=== PATIENT | female | born 1945 | race Caucasian/White ===

== ENCOUNTER 2016-12-04 07:26 | Day surgery (SDC) | payer MEDICARE, OTHER ==
[2016-11-29 10:54] VITALS: BMI 23.1
[~2016-12-04 07:26] MED LIST: LACTATED RINGERS 1,000 ML IV SCH; LIDOCAINE 1% 20 ML VIAL (10MG/ML) FOR IV START INTRADERMA PRN
[2016-12-04 07:41] VITALS: RESP 16; TEMP 97.4
[2016-12-04] MEDS ORDERED: PROPOFOL 10 MG/ML 20 ML VIAL IV ONE (07:50)
--- NOTE | 2016-12-04 07:54 | P.GSHP ---
History of Present Illness H&P Date: 12/04/16 Chief Complaint: Screening colonoscopy This a 71-year-old female who presents today for screening colonoscopy. Patient states her last colonoscopy approximately 6 years ago. She denies a significant GI complaints. - Constitutional Constitutional: Reports as per HPI Past Medical History Past Medical History: Atrial Fibrillation, COPD, CVA/TIA, Fibromyalgia, Hyperlipidemia, Hypertension, Seizure Disorder, Thyroid Disorder Additional Past Medical History / Comment(s): SEIZURE- LAST ONE 2007 History of Any Multi-Drug Resistant Organisms: None Reported Past Surgical History: Heart Catheterization, Hysterectomy Additional Past Surgical History / Comment(s): HILDA CATARACT, cardioversion 2013 Past Anesthesia/Blood Transfusion Reactions: No Reported Reaction Past Psychological History: No Psychological Hx Reported Additional Psychological History / Comment(s): CYMBALTA Smoking Status: Current every day smoker Past Alcohol Use History: Occasional Additional Past Alcohol Use History / Comment(s): STARTED SMOKING AT AGE 18 SMOKES LESS THAN A 1/2PPD Past Drug Use History: None Reported - Past Family History Father Additional Family Medical History / Comment(s): AT AGE 96, MACULAR DEGENERATION, AFIB AT AGE 90 Mother Family Medical History: No Reported History Additional Family Medical History / Comment(s): MOM AT AGE 89-ALZHEIMERS Medications and Allergies Home Medications Medication Instructions Recorded Confirmed Type Baclofen [Lioresal] 10 mg PO QAM 07/27/14 12/04/16 History DULoxetine HCL [Cymbalta] 60 mg PO QAM 07/27/14 12/04/16 History Gabapentin [Neurontin] 600 mg PO TID 07/27/14 12/04/16 History Levothyroxine Sodium [Synthroid] 75 mcg PO QAM 07/27/14 12/04/16 History Cholecalciferol [Vitamin D3] 1,000 unit PO DAILY 09/01/14 12/04/16 History Digoxin [Digox] 125 mcg PO QAM 09/01/14 12/04/16 History Metoprolol Tartrate [Lopressor] 12.5 mg PO BID 09/01/14 12/04/16 History Niacin 250 mg PO DAILY 09/01/14 12/04/16 History Fluticasone/Salmeterol [Advair 1 puff INHALATION RT-BID PRN 10/25/16 12/04/16 History 250-50 Diskus] lamoTRIgine [LaMICtal] 25 mg PO BID 10/25/16 12/04/16 History Simvastatin [Zocor] 40 mg PO HS 10/26/16 12/04/16 History Aspirin 81 mg PO DAILY 11/29/16 12/04/16 History Allergies Allergy/AdvReac Type Severity Reaction Status Date / Time adhesive tape Allergy Rash/ITCHIN Verified 11/29/16 10:14 G latex Allergy Rash/Hives Verified 11/29/16 10:14 meperidine HCl [From Demerol] AdvReac Nausea & Verified 11/29/16 10:14 Vomiting,HEADACHE Surgical - Exam Vital Signs Temp Pulse Resp BP Pulse Ox 97.4 F L 74 16 133/80 99 12/04/16 07:39 12/04/16 07:39 12/04/16 07:39 12/04/16 07:39 12/04/16 07:39 - General well developed, no distress - Eyes PERRL - ENT normal pinna - Neck no masses - Respiratory normal expansion - Cardiovascular Rhythm: regular - Abdomen Abdomen: soft, non tender Assessment and Plan Plan: We'll perform screening colonoscopy.
--- NOTE | 2016-12-04 08:06 | P.OP ---
Date of Procedure: 12/04/16 Preoperative Diagnosis: Screening colonoscopy Postoperative Diagnosis: Diverticulosis External hemorrhoids Procedure(s) Performed: Colonoscopy Anesthesia: MAC Surgeon: Michael Mendoza Pathology: none sent Condition: stable Disposition: PACU Description of Procedure: The patient's placed on the endoscopy table in the lateral position. She received IV sedation. Digital rectal exam was performed which revealed external hemorrhoids. The flexible colonoscope was then placed patient anus passed throughout the entire colon. The ileocecal valve was visualized. The cecum, ascending and transverse colon appeared normal. In the descending and sigmoid: was mild diverticular changes. The scope was then brought back into the rectum. This appeared normal. Scope was withdrawn for patient.
[2016-12-04 08:34] VITALS: BP 157/98; PULSE 67
== END 2016-12-04 08:46 | disposition home or self-care (01) ==
LOC: ORWHC2ENDO 07:26
PROVIDERS: ATTEND Surgery
DX: Z12.11 Encounter for screening for malignant neoplasm of colon (principal); K57.30 Diverticulosis of large intestine without perforation or abscess without bleeding; K64.4 Residual hemorrhoidal skin tags; I10 Essential (primary) hypertension; F17.200 Nicotine dependence, unspecified, uncomplicated; I48.91 Unspecified atrial fibrillation; M79.7 Fibromyalgia; E07.9 Disorder of thyroid, unspecified; E78.5 Hyperlipidemia, unspecified; G40.909 Epilepsy, unspecified, not intractable, without status epilepticus; Z88.5 Allergy status to narcotic agent; Z91.040 Latex allergy status; Z79.899 Other long term (current) drug therapy; Z79.82 Long term (current) use of aspirin; Z79.51 Long term (current) use of inhaled steroids; Z86.73 Personal history of transient ischemic attack (TIA), and cerebral infarction without residual deficits
CPT/HCPCS: J2704; G0121

== ENCOUNTER → 2017-04-25 | Outpatient (CLI) | payer MEDICARE, OTHER ==
[2017-04-25 16:43] LABS: Anisocytosis Slight; Basophils # (A) 0.1 k/uL (0-0.2); Basophils % (A) 1 %; CH 22.3; Eosinophils # (A) 0.1 k/uL (0-0.7); Eosinophils % (A) 2 %; HCT 35.3 % (34.0-46.0); HDW 3.29; HGB 10.5 gm/dL (11.4-16.0); Hypochromasia Marked; Luc # (Auto) 0.11; Luc % (Auto) 2; Lymphocytes # (A) 1.1 k/uL (1.0-4.8); Lymphocytes % (A) 19 %; MCH 23.1 pg (25.0-35.0); MCHC 29.9 g/dL (31.0-37.0); MCV 77.3 fL (80.0-100.0); Mean Platelet Volume 6.4; Microcytosis Slight; Monocytes # (A) 0.4 k/uL (0-1.0); Monocytes % (A) 7 %; Neutrophils # (A) 3.9 k/uL (1.3-7.7); Neutrophils % (A) 69 %; RBC 4.57 m/uL (3.80-5.40); RDW 17.1 % (11.5-15.5); WBC 5.7 k/uL (3.8-10.6)
[2017-04-25 16:57] LABS: Calcium 9.4 mg/dL (8.4-10.2); Potassium 4.1 mmol/L (3.5-5.1); Total Bilirubin 0.8 mg/dL (0.2-1.3)
[2017-04-25 19:08] LABS: Hemoglobin A1C 5.3 % (4.2-6.1)
== END ==
LOC: LABWHC1 16:19
PROVIDERS: ATTEND Internal Medicine Geriatric Medicine
DX: E03.9 Hypothyroidism, unspecified (principal); F41.1 Generalized anxiety disorder; R79.89 Other specified abnormal findings of blood chemistry
CPT/HCPCS: 36415; 80053; 83036; 84439; 84443; 85025

== ENCOUNTER → 2018-01-23 | Outpatient (CLI) | payer MEDICARE, OTHER ==
[2018-01-23 07:53] LABS: Basophils # (A) 0.1 k/uL (0-0.2); Basophils % (A) 1 %; Eosinophils # (A) 0.2 k/uL (0-0.7); Eosinophils % (A) 4 %; HCT 43.6 % (34.0-46.0); HGB 14.6 gm/dL (11.4-16.0); Lymphocytes # (A) 0.8 k/uL (1.0-4.8); Lymphocytes % (A) 12 %; MCHC 33.4 g/dL (31.0-37.0); MCV 89.8 fL (80.0-100.0); Mean Platelet Volume 6.7; Monocytes # (A) 0.3 k/uL (0-1.0); Monocytes % (A) 5 %; Neutrophils # (A) 4.8 k/uL (1.3-7.7); Neutrophils % (A) 76 %; Platelet Count 228 k/uL (150-450); RBC 4.86 m/uL (3.80-5.40); RDW 13.3 % (11.5-15.5); WBC 6.3 k/uL (3.8-10.6)
[2018-01-23 08:20] LABS: ALT 12 U/L (9-52); AST 10 U/L (14-36); Albumin 3.8 g/dL (3.5-5.0); Alkaline Phosphatase 81 U/L (38-126); Anion Gap 10 mmol/L; Blood Urea Nitrogen 13 mg/dL (7-17); Calcium 9.4 mg/dL (8.4-10.2); Carbon Dioxide 27 mmol/L (22-30); Chloride 105 mmol/L (98-107); Cholesterol 167 mg/dL (<200); Glucose 85 mg/dL (74-99); HDL Cholesterol 58 mg/dL (40-60); LDL Cholesterol,Calculated 96 mg/dL (0-99); Potassium 4.2 mmol/L (3.5-5.1); Sodium 142 mmol/L (137-145); Total Bilirubin 0.6 mg/dL (0.2-1.3); Total Protein 6.5 g/dL (6.3-8.2); Triglycerides 63 mg/dL (<150)
[2018-01-23 08:24] LABS: T4, Free (Free Thyroxine) 1.28 ng/dL (0.78-2.19)
[2018-01-23 16:53] LABS: Hemoglobin A1C 4.2 % (4.0-6.0)
== END | disposition home or self-care (01) ==
LOC: LABWHC1 07:10
PROVIDERS: ATTEND Internal Medicine Geriatric Medicine
DX: Z00.00 Encounter for general adult medical examination without abnormal findings (principal); E03.9 Hypothyroidism, unspecified; E78.5 Hyperlipidemia, unspecified; R79.89 Other specified abnormal findings of blood chemistry
CPT/HCPCS: 36415; 80053; 80061; 83036; 84439; 84443; 85025

== ENCOUNTER → 2018-07-21 | Outpatient (CLI) | payer MEDICARE, OTHER ==
--- NOTE | 2018-07-22 08:46 | BD ---
EXAMINATION TYPE: Axial Bone Density DATE OF EXAM: 07/21/2018 COMPARISON: 07/08/2016 CLINICAL HISTORY: Osteoporosis Height: 63 IN Weight: 132 LBS FRAX RISK QUESTIONS: Family History (Parent hip fracture): YES MOTHER Secondary Osteoporosis: 3. Menopause before 45: YES AGE 35 : Current Tobacco Use: YES RISK FACTORS HISTORY OF: Active: YES Diet low in dairy products/other sources of calcium: YES Postmenopausal woman: AGE 35 MEDICATIONS: Thyroid Medications: YES Which medication: Synthroid How Lon + YEARS Additional Medications: VIT D, IRON, SYNTHROID, CHOLESTEROL, BLOOD PRESSURE MEDS, DEPRESSION MEDS, FI BROMYALGIA MEDS, HEART MEDS EXAM MEASUREMENTS: Bone mineral densitometry was performed using the [employer] System. Bone mineral density as measured about the Lumbar spine is: ----- L1-L4(G/cm2): 1.014 T Score Values are as follows: ----- L2: -1.4 ----- L3: -1.5 ----- L4: -1.7 ----- L1-L4: -1.4 Bone mineral density has: Increased 5.4% since study of: 07/08/2016 Bone mineral density about the R hip (g/cm2): 0.752 Bone mineral density about the L hip (g/cm2): 0.717 T Score values are as follows: -----R Neck: -2.1 -----L Neck: -2.3 -----R Total: -1.2 -----L Total: -1.3 Bone mineral density has: Decreased -2.6% SINCE study of: 07/08/2016 IMPRESSION: Osteopenia (T Score between -2.5 and -1). There is increased risk of fracture and the patient may be considered for treatment. Re-Screen 2-5 years. NOTE: T-SCORE=SD OF THE YOUNG ADULT MEAN.
--- NOTE | 2018-07-22 14:21 | MM ---
Reason for exam: screening (asymptomatic). Last mammogram was performed 2 years ago. History: Patient is postmenopausal. Took hormonal contraceptives for 5 years. Physical Findings: A clinical breast exam by your physician is recommended on an annual basis and results should be correlated with mammographic findings. MG 3D Screening Mammo W/Cad Bilateral CC and MLO view(s) were taken. Technologist: RT Tiffany (R)(M) Prior study comparison: July 18, 2016, bilateral MG 3d screening mammo w/cad. February 23, 2014, bilateral digital screening mammo w/CAD. The breast tissue is heterogeneously dense. This may lower the sensitivity of mammography. No significant changes when compared with prior studies. ASSESSMENT: Benign, BI-RAD 2 RECOMMENDATION: Routine screening mammogram of both breasts in 1 year.
== END | disposition home or self-care (01) ==
LOC: RADMAMWWP 15:29
PROVIDERS: ATTEND Internal Medicine Geriatric Medicine
DX: Z12.31 Encounter for screening mammogram for malignant neoplasm of breast (principal); M85.80 Other specified disorders of bone density and structure, unspecified site; M81.0 Age-related osteoporosis without current pathological fracture
CPT/HCPCS: 77063; 77067; 77080

== ENCOUNTER → 2018-11-18 | Outpatient (CLI) | payer MEDICARE ==
[2018-11-18 15:19] LABS: Basophils % (A) 1 %; Eosinophils # (A) 0.2 k/uL (0-0.7); Eosinophils % (A) 3 %; HCT 45.3 % (34.0-46.0); HGB 14.6 gm/dL (11.4-16.0); Lymphocytes # (A) 0.9 k/uL (1.0-4.8); Lymphocytes % (A) 14 %; MCH 29.1 pg (25.0-35.0); MCHC 32.3 g/dL (31.0-37.0); MCV 90.2 fL (80.0-100.0); Mean Platelet Volume 7.2; Monocytes # (A) 0.3 k/uL (0-1.0); Monocytes % (A) 6 %; Neutrophils # (A) 4.6 k/uL (1.3-7.7); Neutrophils % (A) 75 %; Platelet Count 234 k/uL (150-450); RBC 5.02 m/uL (3.80-5.40); RDW 13.2 % (11.5-15.5); WBC 6.1 k/uL (3.8-10.6)
[2018-11-18 15:39] LABS: Albumin 3.9 g/dL (3.5-5.0); Calcium 9.3 mg/dL (8.4-10.2); Potassium 4.7 mmol/L (3.5-5.1); Total Bilirubin 0.7 mg/dL (0.2-1.3); Total Protein 6.8 g/dL (6.3-8.2)
--- NOTE | 2018-11-18 16:11 | US ---
EXAMINATION TYPE: US carotid duplex BILAT DATE OF EXAM: 11/18/2018 COMPARISON: US 2013 CLINICAL HISTORY: altered mental status R41.82. Altered mental status EXAM MEASUREMENTS: RIGHT: Peak Systolic Velocity (PSV) cm/sec ----- Right CCA: 55.2 ----- Right ICA: 67.6 ----- Right ECA: 66.6 ICA/CCA ratio: 1.2 RIGHT: End Diastole cm/sec ----- Right CCA: 14.7 ----- Right ICA: 18.4 ----- Right ECA: 0.0 LEFT: Peak Systolic Velocity (PSV) cm/sec ----- Left CCA: 58.9 ----- Left ICA: 76.1 ----- Left ECA: 63.9 ICA/CCA ratio: 1.3 LEFT: End Diastole cm/sec ----- Left CCA: 14.9 ----- Left ICA: 24.8 ----- Left ECA: 0.0 VERTEBRALS (direction of flow): Right Vertebral: Antegrade Left Vertebral: Antegrade Rhythm: Arrhythmia No elevated velocities, no significant stenosis. Intimal thickening and areas of atherosclerotic plaq ue. IMPRESSION: 1. No significant hemodynamic stenosis as visualized. 2. Correlate for cardiac dysrhythmia. Criteria for Assigning % of Stenosis / Diameter reduction (Estimation based on the indirect measurements of the internal carotid artery velocities (ICA PSV). 1. Normal (no stenosis)=ICA PSV < 125 cm/s: ratio < 2.0: ICA EDV<40 cm/s. 2. Less than 50% stenosis=ICA PSV < 125 cm/s: ratio < 2.0: ICA EDV<40 cm/s. 3. 50 to 69% stenosis=ICA PSV of 125 to 230 cm/s: ration 2.0 ? 4.0: ICA EDV 40-100 cm/s. 4. Greater than 70% stenosis to near occlusion= ICA PSV > 230 cm/s: ratio > 4.0: ICA EDV > 100 cm/s. 5. Near occlusion= ICA PSV velocities may be low or undetectable: variable ratio and ICA EDV. 6. Total occlusion=unable to detect flow.
--- NOTE | 2018-11-18 17:01 | CT ---
EXAMINATION TYPE: CT brain wo/w con DATE OF EXAM: 11/18/2018 COMPARISON: 10/13/2014 HISTORY: Confusion CT DLP: 2253 mGycm Automated Exposure Control for Dose Reduction was Utilized. TECHNIQUE: CT scan of the head is performed with IV contrast.,CT scan of the head is performed withou t and with without and with IV Contrast, patient injected with 100 mL of Isovue 300. FINDINGS: There is a similar appearing soft tissue attenuated heterogenous 1.2 cm in thickness subc utaneous elongated lesion within the frontal scalp in comparison to exam of 2013. There is no new cor tical erosion seen. Additional scalp lesion within the left frontal vertex is also similar to the olivia or 2014 containing dystrophic calcifications. These both demonstrate heterogenous enhancement. Other smaller scalp lesions are again appreciated. Noncontrast images show no acute intracranial hemorrhage or midline shift. Few nonenhancing hypoatten uated foci are scattered throughout the subcortical and periventricular white matter. The ventricles and sulci are symmetrically prominent compatible with age-related volume loss. Additio sylvia there is ex vacuo dilatation of the anterior horn of the left lateral ventricle from the lacuna r injury. There is an old lacunar infarct of the left caudate nucleus involving the anterior limb of the left internal capsule. Postcontrast images show no suspicious enhancing intraparenchymal mass. The globes are intact and the visualized sinuses are clear. The left posterior communicating artery is either extremely diminutive or congenitally absent and therefore the [place] does not appear complete. Atherosclerosis is noted of the cavernous and supraclinoid portions of the internal carotid arteries. IMPRESSION: 1. Old lacunar infarct involving the left caudate nucleus and anterior limb of the left internal caps ule. 2. Similar appearing heterogenous enhancing scalp masses in comparison to the exam of 2013. There is no new cortical erosion. Dermatologic evaluation is recommended. 3. No abnormal intracranial enhancement, acute intracranial hemorrhage, or midline shift. 4. Age-related cerebral volume loss and mild burden nonspecific white matter change, most commonly on the basis of microangiopathy.
== END | disposition home or self-care (01) ==
LOC: RADUSMAIN 14:38
PROVIDERS: ATTEND Internal Medicine Geriatric Medicine
DX: G31.1 Senile degeneration of brain, not elsewhere classified (principal); R90.89 Other abnormal findings on diagnostic imaging of central nervous system; R41.82 Altered mental status, unspecified
CPT/HCPCS: 80053; 85025; 93880; 70470; Q9967

== ENCOUNTER → 2018-11-26 | Outpatient (CLI) | payer MEDICARE ==
--- NOTE | 2018-11-26 20:32 | EEG ---
ELECTROENCEPHALOGRAM REPORT DATE OF OUTPATIENT EE11/26/2018 ELECTROENCEPHALOGRAPHIC EXAMINATION REPORT: INDICATION FOR EXAMINATION: This patient is a 73-year-old female being evaluated for increasing symptoms of forgetfulness and memory loss. AGE: [age]. EEG FINDINGS: A routine 21-channel awake digital EEG recording was accomplished utilizing the 10-20 international system with bipolar and referential montages. The background activity in the most alert resting state consists of a low to medium amplitude, fairly well developed and well sustained 6-7 Hz activity over the posterior head regions. This posterior rhythm attenuates to eye opening. There is a small amount of low amplitude 18-20 Hz beta activity seen maximally over the anterior head regions. Muscle and movement artifact was observed on a few occasions during the tracing. Hyperventilation was not performed. Photic stimulation at flash frequencies of 2-30 Hz produced a minimal occipital driving response. No epileptiform discharges were seen. IMPRESSION: This EEG is mildly abnormal in a diffuse fashion due to slight slowing of the EEG background. The EEG failed to reveal any focal, lateralized, or epileptiform abnormalities. Clinical correlation is recommended. MMODL / IJN: [id number] /
== END ==
LOC: NEUROMAIN 13:23
PROVIDERS: ATTEND Internal Medicine Geriatric Medicine
DX: R41.82 Altered mental status, unspecified (principal)
CPT/HCPCS: 95816

== ENCOUNTER → 2018-11-27 | Outpatient (CLI) | payer MEDICARE ==
--- NOTE | 2018-11-27 14:38 | XR ---
EXAMINATION TYPE: XR chest 2V DATE OF EXAM: 11/27/2018 COMPARISON: Prior chest x-ray 07/18/2016 HISTORY: Pleurisy, chest pain TECHNIQUE: Frontal and lateral views of the chest are obtained. FINDINGS: Patient is again rotated. Heart size is stable and may be accentuated by rotation. Interst itium is increased. No evident pneumothorax or pleural effusion. Arthropathy noted in the shoulders. Airspace disease present in the left lower lobe. Prominent lung volumes suggest COPD. IMPRESSION: Correlate for left lower lobe pneumonia. Follow-up to resolution. A [place] level critical message alert has been initiated for Luanne Pan MD via the [employer] Critical Results System on 11/27/2018 2:35 PM. This message alert has been sent to Luanne Pan MD via the preferences provided by the clinician for the receipt of Radiology Critical Findings. Mess age ID [id number].
== END ==
LOC: RADXRMAIN 13:54
PROVIDERS: ATTEND Family Medicine
DX: R09.1 Pleurisy (principal)
CPT/HCPCS: 71046

== ENCOUNTER 2018-12-23 12:14 | Inpatient (IN) | payer MEDICARE ==
[2018-12-23] MEDS ORDERED: LORazepam 2 MG/ML INJ IV STA ×2 (13:06→15:21)
--- NOTE | 2018-12-23 13:06 | ED ---
General Adult HPI - General Chief complaint: Shortness of Breath Stated complaint: Diff Breathing Time Seen by Provider: 12/23/18 12:15 Source: patient, RN notes reviewed Mode of arrival: wheelchair Limitations: no limitations - History of Present Illness Initial comments: This is a 73-year-old female presents emergency Department with a past medical history significant for smoking and atrial fibrillation. Patient states she is on a blood thinner and it is called Pradaxa. Patient comes in today stating she 's had difficulty breathing since this morning. states his been longer than that. Patient also complains of generalized weakness which is been ongoing for at least a week. Patient went to see her primary medical care doctor in the medical doctor sent into the emergency department to be evaluated. Patient denies any cough. Patient denies any palpitations. Patient denies any chest pain. Patient denies lightheadedness dizziness or syncopal episode. Patient denies any abdominal pain patient denies nausea vomiting diarrhea. Patient denies any swelling to legs or calf tenderness - Related Data Home Medications Medication Instructions Recorded Confirmed DULoxetine HCL [Cymbalta] 60 mg PO QAM 07/27/14 12/23/18 Gabapentin [Neurontin] 600 mg PO TID 07/27/14 12/23/18 Digoxin [Digox] 125 mcg PO QAM 09/01/14 12/23/18 Aspirin 81 mg PO DAILY 11/29/16 12/23/18 Budesonide/Formoterol Fumarate 2 puff INHALATION RT-BID 12/23/18 12/23/18 [Symbicort 160-4.5 Mcg Inhaler] Dabigatran [Pradaxa] 150 mg PO BID 12/23/18 12/23/18 Ferrous Sulfate [Feosol] 325 mg PO DAILY 12/23/18 12/23/18 Levothyroxine Sodium [Synthroid] 50 mcg PO DAILY 12/23/18 12/23/18 Metoprolol Tartrate [Lopressor] 25 mg PO BID 12/23/18 12/23/18 Simvastatin [Zocor] 80 mg PO HS 12/23/18 12/23/18 clonazePAM [KlonoPIN] 0.5 mg PO BID PRN 12/23/18 12/23/18 Allergies Allergy/AdvReac Type Severity Reaction Status Date / Time adhesive tape Allergy Rash/ITCHIN Verified 12/23/18 12:16 G codeine Allergy Unknown Verified 12/23/18 12:16 latex Allergy Rash/Hives Verified 12/23/18 12:16 meperidine HCl [From Demerol] AdvReac Nausea & Verified 12/23/18 12:16 Vomiting,HEADACHE Review of Systems ROS Statement: Those systems with pertinent positive or pertinent negative responses have been documented in the HPI. ROS Other: All systems not noted in ROS Statement are negative. Past Medical History Past Medical History: Atrial Fibrillation, COPD, CVA/TIA, Fibromyalgia, Hyperlipidemia, Hypertension, Seizure Disorder, Thyroid Disorder Additional Past Medical History / Comment(s): SEIZURE- LAST ONE 2007 History of Any Multi-Drug Resistant Organisms: None Reported Past Surgical History: Heart Catheterization, Hysterectomy Additional Past Surgical History / Comment(s): HILDA CATARACT, cardioversion 2013 Past Anesthesia/Blood Transfusion Reactions: No Reported Reaction Past Psychological History: No Psychological Hx Reported Smoking Status: Current some day smoker Past Alcohol Use History: Occasional Past Drug Use History: None Reported - Past Family History Father Additional Family Medical History / Comment(s): AT AGE 96, MACULAR DEGENERATION, AFIB AT AGE 90 Mother Family Medical History: No Reported History Additional Family Medical History / Comment(s): MOM AT AGE 89-ALZHEIMERS General Exam - General Exam Comments Initial Comments: GENERAL: Patient is well-developed and well-nourished. Patient is nontoxic and well- hydrated and is in mild distress. ENT: Neck is soft and supple. No significant lymphadenopathy is noted. Oropharynx is clear. Moist mucous membranes. Neck has full range of motion without eliciting any pain. EYES: The sclera were anicteric and conjunctiva were pink and moist. Extraocular movements were intact and pupils were equal round and reactive to light. Eyelids were unremarkable. PULMONARY: Unlabored respirations. Good breath sounds bilaterally. No audible rales rhonchi or wheezing was noted. CARDIOVASCULAR: Patient is a regular rate and rhythm. At about 115 beats a minute ABDOMEN: Soft and nontender with normal bowel sounds. No palpable organomegaly was noted. There is no palpable pulsatile mass. SKIN: Skin is clear with no lesions or rashes and otherwise unremarkable. NEUROLOGIC: Patient is alert and oriented x3. Cranial nerves II through XII are grossly intact. Motor and sensory are also intact. Normal speech, volume and content. Symmetrical smile. MUSCULOSKELETAL: Normal extremities with adequate strength and full range of motion. No lower extremity swelling or edema. No calf tenderness. LYMPHATICS: No significant lymphadenopathy is noted PSYCHIATRIC: Normal psychiatric evaluation. 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 Patient's EKG shows no ST segment elevation there is some depression precordial leads V5 and V6 but that is seen on previous EKG as well. Cardiac enzymes will be obtained Chest x-ray showed mild venous congestion. I started the patient on Lasix. I spoke with Dr. Mendez she agreed to admit the patient admitted the patient I wrote admitting orders and consult cardiology I ordered an echo I continue the Lasix and Nitropaste on the floor. - Lab Data Result diagrams: 12/23/18 13:10 12/23/18 13:10 Lab Results 12/23/18 12/23/18 12/23/18 Range/Units 13:10 13:10 13:10 WBC 9.0 (3.8-10.6) k/uL RBC 5.63 H (3.80-5.40) m/uL Hgb 16.4 H (11.4-16.0) gm/dL Hct 48.4 H (34.0-46.0) % MCV 86.0 (80.0-100.0) fL MCH 29.1 (25.0-35.0) pg MCHC 33.8 (31.0-37.0) g/dL RDW 14.2 (11.5-15.5) % Plt Count 136 L (150-450) k/uL Neutrophils % 85 % Lymphocytes % 8 % Monocytes % 4 % Eosinophils % 2 % Basophils % 0 % Neutrophils # 7.7 (1.3-7.7) k/uL Lymphocytes # 0.7 L (1.0-4.8) k/uL Monocytes # 0.4 (0-1.0) k/uL Eosinophils # 0.1 (0-0.7) k/uL Basophils # 0.0 (0-0.2) k/uL PT (9.0-12.0) sec INR (<1.2) APTT (22.0-30.0) sec D-Dimer (<0.60) mg/L FEU Sodium 137 (137-145) mmol/L Potassium 4.4 (3.5-5.1) mmol/L Chloride 106 (98-107) mmol/L Carbon Dioxide 23 (22-30) mmol/L Anion Gap 8 mmol/L BUN 17 (7-17) mg/dL Creatinine 0.93 (0.52-1.04) mg/dL Est GFR (CKD-EPI)AfAm 71 (>60 ml/min/1.73 sqM) Est GFR (CKD-EPI)NonAf 62 (>60 ml/min/1.73 sqM) Glucose 82 (74-99) mg/dL Calcium 9.3 (8.4-10.2) mg/dL Magnesium 1.8 (1.6-2.3) mg/dL Total Bilirubin 1.6 H (0.2-1.3) mg/dL AST 15 (14-36) U/L ALT 19 (9-52) U/L Alkaline Phosphatase 60 (38-126) U/L Total Creatine Kinase 24 L (30-135) U/L CK-MB (CK-2) 3.2 H (0.0-2.4) ng/mL CK-MB (CK-2) Rel Index 13.3 Troponin I 0.044 H* (0.000-0.034) ng/mL NT-Pro-B Natriuret Pep pg/mL Total Protein 5.8 L (6.3-8.2) g/dL Albumin 3.3 L (3.5-5.0) g/dL 12/23/18 12/23/18 Range/Units 13:10 13:10 WBC (3.8-10.6) k/uL RBC (3.80-5.40) m/uL Hgb (11.4-16.0) gm/dL Hct (34.0-46.0) % MCV (80.0-100.0) fL MCH (25.0-35.0) pg MCHC (31.0-37.0) g/dL RDW (11.5-15.5) % Plt Count (150-450) k/uL Neutrophils % % Lymphocytes % % Monocytes % % Eosinophils % % Basophils % % Neutrophils # (1.3-7.7) k/uL Lymphocytes # (1.0-4.8) k/uL Monocytes # (0-1.0) k/uL Eosinophils # (0-0.7) k/uL Basophils # (0-0.2) k/uL PT 10.5 (9.0-12.0) sec INR 1.0 (<1.2) APTT 27.6 (22.0-30.0) sec D-Dimer <0.17 (<0.60) mg/L FEU Sodium (137-145) mmol/L Potassium (3.5-5.1) mmol/L Chloride (98-107) mmol/L Carbon Dioxide (22-30) mmol/L Anion Gap mmol/L BUN (7-17) mg/dL Creatinine (0.52-1.04) mg/dL Est GFR (CKD-EPI)AfAm (>60 ml/min/1.73 sqM) Est GFR (CKD-EPI)NonAf (>60 ml/min/1.73 sqM) Glucose (74-99) mg/dL Calcium (8.4-10.2) mg/dL Magnesium (1.6-2.3) mg/dL Total Bilirubin (0.2-1.3) mg/dL AST (14-36) U/L ALT (9-52) U/L Alkaline Phosphatase (38-126) U/L Total Creatine Kinase (30-135) U/L CK-MB (CK-2) (0.0-2.4) ng/mL CK-MB (CK-2) Rel Index Troponin I (0.000-0.034) ng/mL NT-Pro-B Natriuret Pep 5440 pg/mL Total Protein (6.3-8.2) g/dL Albumin (3.5-5.0) g/dL Critical Care Time Critical Care Time: Yes Total Critical Care Time: 35 Disposition Clinical Impression: Acute pulmonary edema Disposition: ADMITTED IP TO THIS HOSP Referrals: Rafy Jones MD [Primary Care Provider] - 1-2 days Time of Disposition: 15:05
[2018-12-23 13:37] LABS: Basophils % (A) 0 %; Eosinophils # (A) 0.1 k/uL (0-0.7); Eosinophils % (A) 2 %; HCT 48.4 % (34.0-46.0); HGB 16.4 gm/dL (11.4-16.0); Lymphocytes # (A) 0.7 k/uL (1.0-4.8); Lymphocytes % (A) 8 %; MCH 29.1 pg (25.0-35.0); MCHC 33.8 g/dL (31.0-37.0); Mean Platelet Volume 6.7; Monocytes # (A) 0.4 k/uL (0-1.0); Monocytes % (A) 4 %; Neutrophils # (A) 7.7 k/uL (1.3-7.7); Neutrophils % (A) 85 %; Platelet Count 136 k/uL (150-450); RBC 5.63 m/uL (3.80-5.40); RDW 14.2 % (11.5-15.5)
[2018-12-23 13:42] LABS: Albumin 3.3 g/dL (3.5-5.0); Calcium 9.3 mg/dL (8.4-10.2); Magnesium 1.8 mg/dL (1.6-2.3); Potassium 4.4 mmol/L (3.5-5.1); Total Bilirubin 1.6 mg/dL (0.2-1.3); Total Protein 5.8 g/dL (6.3-8.2)
[2018-12-23 13:52] LABS: Partial Thromboplastin Time 27.6 sec (22.0-30.0); Prothrombin Time 10.5 sec (9.0-12.0)
--- NOTE | 2018-12-23 13:56 | XR ---
EXAMINATION TYPE: XR chest 2V DATE OF EXAM: 12/23/2018 COMPARISON: 11/27/2018 HISTORY: 73-year-old female shortness of breath, difficulty breathing an chest pain TECHNIQUE: AP and lateral views FINDINGS: Heart mildly enlarged. Mild interstitial prominence. Hyperinflation with increased AP chest dimension . Large appearance to the main right pulmonary artery on the lateral view. No consolidation or pleura l effusion. Degenerative changes at the shoulders. IMPRESSION: Cardiomegaly, pulmonary arterial hypertension, and possible underlying COPD. Correlate for mild pulmo nary vascular congestion. No eugenio pulmonary edema.
[2018-12-23 14:12] LABS: Troponin I 0.044 ng/mL (0.000-0.034)
[2018-12-23 14:29] LABS: D-Dimer <0.17 mg/L FEU (<0.60)
[2018-12-23 14:33] LABS: Creatine Kinase MB 3.2 ng/mL (0.0-2.4)
[2018-12-23] MEDS ORDERED: FUROSEMIDE 10 MG/ML 4 ML VIAL IV STA (15:01)
[2018-12-23] MEDS ORDERED: NITROGLYCERIN OINT 1 INCH/GM PACKET TOPICAL STA (15:23)
[2018-12-23] MEDS ORDERED: LORazepam 0.5 MG TAB PO STA (17:33)
[2018-12-23] MEDS: SYMBICORT 160-4.5 MCG INHALER INHALATION SCH (19:34)
[2018-12-23] MEDS: METOPROLOL TARTRATE 25 MG TAB PO SCH (21:02)
[2018-12-23] MEDS: ATORVASTATIN 40 MG TAB PO SCH (21:02)
[2018-12-23] MEDS: GABAPENTIN 300 MG CAP PO SCH (21:02)
[2018-12-23] MEDS: NITROGLYCERIN OINT 1 INCH/GM PACKET TOPICAL SCH (21:03)
[2018-12-23] MEDS: DABIGATRAN 150 MG CAP PO SCH (21:03)
[2018-12-24] MEDS ORDERED: FUROSEMIDE 10 MG/ML 4 ML VIAL IV SCH (04:00)
[2018-12-24] MEDS: LEVOTHYROXINE 50 MCG TAB PO SCH (06:28)
[2018-12-24] MEDS: SYMBICORT 160-4.5 MCG INHALER INHALATION SCH ×2 (08:10→19:54)
[2018-12-24] MEDS ORDERED: RX INFO: IV CONTRAST WAS GIVEN 1 EACH MISC MISCELLANE PRN (09:12)
[2018-12-24] MEDS: METOPROLOL TARTRATE 25 MG TAB PO SCH (09:59)
[2018-12-24] MEDS: GABAPENTIN 300 MG CAP PO SCH ×3 (09:59→21:31)
[2018-12-24] MEDS: NITROGLYCERIN OINT 1 INCH/GM PACKET TOPICAL SCH (09:59)
[2018-12-24] MEDS: DABIGATRAN 150 MG CAP PO SCH ×2 (09:59→21:31)
[2018-12-24] MEDS: FERROUS SULFATE 325 MG TAB PO SCH (09:59)
[2018-12-24] MEDS: ASPIRIN 81 MG PO SCH (09:59)
[2018-12-24] MEDS: DULoxetine HCL 60 MG CAPSULE.DR PO SCH (09:59)
[2018-12-24] MEDS: DIGOXIN 125 MCG TAB PO SCH (09:59)
[2018-12-24 10:15] VITALS: BMI 20.2
--- NOTE | 2018-12-24 10:17 | P.CRDCN ---
History of Present Illness Consult date: 12/24/18 Requesting physician: Raghu Mcmullen Consult reason: sycope Chief complaint: Syncope History of present illness: This is a 73-year-old female who follows regularly with Dr. Moreno in the office. She has a known history of chronic persistent atrial fibrillation, hypertension, hyperlipidemia, history of seizures, nicotine dependence, neurofibromatosis, patient did have a cardiac catheterization performed in July 2014 which revealed mild nonobstructive coronary artery disease involving the proximal LAD. Medical therapy advised at that time. Patient also underwent a cardioversion back in 2013. EKG on this admission shows atrial fibrillation with a moderately rapid ventricular response. She presented to the hospital on this occasion with symptoms of difficulty in breathing, with extreme weakness. According to the patient, since she has generally not been feeling well. She also states that she's had a recent admission to [facility]. She's been extremely weak, achy all over, denies any chest discomfort, denies any lightheadedness or dizziness, no syncopal episodes. Chest x-ray shows cardiomegaly, pulmonary arterial hypertension, possible underlying COPD. Correlate for mild pulmonary vascular congestion. I pressure on admission here 120/70 with a heart rate in the 80s, 92% on room air. Blood pressure this morning 96/60 with a heart rate of 100, 96 % on room air. White blood cell count 9.0, hemoglobin 16.4, platelet count 136. D-dimer 0.17. Sodium 137, potassium 4.4, BUN 17 and creatinine 0.9. Mag level I.8. BNP 5440. The most recent echocardiogram with Doppler study available in our records here is back in 2013. Her ejection fraction at that time was 50-55%. At the time of my examination this morning, patient complains primarily of feeling weak, she is lying flat, and echo is being performed at the time of my examination, mildly short of breath. 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- pt stated rt side weaker than lt, neuropathy, neurofibromatosis, past uti-ecoloi 2015, stress test 2013 History of Any Multi-Drug Resistant Organisms: None Reported Past Surgical History: Cholecystectomy, Heart Catheterization, Hysterectomy Additional Past Surgical History / Comment(s): HILDA CATARACT, cardioversion 2013 , lap cholecystectomy 2015 Past Anesthesia/Blood Transfusion Reactions: No Reported Reaction Smoking Status: Former smoker - Past Family History Father Additional Family Medical History / Comment(s): AT AGE 96, MACULAR DEGENERATION, AFIB AT AGE 90 Mother Family Medical History: No Reported History Additional Family Medical History / Comment(s): MOM AT AGE 89-ALZHEIMERS Medications and Allergies Home Medications Medication Instructions Recorded Confirmed Type DULoxetine HCL [Cymbalta] 60 mg PO QAM 07/27/14 12/23/18 History Gabapentin [Neurontin] 600 mg PO TID 07/27/14 12/23/18 History Digoxin [Digox] 125 mcg PO QAM 09/01/14 12/23/18 History Aspirin 81 mg PO DAILY 11/29/16 12/23/18 History Budesonide/Formoterol Fumarate 2 puff INHALATION RT-BID 12/23/18 12/23/18 History [Symbicort 160-4.5 Mcg Inhaler] Dabigatran [Pradaxa] 150 mg PO BID 12/23/18 12/23/18 History Ferrous Sulfate [Feosol] 325 mg PO DAILY 12/23/18 12/23/18 History Levothyroxine Sodium [Synthroid] 50 mcg PO DAILY 12/23/18 12/23/18 History Metoprolol Tartrate [Lopressor] 25 mg PO BID 12/23/18 12/23/18 History Simvastatin [Zocor] 80 mg PO HS 12/23/18 12/23/18 History clonazePAM [KlonoPIN] 0.5 mg PO BID PRN 12/23/18 12/23/18 History Allergies Allergy/AdvReac Type Severity Reaction Status Date / Time adhesive tape Allergy Rash/ITCHIN Verified 12/23/18 12:16 G codeine Allergy Unknown Verified 12/23/18 12:16 latex Allergy Rash/Hives Verified 12/23/18 12:16 meperidine HCl [From Demerol] AdvReac Nausea & Verified 12/23/18 12:16 Vomiting,HEADACHE Physical Exam Vitals: Vital Signs Temp Pulse Pulse Resp BP BP Pulse Ox 12/24/18 08:30 97.9 F 108 H 16 96/60 96 12/24/18 04:00 97.2 F L 101 H 18 126/70 96 12/24/18 00:00 97.0 F L 76 18 89/58 96 12/23/18 20:00 97.5 F L 109 H 18 126/73 97 12/23/18 17:26 98.9 F 12/23/18 17:21 92 18 101/81 95 12/23/18 16:55 110 H 18 118/80 98 12/23/18 13:15 104 H 24 160/90 96 12/23/18 12:53 115 H 12/23/18 12:51 22 12/23/18 12:17 97 F L 81 24 120/78 92 L Intake and Output 12/23/18 12/24/18 12/24/18 22:59 06:59 14:59 Intake Total 10 Balance 10 Intake: IV 10 0.9 10 Other: Voiding Method Toilet Toilet # Voids 2 Weight 53.6 kg PHYSICAL EXAMINATION: GENERAL: 73-year-old female in no acute distress at the time of my examination HEENT: Head is atraumatic, tumor noted on the forehead from her neurofibromatosis,. Pupils equal, round. Sclera anicteric. Conjunctiva are clear. Mucous membranes of the mouth are moist. Neck is supple. There is no elevated jugular venous pressure.] bruit is heard. HEART EXAMINATION: Heart S1 and S2 irregularly irregular a systolic murmur is heard. CHEST EXAMINATION: Diminished air entry to bilateral bases ABDOMEN: Soft, nontender. Bowel sounds are heard. No organomegaly noted. EXTREMITIES: 2+ peripheral pulses with evidence of peripheral edema and no calf tenderness noted. NEUROLOGIC patient is awake, alert and oriented 3 . . Results 12/23/18 13:10 12/23/18 13:10 Cardiac Enzymes 12/23/18 12/23/18 Range/Units 13:10 13:10 AST 15 (14-36) U/L CK-MB (CK-2) 3.2 H (0.0-2.4) ng/mL Troponin I 0.044 H* (0.000-0.034) ng/mL Coagulation 12/23/18 Range/Units 13:10 PT 10.5 (9.0-12.0) sec APTT 27.6 (22.0-30.0) sec CBC 12/23/18 Range/Units 13:10 WBC 9.0 (3.8-10.6) k/uL RBC 5.63 H (3.80-5.40) m/uL Hgb 16.4 H (11.4-16.0) gm/dL Hct 48.4 H (34.0-46.0) % Plt Count 136 L (150-450) k/uL Comprehensive Metabolic Panel 12/23/18 Range/Units 13:10 Sodium 137 (137-145) mmol/L Potassium 4.4 (3.5-5.1) mmol/L Chloride 106 (98-107) mmol/L Carbon Dioxide 23 (22-30) mmol/L BUN 17 (7-17) mg/dL Creatinine 0.93 (0.52-1.04) mg/dL Glucose 82 (74-99) mg/dL Calcium 9.3 (8.4-10.2) mg/dL AST 15 (14-36) U/L ALT 19 (9-52) U/L Alkaline Phosphatase 60 (38-126) U/L Total Protein 5.8 L (6.3-8.2) g/dL Albumin 3.3 L (3.5-5.0) g/dL Current Medications Generic Name Dose Route Start Last Admin Trade Name Freq PRN Reason Stop Dose Admin Acetaminophen 650 mg 12/24/18 09:13 Tylenol Tab PO Q4HR PRN Fever and/ or Pain Aspirin 81 mg 12/24/18 09:00 Aspirin PO DAILY [facility] Atorvastatin Calcium 40 mg 12/23/18 21:00 12/23/18 21:02 Lipitor PO 40 mg HS TANA Administration Budesonide/Formoterol Fumarate 2 puff 12/23/18 20:00 12/24/18 08:10 Symbicort 160-4.5 Mcg Inhaler INHALATION 2 puff RT-BID TANA Administration Dabigatran 150 mg 12/23/18 21:00 12/23/18 21:03 Pradaxa PO 150 mg BID TANA Administration Digoxin 125 mcg 12/24/18 09:00 Lanoxin PO QAM [facility] Duloxetine HCl 60 mg 12/24/18 09:00 Cymbalta PO QAM [facility] Ferrous Sulfate 325 mg 12/24/18 09:00 Feosol PO DAILY [facility] Furosemide 40 mg 12/25/18 09:00 Lasix IV DAILY [facility] Gabapentin 600 mg 12/23/18 22:00 12/23/18 21:02 Neurontin PO 600 mg TID TANA Administration Levothyroxine Sodium 50 mcg 12/24/18 06:30 12/24/18 06:28 Synthroid PO 50 mcg 0630 TANA Administration Metoprolol Tartrate 25 mg 12/23/18 21:00 12/23/18 21:02 Lopressor PO 25 mg BID TANA Administration Miscellaneous Information 1 each 12/24/18 09:12 Rx Info: Iv Contrast Was Given MISCELLANE 12/26/18 09:12 DAILY PRN Per Protocol Nitroglycerin 1 inch 12/23/18 22:00 12/23/18 21:03 Nitro-Bid Oint TOPICAL 1 inch QID TANA Administration Intake and Output 12/23/18 12/24/18 12/24/18 22:59 06:59 14:59 Intake Total 10 Balance 10 Intake: IV 10 0.9 10 Other: Voiding Method Toilet Toilet # Voids 2 Weight 53.6 kg 12/23/18 13:10 12/23/18 13:10 EKG Interpretations (text) EKG shows atrial fibrillation with moderately rapid ventricular response Assessment and Plan Plan: Assessment and plan #1 symptoms of shortness of breath with associated progressive weakness. Evidence of mild congestive heart failure. Likely diastolic in nature. LV function in 2013 with 50-55%. BNP level 5440. #2 chronic persistent atrial fibrillation #3 hypertension #4 hyperlipidemia #5 hypothyroidism #6-year-old fibromatosis #7 history of seizures #8 depression and anxiety #9 abnormal troponin, patient denies having any chest discomfort. We will obtain 2 subsequent troponins. Echocardiogram with Doppler study has also been requested. She did have a cardiac catheterization performed in 2013 which revealed mild nonobstructive coronary artery disease in the proximal LAD. Plan Echocardiogram with Doppler study has been requested and is being performed this morning. We will obtain 2 subsequent troponins. Continue IV Lasix. Continue Pradaxa. Discontinue Nitropaste. Increase dose of beta tatum for more optimal heart rate control, check TSH level. Further recommendations will be based on these findings and the patient's clinical course. DNP note has been reviewed, I agree with a documented findings and plan of care. Patient was seen and examined.
[2018-12-24] MEDS ORDERED: METOPROLOL TARTRATE 25 MG TAB PO STA (11:30)
--- NOTE | 2018-12-24 11:34 | ECHOF ---
Referral Reason:LVF MEASUREMENTS -------- HEIGHT: 162.6 cm WEIGHT: 53.5 kg BP: IVSd: 1.3 cm (0.6 - 1.1) LVIDd: 2.9 cm (3.9 - 5.3) LVPWd: 1.2 cm (0.6 - 1.1) IVSs: 1.7 cm LVIDs: 2.0 cm LVPWs: 1.4 cm LAESV Index (A-L): 80.26 ml/m Ao Diam: 2.3 cm (2.0 - 3.7) AV Cusp: 1.8 cm (1.5 - 2.6) LA Diam: 4.7 cm (2.7 - 3.8) MV EXCURSION: 11.800 mm (> 18.000) MV EF SLOPE: 33 mm/s (70 - 150) EPSS: 0.1 cm AV maxP.95 mmHg AV meanP.82 mmHg RAP: 5.00 mmHg RVSP: 33.10 mmHg FINDINGS -------- Atrial fibrillation. This was a technically good study. The left ventricular size is normal. There is mild concentric left ventricular hypertrophy. Overa ll left ventricular systolic function is normal with, an EF between 55 - 60 %. The right ventricle is normal in size and function. LA is severely dilated >40 ml/m2 The right atrium is normal in size. Aortic valve is trileaflet and is mildly thickened. There is mild aortic valve sclerosis. Peak/me an gradient across the Aortic Valve is 14.95mmHg / 8.82mmHg. The mitral valve leaflets are mildly thickened. Mild mitral annular calcification present. There is trace mitral regurgitation. Mild tricuspid regurgitation present. The right ventricular systolic pressure, as measured by Doppl er, is 33.10mmHg. Pulmonic valve appears structurally normal. The aortic root size is normal. Normal inferior vena cava with normal inspiratory collapse consistent with estimated right atrial pre ssure of 5 mmHg. The pericardium is normal. CONCLUSIONS -------- 1. Atrial fibrillation. 2. This was a technically good study. 3. The left ventricular size is normal. 4. There is mild concentric left ventricular hypertrophy. 5. Overall left ventricular systolic function is normal with, an EF between 55 - 60 %. 6. The right ventricle is normal in size and function. 7. LA is severely dilated >40 ml/m2 8. The right atrium is normal in size. 9. Aortic valve is trileaflet and is mildly thickened. 10. There is mild aortic valve sclerosis. 11. Peak/mean gradient across the Aortic Valve is 14.95mmHg / 8.82mmHg. 12. The mitral valve leaflets are mildly thickened. 13. Mild mitral annular calcification present. 14. There is trace mitral regurgitation. 15. Mild tricuspid regurgitation present. 16. The right ventricular systolic pressure, as measured by Doppler, is 33.10mmHg. 17. Pulmonic valve appears structurally normal. 18. The aortic root size is normal. 19. Normal inferior vena cava with normal inspiratory collapse consistent with estimated right atrial pressure of 5 mmHg. 20. The pericardium is normal. RIPSHEAR OPERATOR: Zina Irving RDCS
--- NOTE | 2018-12-24 12:26 | P.HPIM ---
History of Present Illness H&P Date: 12/24/18 This is a 73-year-old female patient of Dr Jones, Dr. Rasmussen, Dr. Littlejohn. She has underlying history of epilepsy, neurofibromatosis, COPD, CAD, chronic atrial fibrillation on Pradaxa, hypertension, hyperlipidemia, active tobacco use and dependence, hypothyroidism. Patient gives history that she was having a hard time breathing was at Dr. Jones's office and was sent here. Patient apparently was also seen last week and was started on antibiotic. Patient complains of significant difficulty breathing especially with activity. She denies any phlegm production. She denies history of CHF. She denies any fluid or weight gain. She states she has had a weight loss of 10 pounds over the past 10 weeks but has been eating adequately. She denies any blood in her stools. She is sleeping with one pillow. Patient came into [facility] emergency center for evaluation chest x-ray shows cardiomegaly, pulmonary artery hypertension, possible underlying COPD. Correlate for mild pulmonary vascular congestion. Initial blood pressure 120/70, heart rate in the 80s. EKG was atrial fibrillation. Pulse ox 92% on room air. White count 9, hemoglobin 16.4, d-dimer was 0.17. Creatinine 0.9, magnesium 1.8, proBNP 5440. Patient is complaining of not feeling well and has been going on since before [place]. She complains of feeling weak and just feeling generalized malaise. Overnight, there was concern for mental status changes as patient seemed to be somewhat confused. Patient received a total of 3 doses of 0.5 mg Ativan yesterday afternoon. She was also started on IV Lasix and admitted to the selective cardiac stepdown unit and cardiology consult requested. Patient continues to be an active smoker. Echocardiogram reveals EF of 55-60% with mild concentric left ventricular hypertrophy, LA severely dilated greater than 40, mild aortic valve sclerosis, trace mitral regurgitation, mild tricuspid regurgitation Review of Systems All systems: negative Constitutional: Reports fatigue, Reports lethargy, Reports malaise, Reports weakness, Reports weight loss, Denies anorexia, Denies chills, Denies fever, Denies poor appetite Eyes: denies blurred vision, denies pain Ears, nose, mouth and throat: Denies dysphagia, Denies headache, Denies hoarseness, Denies sore throat Cardiovascular: Reports decreased exercise tolerance, Reports dyspnea on exertion, Denies chest pain, Denies edema, Denies leg edema, Denies lightheadedness, Denies shortness of breath, Denies syncope Respiratory: Reports dyspnea, Denies cough, Denies cough with sputum, Denies excessive sputum, Denies hemoptysis, Denies home oxygen, Denies wheezing Gastrointestinal: Denies abdominal pain, Denies constipation, Denies diarrhea, Denies hematemesis, Denies loss of appetite, Denies melena, Denies nausea, Denies vomiting Genitourinary: Denies dysuria, Denies hematuria, Denies urgency Musculoskeletal: Reports muscle weakness, Denies frequent falls, Denies gait dysfunction, Denies myalgias Integumentary: Denies pruritus, Denies rash, Denies wounds Neurological: Reports change in mentation, Reports confusion, Reports headaches , Denies aphasia, Denies gait dysfunction, Denies head injury, Denies numbness, Denies seizures, Denies syncope, Denies vertigo, Denies weakness Psychiatric: Denies anxiety, Denies depression Endocrine: Denies fatigue, Denies weight change Past Medical History Past Medical History: Atrial Fibrillation, COPD, CVA/TIA, Fibromyalgia, Hyperlipidemia, Hypertension, Seizure Disorder, Thyroid Disorder Additional Past Medical History / Comment(s): 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 She did see quit for short period 2013. No alcohol use, marijuana use, illicit drug use. - Past Family History Father Additional Family Medical History / Comment(s): AT AGE 96, MACULAR DEGENERATION, AFIB AT AGE 90 Mother Family Medical History: No Reported History Additional Family Medical History / Comment(s): MOM AT AGE 89-ALZHEIMERS Medications and Allergies Home Medications Medication Instructions Recorded Confirmed Type DULoxetine HCL [Cymbalta] 60 mg PO QAM 07/27/14 12/23/18 History Gabapentin [Neurontin] 600 mg PO TID 07/27/14 12/23/18 History Digoxin [Digox] 125 mcg PO QAM 09/01/14 12/23/18 History Aspirin 81 mg PO DAILY 11/29/16 12/23/18 History Budesonide/Formoterol Fumarate 2 puff INHALATION RT-BID 12/23/18 12/23/18 History [Symbicort 160-4.5 Mcg Inhaler] Dabigatran [Pradaxa] 150 mg PO BID 12/23/18 12/23/18 History Ferrous Sulfate [Feosol] 325 mg PO DAILY 12/23/18 12/23/18 History Levothyroxine Sodium [Synthroid] 50 mcg PO DAILY 12/23/18 12/23/18 History Metoprolol Tartrate [Lopressor] 25 mg PO BID 12/23/18 12/23/18 History Simvastatin [Zocor] 80 mg PO HS 12/23/18 12/23/18 History clonazePAM [KlonoPIN] 0.5 mg PO BID PRN 12/23/18 12/23/18 History Allergies Allergy/AdvReac Type Severity Reaction Status Date / Time adhesive tape Allergy Rash/ITCHIN Verified 12/23/18 12:16 G codeine Allergy Unknown Verified 12/23/18 12:16 latex Allergy Rash/Hives Verified 12/23/18 12:16 meperidine HCl [From Demerol] AdvReac Nausea & Verified 12/23/18 12:16 Vomiting,HEADACHE Physical Exam Vitals: Vital Signs Temp Pulse Pulse Resp BP BP Pulse Ox 12/24/18 04:00 97.2 F L 101 H 18 126/70 96 12/24/18 00:00 97.0 F L 76 18 89/58 96 12/23/18 20:00 97.5 F L 109 H 18 126/73 97 12/23/18 17:26 98.9 F 12/23/18 17:21 92 18 101/81 95 12/23/18 16:55 110 H 18 118/80 98 12/23/18 13:15 104 H 24 160/90 96 12/23/18 12:53 115 H 12/23/18 12:51 22 12/23/18 12:17 97 F L 81 24 120/78 92 L Intake and Output 12/23/18 12/24/18 12/24/18 22:59 06:59 14:59 Intake Total 10 Balance 10 Intake: IV 10 0.9 10 Other: Voiding Method Toilet Toilet # Voids 2 Weight 53.6 kg Gen: This is a 73-year-old female. She bed appears to be comfortable but patient is very anxious. No respiratory distress is noted. HEENT: Head is atraumatic, normocephalic. Pupils equal, round. Sclerae is anicteric. Conjunctiva pink. Mucous members of the mouth are moist. NECK: Supple. No JVD. No lymphadenopathy. No thyromegaly. LUNGS: Diminished with crackles bilaterally. No intercostal retractions. HEART: Irregularly irregular with a systolic murmur. ABDOMEN: Soft. Bowel sounds are present. No masses. No tenderness. EXTREMITIES: No pedal edema. No calf tenderness. Dorsalis pedis +2 bilaterally NEUROLOGICAL: Patient is awake, alert and oriented x3. Cranial nerves 2 through 12 are grossly intact. Results CBC & Chem 7: 12/23/18 13:10 12/23/18 13:10 Labs: Abnormal Lab Results - Last 24 Hours (Table) 12/23/18 12/23/18 12/23/18 Range/Units 13:10 13:10 13:10 RBC 5.63 H (3.80-5.40) m/uL Hgb 16.4 H (11.4-16.0) gm/dL Hct 48.4 H (34.0-46.0) % Plt Count 136 L (150-450) k/uL Lymphocytes # 0.7 L (1.0-4.8) k/uL Total Bilirubin 1.6 H (0.2-1.3) mg/dL Total Creatine Kinase 24 L (30-135) U/L CK-MB (CK-2) 3.2 H (0.0-2.4) ng/mL Troponin I 0.044 H* (0.000-0.034) ng/mL Total Protein 5.8 L (6.3-8.2) g/dL Albumin 3.3 L (3.5-5.0) g/dL Thrombosis Risk Factor Assmnt - DVT/VTE Prophylaxis DVT/VTE Prophylaxis: Pharmacologic Prophylaxis ordered - Choose All That Apply Each Factor Represents 1 point: Abnormal pulmonary function (COPD) Each Risk Factor Represents 2 Points: Age 61-74 years Thrombosis Risk Factor Assessment Total Risk Factor Score: 3 Thrombosis Risk Factor Assessment Level: Moderate Risk Assessment and Plan Plan: 1. Acute diastolic heart failure. Continue Lasix 40 mg IV daily, I&O and daily weights, cardiology consult appreciated. Cardiology is increased Lopressor to 25 mg twice daily. 2. Abnormal troponin. Repeat ordered. Echocardiogram as above. Cardiology on consult. 3. Chronic atrial fibrillation. Continue Pradaxa 150 mg twice daily, digoxin 125 g daily, aspirin 81 mg daily, Lopressor increased to 50 mg twice daily. Cardiology consult appreciated. 4. Known history of epilepsy. Continue gabapentin 600 mg 3 times daily. 5. Hypertension. Continue Lopressor. 6. Hyperlipidemia. Continue simvastatin 80 mg at bedtime. 7. Neuropathy. Continue gabapentin 600 mg orally tid. 8. Hypothyroidism. Continue Synthroid 50 g daily. TSH 1.910. 9. COPD. Continue Symbicort twice daily and DuoNeb treatments as needed. 10. Recent weight loss with COPD, active tobacco use. CAT scan of the chest ordered. 11. Metabolic encephalopathy with mild confusion of unclear etiology. . DVT prophylaxis .David hose knee-high and heparin 5000 units sc q 12 hour post surgery. 12. generalized anxiety disorder. Continue Cymbalta 60 mg daily, gabapentin 600 mg 3 times daily. 13. GI prophylaxis. Pepcid. Patient will be admitted to the hospital for a minimum of 2 night stay. Discharge plan: To be determined. PT requested. Impression and plan of care have been directed as dictated by the signing physician. Re Saeed nurse practitioner acting as scribe for signing physician.
--- NOTE | 2018-12-24 13:01 | CT ---
EXAMINATION TYPE: CT chest w con DATE OF EXAM: 12/24/2018 COMPARISON: Chest radiograph of 12/23/[address] thorax dated 01/23/2012. Mild left basilar peribronch ial cuffing is noted. HISTORY: Unexplained weight loss CT DLP: 404.6 mGycm. Automated Exposure Control for Dose Reduction was Utilized. TECHNIQUE: CT scan of the thorax is performed following with IV Contrast, patient injected with 100 mL of Isovue 300. FINDINGS: LUNGS: There is mild to moderate paraseptal and centrilobular emphysema. There are scattered 1 to 2 m m subpleural pulmonary nodule such as on image 10 and 12 on the right. 3 mm solid pulmonary nodule is seen within the right upper lobe laterally on image 26. 3 mm pulmonary nodules also seen within the right middle lobe on image 38. Pleural parenchymal scarring is seen in the left lower lobe in the loc ation of prior consolidation on the exam of 2011. There is no pleural effusion or pneumothorax seen. The tracheobronchial tree is patent. MEDIASTINUM: There are no greater than 1 cm hilar or mediastinal lymph nodes. There is enlargement of the main pulmonary artery measuring 3.2 cm. Mild coronary artery calcifications are seen. Moderate a therosclerosis is seen of the thoracic aorta and its branches. Heart is mildly enlarged. No pericard ial effusion is seen. OTHER: There is a small hiatal hernia present. Gastric antral rugal fold thickening could relate to g astritis, infiltrative neoplasm or peristalsis. Mild multilevel degenerative changes of the spine are noted. IMPRESSION: 1. Gastric antral rugal fold thickening could relate to gastritis, infiltrating neoplasm or peristals is. Endoscopy could further evaluate this finding. 2. Main pulmonary arterial enlargement suggesting underlying pulmonary detail hypertension. 3. Sub-3 mm pulmonary nodules for which follow-up CT thorax in 12 months is recommended to ensure sta bility. 4. Mild to moderate emphysematous change.
[2018-12-24] MEDS: ATORVASTATIN 40 MG TAB PO SCH (21:31)
[2018-12-24] MEDS: METOPROLOL TARTRATE 50 MG TAB PO SCH (21:31)
[2018-12-25] MEDS: IPRATROPIUM-ALBUTEROL 3 ML NEB INHALATION PRN ×3 (02:09→20:28)
[2018-12-25] MEDS: SYMBICORT 160-4.5 MCG INHALER INHALATION SCH ×2 (07:50→20:28)
[2018-12-25] MEDS: DULoxetine HCL 60 MG CAPSULE.DR PO SCH (08:12)
[2018-12-25] MEDS: FERROUS SULFATE 325 MG TAB PO SCH (08:12)
[2018-12-25] MEDS: FUROSEMIDE 10 MG/ML 4 ML VIAL IV SCH (08:12)
[2018-12-25] MEDS: GABAPENTIN 300 MG CAP PO SCH ×3 (08:12→21:43)
[2018-12-25] MEDS: ASPIRIN 81 MG PO SCH (08:12)
[2018-12-25] MEDS: DIGOXIN 125 MCG TAB PO SCH (08:12)
[2018-12-25] MEDS: LEVOTHYROXINE 50 MCG TAB PO SCH (08:12)
[2018-12-25] MEDS: METOPROLOL TARTRATE 50 MG TAB PO SCH ×2 (08:12→21:43)
[2018-12-25] MEDS: DABIGATRAN 150 MG CAP PO SCH ×2 (08:12→21:43)
[2018-12-25] MEDS ORDERED: FAMOTIDINE 20 MG TAB PO SCH (09:00)
--- NOTE | 2018-12-25 09:33 | P.PN ---
Subjective Progress Note Date: 12/25/18 Principal diagnosis: Chronic persistent atrial fibrillation This is a pleasant 73-year-old female patient with a past medical history significant for chronic persistent atrial fibrillation on oral anticoagulation as well as history of congestive heart failure secondary to diastolic dysfunction was admitted to the hospital with CHF exacerbation as well as atrial fibrillation with RVR. The echo revealed normal LV function with mild aortic stenosis. On follow-up with her today, 12/25/2018, she is feeling definitely better. Hemodynamically she continues to be in atrial fibrillation was relatively controlled heart rate. No chest pain or chest discomfort. She continues to be on Lasix IV at 40 mg daily. Severe underlying coronary artery disease to be ruled out probably as an outpatient. The patient did have a heart catheterization in 2013 and that revealed mild nonobstructive coronary artery disease. Objective - Vital Signs Vital signs: Vital Signs Temp 98 F 12/25/18 08:05 Pulse 103 H 12/25/18 08:05 Resp 16 12/25/18 08:05 BP 107/61 12/25/18 08:05 Pulse Ox 99 12/25/18 08:05 Intake & Output 12/24/18 12/25/18 12/25/18 18:59 06:59 18:59 Intake Total 360 20 Balance 360 20 Weight 53.6 kg 54.6 kg Intake: IV 20 0.9 20 Oral 360 Other: Voiding Method Toilet Toilet # Voids 1 1 # Bowel Movements 1 - Constitutional General appearance: Present: no acute distress - Respiratory Respiratory: bilateral: CTA - Cardiovascular Rhythm: irregularly irregular Heart sounds: normal: S1, S2 Abnormal Heart Sounds: Present: systolic murmur - Labs CBC & Chem 7: 12/23/18 13:10 12/23/18 13:10 Labs: Abnormal Lab Results - Last 24 Hours (Table) 12/24/18 12/24/18 Range/Units 09:07 14:57 Troponin I 0.055 H* 0.058 H* (0.000-0.034) ng/mL Microbiology - Last 24 Hours (Table) 12/23/18 13:10 Blood Culture - Preliminary Blood No Growth after 24 hours Assessment and Plan Assessment: Assessment #1 congestive heart failure exacerbation secondary to diastole dysfunction #2 chronic persistent atrial fibrillation #3 multiple comorbid conditions Plan #1 I would suggest continue IV Lasix for additional 24 hours #2 continue monitor the kidney function and electrolytes #3 follow-up with the patient
--- NOTE | 2018-12-25 13:44 | P.PN ---
Subjective Progress Note Date: 12/25/18 This is a 73-year-old female patient of Dr Jones, Dr. Rasmussen, Dr. Littlejohn. She has underlying history of epilepsy, neurofibromatosis, COPD, CAD, chronic atrial fibrillation on Pradaxa, hypertension, hyperlipidemia, active tobacco use and dependence, hypothyroidism. Patient gives history that she was having a hard time breathing was at Dr. Jones's office and was sent here. Patient apparently was also seen last week and was started on antibiotic. Patient complains of significant difficulty breathing especially with activity. She denies any phlegm production. She denies history of CHF. She denies any fluid or weight gain. She states she has had a weight loss of 10 pounds over the past 10 weeks but has been eating adequately. She denies any blood in her stools. She is sleeping with one pillow. Patient came into [facility] emergency center for evaluation chest x-ray shows cardiomegaly, pulmonary artery hypertension, possible underlying COPD. Correlate for mild pulmonary vascular congestion. Initial blood pressure 120/70, heart rate in the 80s. EKG was atrial fibrillation. Pulse ox 92% on room air. White count 9, hemoglobin 16.4, d-dimer was 0.17. Creatinine 0.9, magnesium 1.8, proBNP 5440. Patient is complaining of not feeling well and has been going on since before [place]. She complains of feeling weak and just feeling generalized malaise. Overnight, there was concern for mental status changes as patient seemed to be somewhat confused. Patient received a total of 3 doses of 0.5 mg Ativan yesterday afternoon. She was also started on IV Lasix and admitted to the selective cardiac stepdown unit and cardiology consult requested. Patient continues to be an active smoker. Echocardiogram reveals EF of 55-60% with mild concentric left ventricular hypertrophy, LA severely dilated greater than 40, mild aortic valve sclerosis, trace mitral regurgitation, mild tricuspid regurgitation 12/25: CAT scan of the chest showed gastric antral route go full thickening could relate to gastritis, filtrating neoplasm or peristalsis. Endoscopy could further evaluate this finding. Main pulmonary artery enlargement suggesting underlying pulmonary hypertension. 3 mm pulmonary nodules with recommendations for follow-up in 12 months. [id number] emphysematous change. Repeat troponins came back 0.055 and 0.058. The patient states that she is feeling much better today. She was able to ambulate in the hallway without oxygen and pulse ox only dropped down to 92%. Patient's breathing is improved. Her mental status is improved and back to baseline. Patient called her daughter while in the room and she has been updated on CAT scan report, plan and recommendations. Patient will be set up for follow-up as an outpatient with Dr. Chavez for EGD. Dr. Rasmussne would like to continue Lasix IV 40 mg daily for 1 more day. Anticipate discharge home tomorrow. Review of Systems All systems: negative Constitutional: Reports fatigue, Reports lethargy, Reports malaise, Reports weakness, Reports weight loss, Denies anorexia, Denies chills, Denies fever, Denies poor appetite Eyes: denies blurred vision, denies pain Ears, nose, mouth and throat: Denies dysphagia, Denies headache, Denies hoarseness, Denies sore throat Cardiovascular: Reports decreased exercise tolerance, Reports dyspnea on exertion, Denies chest pain, Denies edema, Denies leg edema, Denies lightheadedness, Denies shortness of breath, Denies syncope Respiratory: Reports dyspnea, Denies cough, Denies cough with sputum, Denies excessive sputum, Denies hemoptysis, Denies home oxygen, Denies wheezing Gastrointestinal: Denies abdominal pain, Denies constipation, Denies diarrhea, Denies hematemesis, Denies loss of appetite, Denies melena, Denies nausea, Denies vomiting Genitourinary: Denies dysuria, Denies hematuria, Denies urgency Musculoskeletal: Reports muscle weakness, Denies frequent falls, Denies gait dysfunction, Denies myalgias Integumentary: Denies pruritus, Denies rash, Denies wounds Neurological: Denies change in mentation, denies confusion, denies headaches, Denies aphasia, Denies gait dysfunction, Denies head injury, Denies numbness, Denies seizures, Denies syncope, Denies vertigo, Denies weakness Psychiatric: Denies anxiety, Denies depression Endocrine: Denies fatigue, Denies weight change Objective - Vital Signs Vital signs: Vital Signs Temp 98 F 12/25/18 08:05 Pulse 103 H 12/25/18 08:05 Resp 16 12/25/18 08:05 BP 107/61 12/25/18 08:05 Pulse Ox 99 12/25/18 08:05 Intake & Output 12/24/18 12/25/18 12/25/18 18:59 06:59 18:59 Intake Total 360 20 Balance 360 20 Weight 53.6 kg 54.6 kg Intake: IV 20 0.9 20 Oral 360 Other: Voiding Method Toilet Toilet # Voids 1 1 # Bowel Movements 1 - Exam Gen: This is a 73-year-old female. She bed appears to be comfortable. No respiratory distress is noted. HEENT: Head is atraumatic, normocephalic. Pupils equal, round. Sclerae is anicteric. Conjunctiva pink. Mucous members of the mouth are moist. NECK: Supple. No JVD. No lymphadenopathy. No thyromegaly. LUNGS: Diminished with crackles bilaterally. No intercostal retractions. HEART: Irregularly irregular with a systolic murmur. ABDOMEN: Soft. Bowel sounds are present. No masses. No tenderness. EXTREMITIES: No pedal edema. No calf tenderness. Dorsalis pedis +2 bilaterally NEUROLOGICAL: Patient is awake, alert and oriented x3. Cranial nerves 2 through 12 are grossly intact. - Labs CBC & Chem 7: 12/23/18 13:10 12/23/18 13:10 Labs: Abnormal Lab Results - Last 24 Hours (Table) 12/24/18 12/24/18 Range/Units 09:07 14:57 Troponin I 0.055 H* 0.058 H* (0.000-0.034) ng/mL Microbiology - Last 24 Hours (Table) 12/23/18 13:10 Blood Culture - Preliminary Blood No Growth after 24 hours Assessment and Plan Plan: 1. Acute diastolic heart failure. Continue Lasix 40 mg IV daily, I&O and daily weights, cardiology consult appreciated. Cardiology has increased Lopressor to 25 mg twice daily. 2. Abnormal troponin. Repeat ordered. Echocardiogram as above. Cardiology on consult. 3. Chronic atrial fibrillation. Continue Pradaxa 150 mg twice daily, digoxin 125 g daily, aspirin 81 mg daily, Lopressor increased to 50 mg twice daily. Cardiology consult appreciated. 4. Known history of epilepsy. Continue gabapentin 600 mg 3 times daily. 5. Hypertension. Continue Lopressor. 6. Hyperlipidemia. Continue simvastatin 80 mg at bedtime. 7. Neuropathy. Continue gabapentin 600 mg orally tid. 8. Hypothyroidism. Continue Synthroid 50 g daily. TSH 1.910. 9. COPD. Continue Symbicort twice daily and DuoNeb treatments as needed. 10. Recent weight loss with COPD, active tobacco use. CAT scan of the chest ordered. 11. Metabolic encephalopathy with mild confusion of unclear etiology. . DVT prophylaxis .David hose knee-high and heparin 5000 units sc q 12 hour post surgery. 12. generalized anxiety disorder. Continue Cymbalta 60 mg daily, gabapentin 600 mg 3 times daily. 13. GI prophylaxis. Pepcid. Discharge plan: Home on Friday Impression and plan of care have been directed as dictated by the signing physician. Re Saeed nurse practitioner acting as scribe for signing physician.
[2018-12-25] MEDS: ACETAMINOPHEN TAB 325 MG TAB PO PRN ×2 (15:18→20:02)
[2018-12-25] MEDS: ATORVASTATIN 40 MG TAB PO SCH (21:43)
[2018-12-26 02:32] VITALS: RESP 18
[2018-12-26] MEDS: LEVOTHYROXINE 50 MCG TAB PO SCH (06:54)
[2018-12-26 07:19] LABS: HCT 49.7 % (34.0-46.0); HGB 16.7 gm/dL (11.4-16.0); MCH 29.8 pg (25.0-35.0); MCHC 33.7 g/dL (31.0-37.0); MCV 88.3 fL (80.0-100.0); Mean Platelet Volume 7.1; Platelet Count 151 k/uL (150-450); RBC 5.62 m/uL (3.80-5.40); WBC 9.1 k/uL (3.8-10.6)
[2018-12-26] MEDS ORDERED: PANTOPRAZOLE 40 MG TABLET PO SCH (07:30)
[2018-12-26 07:32] LABS: Albumin 3.5 g/dL (3.5-5.0); Calcium 9.5 mg/dL (8.4-10.2); Potassium 4.2 mmol/L (3.5-5.1); Total Bilirubin 0.9 mg/dL (0.2-1.3); Total Protein 5.8 g/dL (6.3-8.2)
[2018-12-26] MEDS: IPRATROPIUM-ALBUTEROL 3 ML NEB INHALATION PRN (08:01)
[2018-12-26] MEDS: SYMBICORT 160-4.5 MCG INHALER INHALATION SCH (08:01)
[2018-12-26] MEDS: GABAPENTIN 300 MG CAP PO SCH (08:24)
[2018-12-26] MEDS: METOPROLOL TARTRATE 50 MG TAB PO SCH (08:24)
[2018-12-26] MEDS: DABIGATRAN 150 MG CAP PO SCH (08:24)
[2018-12-26] MEDS: FERROUS SULFATE 325 MG TAB PO SCH (08:25)
[2018-12-26] MEDS: DULoxetine HCL 60 MG CAPSULE.DR PO SCH (08:25)
[2018-12-26] MEDS: DIGOXIN 125 MCG TAB PO SCH (08:25)
[2018-12-26] MEDS: ASPIRIN 81 MG PO SCH (08:25)
[2018-12-26] MEDS: FUROSEMIDE 10 MG/ML 4 ML VIAL IV SCH (08:25)
[2018-12-26 11:44] VITALS: BP 147/91; PULSE 75; TEMP 97.8
[2018-12-26 11:56] LABS: Glucose,Whole Blood 98 mg/dL (75-99)
--- NOTE | 2018-12-26 18:46 | PN ---
PROGRESS NOTE INTERVAL HISTORY: This is a pleasant 73-year-old female patient with a past medical history significant for chronic obstructive pulmonary disease, diastolic heart failure with preserved LV function, as well as chronic persistent atrial fibrillation, who was admitted to the hospital with acute exacerbation of congestive heart failure secondary to diastolic dysfunction as well as atrial fibrillation with RVR. The patient does have mild nonobstructive coronary artery disease based on heart catheterization that was performed in 2013. On follow up with her today, she is feeling better in terms of shortness of breath. No chest pain or chest discomfort. The atrial fibrillation seems to be under good control. From the cardiovascular standpoint of view, the patient can be discharged home. MMODL / IJN: [id number] /
--- NOTE | 2018-12-27 16:19 | P.DS ---
Providers Date of admission: 12/24/18 14:06 Attending physician: Raghu Mcmullen MD Consults: 12/23/18 15:23 Consult Physician Routine Consulting Provider: [facility] Consult Reason/Comments: Acute pulmonary edema Do you want consulting provider notified?: Yes [facility] Course: This is a 73-year-old female patient of Dr Jones, Dr. Rasmussen, Dr. Littlejohn. She has underlying history of epilepsy, neurofibromatosis, COPD, CAD, chronic atrial fibrillation on Pradaxa, hypertension, hyperlipidemia, active tobacco use and dependence, hypothyroidism. Patient gives history that she was having a hard time breathing was at Dr. Jones's office and was sent here. Patient apparently was also seen last week and was started on antibiotic. Patient complains of significant difficulty breathing especially with activity. She denies any phlegm production. She denies history of CHF. She denies any fluid or weight gain. She states she has had a weight loss of 10 pounds over the past 10 weeks but has been eating adequately. She denies any blood in her stools. She is sleeping with one pillow. Patient came into [facility] emergency center for evaluation chest x-ray shows cardiomegaly, pulmonary artery hypertension, possible underlying COPD. Correlate for mild pulmonary vascular congestion. Initial blood pressure 120/70, heart rate in the 80s. EKG was atrial fibrillation. Pulse ox 92% on room air. White count 9, hemoglobin 16.4, d-dimer was 0.17. Creatinine 0.9, magnesium 1.8, proBNP 5440. Patient is complaining of not feeling well and has been going on since before [place]. She complains of feeling weak and just feeling generalized malaise. Overnight, there was concern for mental status changes as patient seemed to be somewhat confused. Patient received a total of 3 doses of 0.5 mg Ativan yesterday afternoon. She was also started on IV Lasix and admitted to the selective cardiac stepdown unit and cardiology consult requested. Patient continues to be an active smoker. Echocardiogram reveals EF of 55-60% with mild concentric left ventricular hypertrophy, LA severely dilated greater than 40, mild aortic valve sclerosis, trace mitral regurgitation, mild tricuspid regurgitation 12/25: CAT scan of the chest showed gastric antral route go full thickening could relate to gastritis, filtrating neoplasm or peristalsis. Endoscopy could further evaluate this finding. Main pulmonary artery enlargement suggesting underlying pulmonary hypertension. 3 mm pulmonary nodules with recommendations for follow-up in 12 months. [id number] emphysematous change. Repeat troponins came back 0.055 and 0.058. The patient states that she is feeling much better today. She was able to ambulate in the hallway without oxygen and pulse ox only dropped down to 92%. Patient's breathing is improved. Her mental status is improved and back to baseline. Patient called her daughter while in the room and she has been updated on CAT scan report, plan and recommendations. Patient will be set up for follow-up as an outpatient with Dr. Chavez for EGD. Dr. Rasmussen would like to continue Lasix IV 40 mg daily for 1 more day. Anticipate discharge home tomorrow. - Vital Signs Vital signs: Vital Signs Temp 98 F 12/25/18 08:05 Pulse 103 H 12/25/18 08:05 Resp 16 12/25/18 08:05 BP 107/61 12/25/18 08:05 Pulse Ox 99 12/25/18 08:05 Intake & Output 12/24/18 12/25/18 12/25/18 18:59 06:59 18:59 Intake Total 360 20 Balance 360 20 Weight 53.6 kg 54.6 kg Intake: IV 20 0.9 20 Oral 360 Other: Voiding Method Toilet Toilet # Voids 1 1 # Bowel Movements 1 - Exam Gen: This is a 73-year-old female. She bed appears to be comfortable. No respiratory distress is noted. HEENT: Head is atraumatic, normocephalic. Pupils equal, round. Sclerae is anicteric. Conjunctiva pink. Mucous members of the mouth are moist. NECK: Supple. No JVD. No lymphadenopathy. No thyromegaly. LUNGS: Diminished with crackles bilaterally. No intercostal retractions. HEART: Irregularly irregular with a systolic murmur. ABDOMEN: Soft. Bowel sounds are present. No masses. No tenderness. EXTREMITIES: No pedal edema. No calf tenderness. Dorsalis pedis +2 bilaterally NEUROLOGICAL: Patient is awake, alert and oriented x3. Cranial nerves 2 through 12 are grossly intact. Assessment and Plan Plan: 1. Acute diastolic heart failure. Continue Lasix 40 mg IV daily, I&O and daily weights, cardiology consult appreciated. Cardiology has increased Lopressor to 25 mg twice daily. 2. Abnormal troponin. Repeat ordered. Echocardiogram as above. Cardiology on consult. 3. Chronic atrial fibrillation. Continue Pradaxa 150 mg twice daily, digoxin 125 g daily, aspirin 81 mg daily, Lopressor increased to 50 mg twice daily. Cardiology consult appreciated. 4. Known history of epilepsy. Continue gabapentin 600 mg 3 times daily. 5. Hypertension. Continue Lopressor. 6. Hyperlipidemia. Continue simvastatin 80 mg at bedtime. 7. Neuropathy. Continue gabapentin 600 mg orally tid. 8. Hypothyroidism. Continue Synthroid 50 g daily. TSH 1.910. 9. COPD. Continue Symbicort twice daily and DuoNeb treatments as needed. 10. Recent weight loss with COPD, active tobacco use. CAT scan of the chest ordered. 11. Metabolic encephalopathy with mild confusion of unclear etiology. . DVT prophylaxis .David hose knee-high and heparin 5000 units sc q 12 hour post surgery. 12. generalized anxiety disorder. Continue Cymbalta 60 mg daily, gabapentin 600 mg 3 times daily. Patient was clear to be discharged by cardiology, had the same impression patient might have existing coronary artery disease might require further management intervention including heart cath as an outpatient should because there are patient be seen cardiology as outpatient and planted within the next 2 weeks. Plan - Discharge Summary Discharge Rx Participant: No New Discharge Prescriptions: New Pantoprazole Sodium [Protonix] 40 mg PO DAILY #30 tablet. Metoprolol Tartrate [Lopressor] 50 mg PO BID #60 tab Continue Gabapentin [Neurontin] 600 mg PO TID DULoxetine HCL [Cymbalta] 60 mg PO QAM Digoxin [Digox] 125 mcg PO QAM Aspirin 81 mg PO DAILY Budesonide/Formoterol Fumarate [Symbicort 160-4.5 Mcg Inhaler] 2 puff INHALATION RT-BID clonazePAM [KlonoPIN] 0.5 mg PO BID PRN PRN Reason: Anxiety Dabigatran [Pradaxa] 150 mg PO BID Ferrous Sulfate [Iron (65 MG Elemental)] 325 mg PO DAILY Levothyroxine Sodium [Synthroid] 50 mcg PO DAILY Simvastatin [Zocor] 80 mg PO HS Discontinued Metoprolol Tartrate [Lopressor] 25 mg PO BID Discharge Medication List DULoxetine HCL [Cymbalta] 60 mg PO QAM 07/27/14 [History] Gabapentin [Neurontin] 600 mg PO TID 07/27/14 [History] Digoxin [Digox] 125 mcg PO QAM 09/01/14 [History] Aspirin 81 mg PO DAILY 11/29/16 [History] Budesonide/Formoterol Fumarate [Symbicort 160-4.5 Mcg Inhaler] 2 puff INHALATION RT-BID 12/23/18 [History] Dabigatran [Pradaxa] 150 mg PO BID 12/23/18 [History] Ferrous Sulfate [Iron (65 MG Elemental)] 325 mg PO DAILY 12/23/18 [History] Levothyroxine Sodium [Synthroid] 50 mcg PO DAILY 12/23/18 [History] Simvastatin [Zocor] 80 mg PO HS 12/23/18 [History] clonazePAM [KlonoPIN] 0.5 mg PO BID PRN 12/23/18 [History] Pantoprazole Sodium [Protonix] 40 mg PO DAILY #30 tablet.dr 12/25/18 [Rx] Metoprolol Tartrate [Lopressor] 50 mg PO BID #60 tab 12/26/18 [Rx] Follow up Appointment(s)/Referral(s): [facility] [Provider Group] - 1 Week Rafy Jones MD [Primary Care Provider] - 1 Week Corazon Beebe MD [STAFF PHYSICIAN] - 3 Weeks (EGD) Patient Instructions/Handouts: Pulmonary Edema (DC), Heart Healthy Diet (DC) Discharge Disposition: HOME SELF-CARE
== END 2018-12-26 18:45 | disposition home or self-care (01) | DRG 291 ==
LOC: EC 12:14 → 3SCARD 15:27 → OBSVTOIN 12-24 14:06
PROVIDERS: ADMIT Internal Medicine; ATTEND Internal Medicine
DX: I11.0 Hypertensive heart disease with heart failure (principal); G93.41 Metabolic encephalopathy; I48.1 Persistent atrial fibrillation; I50.33 Acute on chronic diastolic (congestive) heart failure; G62.9 Polyneuropathy, unspecified; I27.21 Secondary pulmonary arterial hypertension; J44.9 Chronic obstructive pulmonary disease, unspecified; I08.2 Rheumatic disorders of both aortic and tricuspid valves; G40.909 Epilepsy, unspecified, not intractable, without status epilepticus; Z79.01 Long term (current) use of anticoagulants; E03.9 Hypothyroidism, unspecified; E78.5 Hyperlipidemia, unspecified; F17.200 Nicotine dependence, unspecified, uncomplicated; F41.1 Generalized anxiety disorder; I25.10 Atherosclerotic heart disease of native coronary artery without angina pectoris; M79.7 Fibromyalgia; Q85.00 Neurofibromatosis, unspecified; F32.9 Major depressive disorder, single episode, unspecified; R77.9 Abnormality of plasma protein, unspecified; R63.4 Abnormal weight loss; R91.8 Other nonspecific abnormal finding of lung field; Z79.02 Long term (current) use of antithrombotics/antiplatelets; Z79.51 Long term (current) use of inhaled steroids; Z79.82 Long term (current) use of aspirin; Z79.890 Hormone replacement therapy; Z79.899 Other long term (current) drug therapy; Z90.710 Acquired absence of both cervix and uterus; Z90.49 Acquired absence of other specified parts of digestive tract; Z87.440 Personal history of urinary (tract) infections; Z86.73 Personal history of transient ischemic attack (TIA), and cerebral infarction without residual deficits; Z91.040 Latex allergy status; Z88.5 Allergy status to narcotic agent; Z91.048 Other nonmedicinal substance allergy status; Z82.49 Family history of ischemic heart disease and other diseases of the circulatory system; Z83.518 Family history of other specified eye disorder; Z82.0 Family history of epilepsy and other diseases of the nervous system; Z98.42 Cataract extraction status, left eye; Z98.41 Cataract extraction status, right eye; Z96.1 Presence of intraocular lens
CPT/HCPCS: 36415; 71046; 71260; 80053; 82550; 82553; 83735; 83880; 84443; 84484; 85025; 85027; 85379; 85610; 85730; 87040; 93005; 93306; 94640; 94760; 96374; 96375; 96376; 99291

== ENCOUNTER 2018-12-28 16:02 | Emergency (ER) | payer MEDICARE ==
--- NOTE | 2018-12-28 16:22 | ED ---
General Adult HPI - General Chief complaint: Shortness of Breath Stated complaint: Sob Time Seen by Provider: 12/28/18 16:22 Source: patient Mode of arrival: wheelchair Limitations: no limitations - Related Data Home Medications Medication Instructions Recorded Confirmed DULoxetine HCL [Cymbalta] 60 mg PO QAM 07/27/14 12/28/18 Gabapentin [Neurontin] 600 mg PO TID 07/27/14 12/28/18 Digoxin [Digox] 125 mcg PO QAM 09/01/14 12/28/18 Aspirin 81 mg PO DAILY 11/29/16 12/28/18 Budesonide/Formoterol Fumarate 2 puff INHALATION RT-BID 12/23/18 12/28/18 [Symbicort 160-4.5 Mcg Inhaler] Dabigatran [Pradaxa] 150 mg PO BID 12/23/18 12/28/18 Ferrous Sulfate [Iron (65 MG 325 mg PO DAILY 12/23/18 12/28/18 Elemental)] Levothyroxine Sodium [Synthroid] 50 mcg PO DAILY 12/23/18 12/28/18 Simvastatin [Zocor] 80 mg PO HS 12/23/18 12/28/18 clonazePAM [KlonoPIN] 0.5 mg PO BID PRN 12/23/18 12/28/18 Furosemide [Lasix] 40 mg PO BID 12/28/18 12/28/18 Previous Rx's Medication Instructions Recorded Pantoprazole Sodium [Protonix] 40 mg PO DAILY #30 tablet. 12/25/18 Metoprolol Tartrate [Lopressor] 50 mg PO BID #60 tab 12/26/18 Allergies Allergy/AdvReac Type Severity Reaction Status Date / Time adhesive tape Allergy Rash/ITCHIN Verified 12/28/18 17:15 G codeine Allergy Unknown Verified 12/28/18 17:15 latex Allergy Rash/Hives Verified 12/28/18 17:15 meperidine HCl [From Demerol] AdvReac Nausea & Verified 12/28/18 17:15 Vomiting,HEADACHE Review of Systems ROS Statement: Those systems with pertinent positive or pertinent negative responses have been documented in the HPI. ROS Other: All systems not noted in ROS Statement are negative. 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, neuropathy, neurofibromatosis, past uti-ecoloi 2015, stress test 2013 History of Any Multi-Drug Resistant Organisms: None Reported Past Surgical History: Cholecystectomy, Heart Catheterization, Hysterectomy Additional Past Surgical History / Comment(s): HILDA CATARACT, cardioversion 2013 , lap cholecystectomy 2015 Past Anesthesia/Blood Transfusion Reactions: No Reported Reaction Past Psychological History: Anxiety, Depression Smoking Status: Former smoker Past Alcohol Use History: None Reported Past Drug Use History: None Reported - Past Family History Father Additional Family Medical History / Comment(s): AT AGE 96, MACULAR DEGENERATION, AFIB AT AGE 90 Mother Family Medical History: No Reported History Additional Family Medical History / Comment(s): MOM AT AGE 89-ALZHEIMERS General Exam Limitations: no limitations Course Vital Signs 12/28/18 12/28/18 12/28/18 16:04 16:37 16:39 Temperature 97.8 F Pulse Rate 89 Respiratory 18 22 Rate Blood Pressure 134/101 O2 Sat by Pulse 88 L 95 Oximetry Medical Decision Making - Medical Decision Making Dictation was produced using [employer] dictation software. please excuse any grammatical, word or spelling errors. Chief Complaint: 73-year-old female past medical history of diastolic heart failure, neurofibromatosis, COPD presents with dyspnea. History of Present Illness: Patient is 70-year-old female. She presents here today for dyspnea. Patient was recently admitted to the hospital and just discharge 3 days ago. Patient states that her shortness of breath hasn't fully resolved. She was admitted for approximately 4 days were she was worked up for elevated troponin, dyspnea. Patient had echocardiogram performed showing good ejection fraction. There was concerns of diastolic heart failure. Patient had elevated brain and PEEP. Patient was diuresed gently. According to note patient was feeling better and not hypoxic with ambulation. She was discharged home. Patient states that her shortness of breath is worse with exertion. Denies any productive cough. No cough. Patient is a poor historian. The ROS documented in this emergency department record has been reviewed and confirmed by me. Those systems with pertinent positive or negative responses have been documented in the HPI. All other systems are other negative and/or noncontributory. PHYSICAL EXAM: General Impression: Alert and oriented x3, not in acute distress HEENT: Normocephalic atraumatic, extra-ocular movements intact, pupils equal and reactive to light bilaterally, mucous membranes moist. Cardiovascular: Heart regular rate and rhythm, S1&S2 audible, no murmurs, rubs or gallops Chest: Lungs clear to auscultation bilaterally, no rhonchi, no wheeze, no rales Abdomen: Bowel sounds present, abdomen soft, non-tender, non-distended, no organomegaly Musculoskeletal: Pulses present and equal in all extremities, no peripheral edema Motor: Power 5/5 bilaterally, no focal deficits noted Neurological: CN II-XII grossly intact, no focal motor or sensory deficits noted Skin: Multiple skin masses consistent with patient's history of neurofibromatosis. Psych: Normal affect and mood ED course: 73-year-old female presents chief complaint of dyspnea. She was recently admitted and discharged 2-3 days ago. Patient was inpatient for 4 days. She is value by cardiology. She had echocardiogram performed. Vital signs upon arrival shows 88 on room air. This is likely an error. Rest of vital signs within acceptable limits. Patient not showing signs of increased work of breathing. Patient case was discussed in depth with Dr. Jones patient' s primary care physician. He reports that patient has a long-standing history of this. He believes this is secondary to anxiety. She had multiple extensive workups without any significant findings to suggest the cause for her symptoms. He believes that patient's workup does not need to be repeated. He states he will follow up with her outpatient. 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 She does have outpatient follow-up with cardiology for likely cardiac catheterization for elevated troponin. Patient appears well. She is not showing any signs of respiratory distress. Patient vital signs stable. She is not hypoxic. Patient clear for discharge. - Lab Data Result diagrams: 12/28/18 17:07 12/28/18 17:07 Lab Results 12/28/18 12/28/18 12/28/18 Range/Units 17:07 17:07 17:07 WBC 7.4 (3.8-10.6) k/uL RBC 6.01 H (3.80-5.40) m/uL Hgb 17.7 H (11.4-16.0) gm/dL Hct 51.1 H (34.0-46.0) % MCV 85.1 (80.0-100.0) fL MCH 29.5 (25.0-35.0) pg MCHC 34.6 (31.0-37.0) g/dL RDW 14.0 (11.5-15.5) % Plt Count 189 (150-450) k/uL Neutrophils % 78 % Lymphocytes % 13 % Monocytes % 5 % Eosinophils % 1 % Basophils % 1 % Neutrophils # 5.7 (1.3-7.7) k/uL Lymphocytes # 1.0 (1.0-4.8) k/uL Monocytes # 0.4 (0-1.0) k/uL Eosinophils # 0.1 (0-0.7) k/uL Basophils # 0.1 (0-0.2) k/uL PT (9.0-12.0) sec INR (<1.2) APTT (22.0-30.0) sec Sodium 135 L (137-145) mmol/L Potassium 4.5 (3.5-5.1) mmol/L Chloride 95 L (98-107) mmol/L Carbon Dioxide 28 (22-30) mmol/L Anion Gap 12 mmol/L BUN 33 H (7-17) mg/dL Creatinine 1.14 H (0.52-1.04) mg/dL Est GFR (CKD-EPI)AfAm 55 (>60 ml/min/1.73 sqM) Est GFR (CKD-EPI)NonAf 48 (>60 ml/min/1.73 sqM) Glucose 107 H (74-99) mg/dL Calcium 10.0 (8.4-10.2) mg/dL Magnesium 1.9 (1.6-2.3) mg/dL Total Bilirubin 2.1 H (0.2-1.3) mg/dL AST 18 (14-36) U/L ALT 24 (9-52) U/L Alkaline Phosphatase 69 (38-126) U/L Total Creatine Kinase 25 L (30-135) U/L CK-MB (CK-2) 2.9 H (0.0-2.4) ng/mL CK-MB (CK-2) Rel Index 11.6 Troponin I 0.034 (0.000-0.034) ng/mL Total Protein 6.6 (6.3-8.2) g/dL Albumin 4.0 (3.5-5.0) g/dL 12/28/18 Range/Units 17:07 WBC (3.8-10.6) k/uL RBC (3.80-5.40) m/uL Hgb (11.4-16.0) gm/dL Hct (34.0-46.0) % MCV (80.0-100.0) fL MCH (25.0-35.0) pg MCHC (31.0-37.0) g/dL RDW (11.5-15.5) % Plt Count (150-450) k/uL Neutrophils % % Lymphocytes % % Monocytes % % Eosinophils % % Basophils % % Neutrophils # (1.3-7.7) k/uL Lymphocytes # (1.0-4.8) k/uL Monocytes # (0-1.0) k/uL Eosinophils # (0-0.7) k/uL Basophils # (0-0.2) k/uL PT 10.5 (9.0-12.0) sec INR 1.0 (<1.2) APTT 25.1 (22.0-30.0) sec Sodium (137-145) mmol/L Potassium (3.5-5.1) mmol/L Chloride (98-107) mmol/L Carbon Dioxide (22-30) mmol/L Anion Gap mmol/L BUN (7-17) mg/dL Creatinine (0.52-1.04) mg/dL Est GFR (CKD-EPI)AfAm (>60 ml/min/1.73 sqM) Est GFR (CKD-EPI)NonAf (>60 ml/min/1.73 sqM) Glucose (74-99) mg/dL Calcium (8.4-10.2) mg/dL Magnesium (1.6-2.3) mg/dL Total Bilirubin (0.2-1.3) mg/dL AST (14-36) U/L ALT (9-52) U/L Alkaline Phosphatase (38-126) U/L Total Creatine Kinase (30-135) U/L CK-MB (CK-2) (0.0-2.4) ng/mL CK-MB (CK-2) Rel Index Troponin I (0.000-0.034) ng/mL Total Protein (6.3-8.2) g/dL Albumin (3.5-5.0) g/dL Disposition Clinical Impression: Dyspnea Disposition: HOME SELF-CARE Condition: Good Instructions (If sedation given, give patient instructions): Dyspnea (ED) Is patient prescribed a controlled substance at d/c from ED?: No Referrals: Rafy Jones MD [Primary Care Provider] - 1-2 days Calderon Terry DO [Doctor of Osteopathic Medicine] - 1-2 days Time of Disposition: 18:18
[2018-12-28 17:21] LABS: Basophils # (A) 0.1 k/uL (0-0.2); Basophils % (A) 1 %; Eosinophils # (A) 0.1 k/uL (0-0.7); Eosinophils % (A) 1 %; HCT 51.1 % (34.0-46.0); HGB 17.7 gm/dL (11.4-16.0); Lymphocytes % (A) 13 %; MCH 29.5 pg (25.0-35.0); MCHC 34.6 g/dL (31.0-37.0); MCV 85.1 fL (80.0-100.0); Mean Platelet Volume 6.6; Monocytes # (A) 0.4 k/uL (0-1.0); Monocytes % (A) 5 %; Neutrophils # (A) 5.7 k/uL (1.3-7.7); Neutrophils % (A) 78 %; Platelet Count 189 k/uL (150-450); RBC 6.01 m/uL (3.80-5.40); WBC 7.4 k/uL (3.8-10.6)
[2018-12-28 17:31] LABS: Partial Thromboplastin Time 25.1 sec (22.0-30.0); Prothrombin Time 10.5 sec (9.0-12.0)
[2018-12-28 17:32] LABS: Magnesium 1.9 mg/dL (1.6-2.3); Potassium 4.5 mmol/L (3.5-5.1); Total Bilirubin 2.1 mg/dL (0.2-1.3); Total Protein 6.6 g/dL (6.3-8.2)
[2018-12-28 17:48] LABS: Creatine Kinase MB 2.9 ng/mL (0.0-2.4); Troponin I 0.034 ng/mL (0.000-0.034)
--- NOTE | 2018-12-28 17:56 | XR ---
EXAMINATION TYPE: XR chest 2V DATE OF EXAM: 12/28/2018 COMPARISON: 12/23/2018 HISTORY: Difficulty breathing TECHNIQUE: Frontal and lateral views of the chest are obtained. FINDINGS: There is no heart failure nor confluent pneumonic infiltrate. Costophrenic angles are efrain r. There are chest leads. There is old left clavicle fracture. Heart is top normal in size. IMPRESSION: Mild cardiomegaly. There is improvement in the pulmonary vascularity compared to last ex am. No pulmonary consolidation.
[2018-12-28] MEDS ORDERED: FUROSEMIDE 10 MG/ML 2 ML VIAL IV ONE (18:07)
[2018-12-28 18:27] VITALS: BP 109/69; RESP 20
[2018-12-28 18:46] VITALS: PULSE 86; TEMP 98.1
== END 2018-12-28 18:40 | disposition home or self-care (01) ==
LOC: EC 16:02
DX: R06.00 Dyspnea, unspecified (principal); I48.91 Unspecified atrial fibrillation; J44.9 Chronic obstructive pulmonary disease, unspecified; M79.7 Fibromyalgia; E78.5 Hyperlipidemia, unspecified; I10 Essential (primary) hypertension; G40.909 Epilepsy, unspecified, not intractable, without status epilepticus; E07.9 Disorder of thyroid, unspecified; G62.9 Polyneuropathy, unspecified; F41.9 Anxiety disorder, unspecified; F32.9 Major depressive disorder, single episode, unspecified; Z86.73 Personal history of transient ischemic attack (TIA), and cerebral infarction without residual deficits; Z87.891 Personal history of nicotine dependence; Z90.49 Acquired absence of other specified parts of digestive tract; Z90.710 Acquired absence of both cervix and uterus; Z98.890 Other specified postprocedural states; Z79.01 Long term (current) use of anticoagulants; Z79.51 Long term (current) use of inhaled steroids; Z79.82 Long term (current) use of aspirin; Z79.890 Hormone replacement therapy; Z79.899 Other long term (current) drug therapy; Z88.5 Allergy status to narcotic agent; Z91.040 Latex allergy status; Z91.048 Other nonmedicinal substance allergy status
CPT/HCPCS: 36415; 93005; 80053; 82550; 82553; 83735; 84484; 85025; 85610; 85730; 71046; 99285; 96374; J1940

== ENCOUNTER 2019-01-01 07:28 | Day surgery (SDC) | payer MEDICARE ==
[~2019-01-01 07:28] MED LIST changes: +ALPRAZolam 0.25 MG TAB PO PRN; +ALPRAZolam 0.5 MG TAB PO PRN; +ATORVASTATIN 80 MG TAB PO STA; -LACTATED RINGERS 1,000 ML IV SCH; -LIDOCAINE 1% 20 ML VIAL (10MG/ML) FOR IV START INTRADERMA PRN; +NITROGLYCERIN SL TABS 0.4 MG TAB SUBLINGUAL PRN
[2019-01-01] MEDS ORDERED: SODIUM CHLORIDE 0.9% 1,000 ML in EMPTY BAG 1 BAG IV ONE (08:00)
[2019-01-01] MEDS: ASPIRIN 325 MG TAB PO STA ×2 (08:15→10:38)
[2019-01-01 08:30] VITALS: TEMP 98.1
[2019-01-01] MEDS ORDERED: VERAPAMIL 2.5 MG/ML 2 ML AMP ONE (10:33)
[2019-01-01] MEDS ORDERED: HEPARIN SODIUM 1,000 UN/ML (10ML VL) ONE (10:33)
[2019-01-01] MEDS ORDERED: MIDAZOLAM 2 MG/2 ML VIAL IV ONE ×2 (10:38)
[2019-01-01] MEDS ORDERED: LIDOCAINE 2% INJ 20 MG/ML SQ ONE (10:42)
[2019-01-01] MEDS ORDERED: VERAPAMIL SYRINGE (5 MG/10 ML) INTRAARTER ONE (10:44)
[2019-01-01] MEDS ORDERED: HEPARIN SODIUM 1,000 UN/ML (10ML VL) IV ONE (10:46)
[2019-01-01] MEDS ORDERED: IOPAMIDOL-370 125ML BTL INJ ONE (10:53)
[2019-01-01] MEDS ORDERED: RX INFO: IV CONTRAST WAS GIVEN 1 EACH MISC MISCELLANE PRN (10:57)
[2019-01-01] MEDS ORDERED: SODIUM CHLORIDE 0.9% 1,000 ML IV SCH (11:00)
--- NOTE | 2019-01-01 11:27 | CC ---
CARDIAC CATHETERIZATION REPORT DATE OF SERVICE: January 01, 2019 PERFORMING PHYSICIAN: Ed Rasmussen MD, Java Sdet. PROCEDURE PERFORMED: 1. Selective right and left coronary angiogram. 2. Left heart catheterization. INDICATION: This is a pleasant 73-year-old female patient with hypertension, dyslipidemia, chronic atrial fibrillation, who was experiencing chest discomfort and shortness of breath. She was admitted, presented to the hospital with heart failure and mildly abnormal cardiac enzymes. She continues to have symptoms of chest pain and discomfort and she was scheduled to undergo a heart catheterization. APPROACH: Right radial artery. COMPLICATION: None. LEVEL OF SEDATION: Moderate sedation length of 14 minutes. PROCEDURE DESCRIPTION: After obtaining an informed consent, the patient was brought to the cardiac engineering laboratory technician. The right radial artery was cannulated using micropuncture technique and a micropuncture wire passed easily. Then I placed a 5-Italian sheath in the right radial artery. After that, I gave the patient 5000 units of heparin IV. Selective right and left coronary angiogram was performed using JR4 and JL3.5 catheters. Left heart catheterization was performed using the JR4 catheter history which was flipped into the LV then and pullback across aortic valve. The procedure was completed without any complication. SELECTIVE CORONARY ANGIOGRAM: 1. The right coronary artery is a large caliber vessel and it is a dominant vessel. It is angiographically normal. It distally bifurcates into PDA and PLV branches, both are angiographically normal. 2. The left main is angiographically normal. It bifurcates into left circumflex, ramus intermedius, and left anterior descending artery. 3. Left circumflex is a large caliber vessel. It is a nondominant vessel. The proximal circumflex has mild eccentric lesion, appeared to be in the range of 20% to 30%. The mid circumflex is normal, gives rise into a large OM branch which appeared to be angiographically normal and the circumflex distally appeared to be normal. 4. The ramus intermedius appeared to have mild disease in the proximal portion. It is a large caliber vessel. 5. The LAD, the proximal LAD appeared to be normal. It gives rise into a large diagonal branch which appeared to be normal. The mid LAD and distal LAD appeared to be angiographically normal. The LAD in the mid to distal portion gives rise into second diagonal branch which appeared to be angiographically normal. HEMODYNAMICS: The left ventricular end-diastolic pressure was 8 mmHg without significant gradient across the aortic valve. CONCLUSION: Mild nonobstructive coronary artery disease involving the left circumflex and ramus intermedius coronary arteries. POSTPROCEDURE MANAGEMENT: 1. Maximize medical treatment. 2. Aggressive cholesterol control. 3. Follow up with the patient. STEVENSON / RAIN: [id number] /
--- NOTE | 2019-01-01 11:27 | LTR ---
DATE OF SERVICE: 01/01/2019 RE: Linda Cagle Dear Dr. Jones; Ms. Linda Cagle underwent a heart catheterization today, January 02, 2019 and that revealed mild nonobstructive coronary artery disease involving the left circumflex and ramus intermedius coronary arteries. Thank you again for allowing me to participate in her care and please do not hesitate to call us for any question or concern. Sincerely, MD STEVENSON Garcia / RAIN: [id number] /
[2019-01-01 16:44] VITALS: RESP 16
[2019-01-01 19:09] VITALS: BP 115/68; PULSE 72
== END 2019-01-01 19:09 | disposition home or self-care (01) ==
LOC: CATHCVL 07:28
PROVIDERS: ATTEND Internal Medicine Interventional Cardiology
DX: I25.110 Atherosclerotic heart disease of native coronary artery with unstable angina pectoris (principal); I48.2 Chronic atrial fibrillation; I11.0 Hypertensive heart disease with heart failure; I50.33 Acute on chronic diastolic (congestive) heart failure; E78.5 Hyperlipidemia, unspecified; E78.00 Pure hypercholesterolemia, unspecified; J44.9 Chronic obstructive pulmonary disease, unspecified; I34.0 Nonrheumatic mitral (valve) insufficiency; G40.909 Epilepsy, unspecified, not intractable, without status epilepticus; Q85.00 Neurofibromatosis, unspecified; E03.9 Hypothyroidism, unspecified; I27.21 Secondary pulmonary arterial hypertension; F17.210 Nicotine dependence, cigarettes, uncomplicated; Z79.890 Hormone replacement therapy; Z79.899 Other long term (current) drug therapy; Z79.01 Long term (current) use of anticoagulants; Z88.5 Allergy status to narcotic agent; Z88.8 Allergy status to other drugs, medicaments and biological substances; Z91.040 Latex allergy status
CPT/HCPCS: 93458; C1769; C1894; J2001; J2250; J1644; Q9967

== ENCOUNTER 2019-01-04 15:01 | Inpatient (IN) | payer MEDICARE ==
[2019-01-04] MEDS ORDERED: SODIUM CHLORIDE 0.9% 1,000 ML IV STA (16:08)
--- NOTE | 2019-01-04 16:44 | ED ---
General Adult HPI - General Source: patient, family, RN notes reviewed Mode of arrival: ambulatory Limitations: no limitations <Silviano Rios - Last Filed: 01/04/19 16:42> <Jean Claude Hernadez - Last Filed: 01/04/19 19:34> - General Chief complaint: Weakness Stated complaint: Weakness Time Seen by Provider: 01/04/19 15:33 - History of Present Illness Initial comments: This is a 73-year-old female presents emergency Department with family with chief complaint of weakness. Patient states she had a cardiac cath on Friday by Dr. Rasmussen. Patient states that this was a diagnostic study with no acute findings. Patient states that she started falling on Friday has been falling consistently every day has struck her head and is currently taking Pradaxa. Patient states that she just generalized weak. Family states that she is very unsteady on her feet and cannot hold her balance. Patient has no focal weakness or deficits. Family states that she's been more confused than usual. Patient had a recent urinalysis which showed no evidence of urinary tract infection. Patient also was treated for pneumonia in October. She was told that this has cleared by her weakness has worsened since her hospitalization. Patient denies any current nausea vomiting. Patient states that she's had ongoing GI issues is scheduled for an EGD by Dr. Chavez. (Silviano Rios) - Related Data Home Medications Medication Instructions Recorded Confirmed DULoxetine HCL [Cymbalta] 60 mg PO DAILY 07/27/14 01/04/19 Gabapentin [Neurontin] 600 mg PO TID 07/27/14 01/04/19 Digoxin [Digox] 125 mcg PO DAILY 09/01/14 01/04/19 Aspirin 81 mg PO DAILY 11/29/16 01/04/19 Budesonide/Formoterol Fumarate 2 puff INHALATION RT-BID 12/23/18 01/04/19 [Symbicort 160-4.5 Mcg Inhaler] Levothyroxine Sodium [Synthroid] 50 mcg PO DAILY 12/23/18 01/04/19 Simvastatin [Zocor] 80 mg PO HS 12/23/18 01/04/19 Furosemide [Lasix] 40 mg PO BID@0800,1200 12/28/18 01/04/19 Metoprolol Tartrate [Lopressor] 50 mg PO BID 01/01/19 01/04/19 Dabigatran [Pradaxa] 150 mg PO BID 01/04/19 01/04/19 clonazePAM [KlonoPIN] 1 mg PO BID 01/04/19 01/04/19 Previous Rx's Medication Instructions Recorded Pantoprazole Sodium [Protonix] 40 mg PO DAILY #30 tablet. 12/25/18 Allergies Allergy/AdvReac Type Severity Reaction Status Date / Time adhesive tape Allergy Rash/ITCHIN Verified 01/04/19 16:16 G codeine Allergy Unknown Verified 01/04/19 16:16 latex Allergy Rash/Hives Verified 01/04/19 16:16 meperidine HCl [From Demerol] AdvReac Nausea & Verified 01/04/19 16:16 Vomiting,HEADACHE Review of Systems ROS Other: All systems not noted in ROS Statement are negative. <Silviano Rios - Last Filed: 01/04/19 16:42> ROS Other: All systems not noted in ROS Statement are negative. <Jean Claude Hernadez - Last Filed: 01/04/19 19:34> ROS Statement: Those systems with pertinent positive or pertinent negative responses have been documented in the HPI. 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, neuropathy, neurofibromatosis, past uti-ecoloi 2015, stress test 2013 History of Any Multi-Drug Resistant Organisms: None Reported Past Surgical History: Cholecystectomy, Heart Catheterization, Hysterectomy Additional Past Surgical History / Comment(s): HILDA CATARACT, cardioversion 2013 , lap cholecystectomy 2016 Past Anesthesia/Blood Transfusion Reactions: No Reported Reaction Past Psychological History: Anxiety, Depression Smoking Status: Former smoker Past Alcohol Use History: None Reported Past Drug Use History: None Reported - Past Family History Father Additional Family Medical History / Comment(s): AT AGE 96, MACULAR DEGENERATION, AFIB AT AGE 90 Mother Family Medical History: No Reported History Additional Family Medical History / Comment(s): MOM AT AGE 89-ALZHEIMERS <Silviano Rios - Last Filed: 01/04/19 16:42> General Exam Limitations: no limitations General appearance: alert, in no apparent distress Head exam: Present: atraumatic, normocephalic, normal inspection Eye exam: Present: normal appearance, PERRL, EOMI. Absent: scleral icterus, conjunctival injection, periorbital swelling ENT exam: Present: normal exam, normal oropharynx, mucous membranes moist, TM's normal bilaterally, normal external ear exam Neck exam: Present: normal inspection. Absent: tenderness, meningismus, lymphadenopathy Respiratory exam: Present: normal lung sounds bilaterally. Absent: respiratory distress, wheezes, rales, rhonchi, stridor Cardiovascular Exam: Present: regular rate, normal rhythm, normal heart sounds. Absent: systolic murmur, diastolic murmur, rubs, gallop, clicks GI/Abdominal exam: Present: soft, normal bowel sounds. Absent: distended, tenderness, guarding, rebound, rigid Neurological exam: Present: alert, oriented X3, CN II-XII intact, reflexes normal. Absent: motor sensory deficit Skin exam: Present: warm, dry, intact, normal color. Absent: rash <Silviano Rios M - Last Filed: 01/04/19 16:42> Vital Signs 01/04/19 01/04/19 15:48 17:36 Temperature 97.3 F L Pulse Rate 74 70 Respiratory 18 18 Rate Blood Pressure 124/66 96/67 O2 Sat by Pulse 100 98 Oximetry EKG Findings - EKG Comments: EKG Findings:: EKG shows A. fib rate of 57, QRS 100, QTc 430 <Jean Claude Hernadez - Last Filed: 01/04/19 19:34> Medical Decision Making - Lab Data Result diagrams: 01/04/19 17:08 01/04/19 17:08 <Jean Claude Hernadez B - Last Filed: 01/04/19 19:34> - Lab Data Lab Results 01/04/19 01/04/19 01/04/19 Range/Units 17:08 17:08 17:08 WBC 6.6 (3.8-10.6) k/uL RBC 5.23 (3.80-5.40) m/uL Hgb 16.3 H (11.4-16.0) gm/dL Hct 44.7 (34.0-46.0) % MCV 85.4 (80.0-100.0) fL MCH 31.2 (25.0-35.0) pg MCHC 36.5 (31.0-37.0) g/dL RDW 14.0 (11.5-15.5) % Plt Count 191 (150-450) k/uL Neutrophils % 76 % Lymphocytes % 14 % Monocytes % 6 % Eosinophils % 2 % Basophils % 1 % Neutrophils # 5.0 (1.3-7.7) k/uL Lymphocytes # 0.9 L (1.0-4.8) k/uL Monocytes # 0.4 (0-1.0) k/uL Eosinophils # 0.1 (0-0.7) k/uL Basophils # 0.1 (0-0.2) k/uL PT (9.0-12.0) sec INR (<1.2) APTT (22.0-30.0) sec Sodium 133 L (137-145) mmol/L Potassium 3.4 L (3.5-5.1) mmol/L Chloride 90 L (98-107) mmol/L Carbon Dioxide 32 H (22-30) mmol/L Anion Gap 11 mmol/L BUN 41 H (7-17) mg/dL Creatinine 1.53 H (0.52-1.04) mg/dL Est GFR (CKD-EPI)AfAm 39 (>60 ml/min/1.73 sqM) Est GFR (CKD-EPI)NonAf 34 (>60 ml/min/1.73 sqM) Glucose 100 H (74-99) mg/dL Plasma Lactic Acid Kostas (0.7-2.0) mmol/L Calcium 9.2 (8.4-10.2) mg/dL Phosphorus 4.4 (2.5-4.5) mg/dL Magnesium 1.7 (1.6-2.3) mg/dL Total Bilirubin 0.7 (0.2-1.3) mg/dL AST 17 (14-36) U/L ALT 20 (9-52) U/L Alkaline Phosphatase 54 (38-126) U/L Total Creatine Kinase 39 (30-135) U/L CK-MB (CK-2) 1.4 (0.0-2.4) ng/mL CK-MB (CK-2) Rel Index 3.6 Troponin I 0.039 H* (0.000-0.034) ng/mL Total Protein 5.9 L (6.3-8.2) g/dL Albumin 3.5 (3.5-5.0) g/dL TSH 2.200 (0.465-4.680) mIU/L Urine Color Urine Appearance (Clear) Urine pH (5.0-8.0) Ur Specific Byron (1.001-1.035) Urine Protein (Negative) Urine Glucose (UA) (Negative) Urine Ketones (Negative) Urine Blood (Negative) Urine Nitrite (Negative) Urine Bilirubin (Negative) Urine Urobilinogen (<2.0) mg/dL Ur Leukocyte Esterase (Negative) Urine RBC (0-5) /hpf Urine WBC (0-5) /hpf Ur Squamous Epith Cells (0-4) /hpf Urine Mucus (None) /hpf 01/04/19 01/04/19 01/04/19 Range/Units 17:08 17:08 19:10 WBC (3.8-10.6) k/uL RBC (3.80-5.40) m/uL Hgb (11.4-16.0) gm/dL Hct (34.0-46.0) % MCV (80.0-100.0) fL MCH (25.0-35.0) pg MCHC (31.0-37.0) g/dL RDW (11.5-15.5) % Plt Count (150-450) k/uL Neutrophils % % Lymphocytes % % Monocytes % % Eosinophils % % Basophils % % Neutrophils # (1.3-7.7) k/uL Lymphocytes # (1.0-4.8) k/uL Monocytes # (0-1.0) k/uL Eosinophils # (0-0.7) k/uL Basophils # (0-0.2) k/uL PT 11.5 (9.0-12.0) sec INR 1.1 (<1.2) APTT 34.5 H (22.0-30.0) sec Sodium (137-145) mmol/L Potassium (3.5-5.1) mmol/L Chloride (98-107) mmol/L Carbon Dioxide (22-30) mmol/L Anion Gap mmol/L BUN (7-17) mg/dL Creatinine (0.52-1.04) mg/dL Est GFR (CKD-EPI)AfAm (>60 ml/min/1.73 sqM) Est GFR (CKD-EPI)NonAf (>60 ml/min/1.73 sqM) Glucose (74-99) mg/dL Plasma Lactic Acid Kostas 1.7 (0.7-2.0) mmol/L Calcium (8.4-10.2) mg/dL Phosphorus (2.5-4.5) mg/dL Magnesium (1.6-2.3) mg/dL Total Bilirubin (0.2-1.3) mg/dL AST (14-36) U/L ALT (9-52) U/L Alkaline Phosphatase (38-126) U/L Total Creatine Kinase (30-135) U/L CK-MB (CK-2) (0.0-2.4) ng/mL CK-MB (CK-2) Rel Index Troponin I (0.000-0.034) ng/mL Total Protein (6.3-8.2) g/dL Albumin (3.5-5.0) g/dL TSH (0.465-4.680) mIU/L Urine Color Yellow Urine Appearance Clear (Clear) Urine pH 5.0 (5.0-8.0) Ur Specific Byron 1.009 (1.001-1.035) Urine Protein Negative (Negative) Urine Glucose (UA) Negative (Negative) Urine Ketones Negative (Negative) Urine Blood Small H (Negative) Urine Nitrite Negative (Negative) Urine Bilirubin Negative (Negative) Urine Urobilinogen <2.0 (<2.0) mg/dL Ur Leukocyte Esterase Negative (Negative) Urine RBC 2 (0-5) /hpf Urine WBC 1 (0-5) /hpf Ur Squamous Epith Cells <1 (0-4) /hpf Urine Mucus Rare H (None) /hpf Disposition <Silviano Rios - Last Filed: 01/04/19 16:42> Is patient prescribed a controlled substance at d/c from ED?: No <Jean Claude Hernadez - Last Filed: 01/04/19 19:34> Clinical Impression: Weakness, Falls, Hypokalemia, Dehydration, Acute renal failure, Elevated troponin Disposition: ADMITTED IP TO THIS HOSP Condition: Fair Referrals: Rafy Jones MD [Primary Care Provider] - 1-2 days
[2019-01-04 17:33] LABS: Basophils # (A) 0.1 k/uL (0-0.2); Basophils % (A) 1 %; Eosinophils # (A) 0.1 k/uL (0-0.7); Eosinophils % (A) 2 %; HCT 44.7 % (34.0-46.0); HGB 16.3 gm/dL (11.4-16.0); Lymphocytes # (A) 0.9 k/uL (1.0-4.8); Lymphocytes % (A) 14 %; MCH 31.2 pg (25.0-35.0); MCHC 36.5 g/dL (31.0-37.0); MCV 85.4 fL (80.0-100.0); Mean Platelet Volume 7.5; Monocytes # (A) 0.4 k/uL (0-1.0); Monocytes % (A) 6 %; Neutrophils % (A) 76 %; Platelet Count 191 k/uL (150-450); RBC 5.23 m/uL (3.80-5.40); WBC 6.6 k/uL (3.8-10.6)
[2019-01-04 17:43] LABS: Albumin 3.5 g/dL (3.5-5.0); Calcium 9.2 mg/dL (8.4-10.2); Magnesium 1.7 mg/dL (1.6-2.3); Phosphorus 4.4 mg/dL (2.5-4.5); Potassium 3.4 mmol/L (3.5-5.1); Total Bilirubin 0.7 mg/dL (0.2-1.3); Total Protein 5.9 g/dL (6.3-8.2)
[2019-01-04 18:03] LABS: INR 1.1 (<1.2); Partial Thromboplastin Time 34.5 sec (22.0-30.0); Prothrombin Time 11.5 sec (9.0-12.0)
[2019-01-04 18:08] LABS: Creatine Kinase MB 1.4 ng/mL (0.0-2.4)
[2019-01-04 18:13] LABS: Troponin I 0.039 ng/mL (0.000-0.034)
--- NOTE | 2019-01-04 18:25 | XR ---
EXAMINATION TYPE: XR chest 2V DATE OF EXAM: 01/04/2019 COMPARISON: Chest x-ray December 28, 2018. CT chest December 24, 2018 HISTORY: Weakness and frequent falls. TECHNIQUE: Frontal and lateral views of the chest are obtained. FINDINGS: There is chronic parenchymal change without new focal air space opacity, pleural effusion, or pneumothorax seen. The cardiac silhouette size remains enlarged. The osseous structures remain demineralized. Healing or healed fracture left mid clavicle is redemonstrated. IMPRESSION: Cardiomegaly and chronic parenchymal changes without acute pulmonary process.
--- NOTE | 2019-01-04 19:05 | CT ---
EXAMINATION TYPE: CT brain kristyn pimentel DATE OF EXAM: 01/04/2019 COMPARISON: CT brain November 18, 2018 HISTORY: Multiple falls int he past [address] DLP: 1485.9 mGycm. Automated Exposure Control for Dose Reduction was Utilized. TECHNIQUE: CT scan of the head and cervical spine are performed without contrast. FINDINGS: There is no acute intracranial hemorrhage or midline shift identified. Ventricular and morales lcal prominence is redemonstrated. Old lacunar infarct left head of caudate nucleus and basal gangli a axial image 25 are redemonstrated. There is improving hematoma over the frontal calvarium diminish in size and lower density. The globes are intact and the visualized sinuses are clear. Cervical spine is visualized in its entirety from C1 through upper thoracic levels and demonstrates s traightened alignment without evidence of acute fracture or dislocation. Prevertebral soft tissue ap pears within normal limits. The C1-C2 articulation is within normal limits on the coronal images. T here is grade 1 retrolisthesis of C6 on C7. Vertebral body heights are maintained. There is moderate disc space narrowing and mild to moderate spurring at C6-C7 level with posterior spurring effacing th e anterior thecal sac. Axial images show right-sided uncovertebral facet degenerative changes C3-C4 l evel contributing to moderate to advanced right-sided neural foraminal narrowing. Thyroid gland is fe lt to within normal limits. Lung apices show mild to moderate emphysematous change. IMPRESSION: 1. There is no acute fracture or dislocation evident in the cervical spine. 2. No acute intracranial hemorrhage or midline shift is seen. Resolving anterior frontal hematoma not ed.
[2019-01-04] MEDS ORDERED: NITROGLYCERIN SL TABS 0.4 MG TAB SUBLINGUAL PRN (19:30)
[2019-01-04 19:33] LABS: Appearance,Urine Clear (Clear); Bilirubin,Urine Negative (Negative); Blood,Urine Small (Negative); Color,Urine Yellow; Glucose,Urine (UA) Negative (Negative); Ketones,Urine Negative (Negative); Leukocyte Esterase,Urine Negative (Negative); Mucus,Urine Rare /hpf; Nitrite,Urine Negative (Negative); Protein,Urine Negative (Negative); RBC,Urine 2 /hpf (0-5); Specific Gravity,Urine 1.009 (1.001-1.035); Squamous Epithelial Cell,Urine <1 /hpf (0-4); Urobilinogen,Urine <2.0 mg/dL (<2.0); WBC,Urine 1 /hpf (0-5)
[2019-01-04] MEDS ORDERED: LORazepam 2 MG/ML INJ IV PRN (23:28)
[2019-01-04] MEDS: MORPHINE SULFATE 4 MG/ML SYRINGE IVP PRN (23:40)
[2019-01-05 00:52] LABS: Creatine Kinase MB 1.5 ng/mL (0.0-2.4)
[2019-01-05 00:54] LABS: Troponin I 0.041 ng/mL (0.000-0.034)
[2019-01-05 06:04] LABS: Cholesterol 123 mg/dL (<200); HDL Cholesterol 43 mg/dL (40-60); LDL Cholesterol,Calculated 59 mg/dL (0-99); Triglycerides 106 mg/dL (<150)
[2019-01-05 06:27] LABS: Creatine Kinase MB 1.5 ng/mL (0.0-2.4)
[2019-01-05 06:37] LABS: Troponin I 0.039 ng/mL (0.000-0.034)
[2019-01-05] MEDS ORDERED: ASPIRIN 325 MG TAB PO SCH (09:00)
[2019-01-05] MEDS ORDERED: DABIGATRAN 150 MG CAP PO SCH (09:00)
[2019-01-05] MEDS: METOPROLOL TARTRATE 50 MG TAB PO SCH ×2 (09:57→20:23)
[2019-01-05] MEDS: GABAPENTIN 300 MG CAP PO SCH ×3 (10:07→20:23)
[2019-01-05] MEDS: ASPIRIN 81 MG PO SCH (10:07)
[2019-01-05] MEDS: PANTOPRAZOLE 40 MG TABLET PO SCH (10:08)
[2019-01-05] MEDS: clonazePAM 1 MG TAB PO SCH ×2 (10:08→20:23)
[2019-01-05] MEDS: DULoxetine HCL 60 MG CAPSULE.DR PO SCH (12:11)
[2019-01-05] MEDS: LEVOTHYROXINE 50 MCG TAB PO SCH (12:12)
[2019-01-05] MEDS: DIGOXIN 125 MCG TAB PO SCH (12:12)
[2019-01-05] MEDS: SODIUM CHLORIDE 0.9% 1,000 ML IV SCH ×2 (13:08→20:23)
[2019-01-05] MEDS: FUROSEMIDE 40 MG TAB PO SCH (13:08)
--- NOTE | 2019-01-05 14:40 | P.HPIM ---
History of Present Illness H&P Date: 01/05/19 This is a 73-year-old female patient of Dr Jones, Dr. Rasmussen, Dr. Littlejohn. She has underlying history of epilepsy, neurofibromatosis, COPD, CAD, chronic atrial fibrillation on Pradaxa, hypertension, hyperlipidemia, active tobacco use and dependence, hypothyroidism. She had a recent hospitalization in December and treated for acute diastolic heart failure and there was concern for underlying coronary artery disease and patient came back in for heart catheterization as an outpatient on January 01 that found mild nonobstructing coronary artery disease involving the left circumflex and ramus intermedius coronary arteries. Recommendations were to maximize medical treatment and aggressive cholesterol control. She had GI symptoms for which she is scheduled for EGD with Dr. Beebe. Echocardiogram from December 2017 reveals EF of 55-60% with mild concentric left ventricular hypertrophy, LA severely dilated greater than 40, mild aortic valve sclerosis, trace mitral regurgitation, mild tricuspid regurgitation Patient apparently is having trouble with falling at home. She states she was at Dr. Jones's office yesterday. Patient is quite drowsy and a poor historian. Patient came into [facility] emergency center for evaluation. Initial vital signs were temperature 97.3, pulse 74, blood pressure 124/66 and pulse ox on her percent. EKG was A. fib at rate of 57. White count normal, hemoglobin 16.3, platelet count 191. Sodium 133, potassium 3.4, chloride 90 CO2 32, BUN 41 and creatinine 1.53. Blood sugar 100. Troponin 0.039. TSH 2.200. Lactic acid 1.7. Urinalysis was clear, blood small, nitrate and leukoesterase negative. Chest x-ray reveals cardiomegaly with chronic parenchymal changes without acute pulmonary process. CT of the brain and C- spine showed no acute fracture dislocation of the cervical spine. No acute intracranial hemorrhage or midline shift. Resolving anterior frontal hematoma noted. Patient will be started on IV fluids and home medications resumed, cardiology consult requested and monitor renal function. 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 She did see quit for short period 2013. No alcohol use, marijuana use, illicit drug use. - Past Family History Father Additional Family Medical History / Comment(s): AT AGE 96, MACULAR DEGENERATION, AFIB AT AGE 90 Mother Family Medical History: No Reported History Additional Family Medical History / Comment(s): MOM AT AGE 89-ALZHEIMERS Medications and Allergies Home Medications Medication Instructions Recorded Confirmed Type DULoxetine HCL [Cymbalta] 60 mg PO DAILY 07/27/14 01/04/19 History Gabapentin [Neurontin] 600 mg PO TID 07/27/14 01/04/19 History Digoxin [Digox] 125 mcg PO DAILY 09/01/14 01/04/19 History Aspirin 81 mg PO DAILY 11/29/16 01/04/19 History Budesonide/Formoterol Fumarate 2 puff INHALATION RT-BID 12/23/18 01/04/19 History [Symbicort 160-4.5 Mcg Inhaler] Levothyroxine Sodium [Synthroid] 50 mcg PO DAILY 12/23/18 01/04/19 History Simvastatin [Zocor] 80 mg PO HS 12/23/18 01/04/19 History Pantoprazole Sodium [Protonix] 40 mg PO DAILY #30 tablet. 12/25/18 01/04/19 Rx Furosemide [Lasix] 40 mg PO BID@0800,1200 12/28/18 01/04/19 History Metoprolol Tartrate [Lopressor] 50 mg PO BID 01/01/19 01/04/19 History Dabigatran [Pradaxa] 150 mg PO BID 01/04/19 01/04/19 History clonazePAM [KlonoPIN] 1 mg PO BID 01/04/19 01/04/19 History Allergies Allergy/AdvReac Type Severity Reaction Status Date / Time adhesive tape Allergy Rash/ITCHIN Verified 01/04/19 16:16 G codeine Allergy Unknown Verified 01/04/19 16:16 latex Allergy Rash/Hives Verified 01/04/19 16:16 meperidine HCl [From Demerol] AdvReac Nausea & Verified 01/04/19 16:16 Vomiting,HEADACHE Physical Exam Vitals: Vital Signs Temp Pulse Resp BP Pulse Ox 01/05/19 05:42 77 103/55 01/05/19 04:35 67 16 103/55 95 01/05/19 02:27 96.8 F L 63 18 97/52 96 01/04/19 22:30 73 18 106/63 98 01/04/19 20:00 75 18 98/64 97 01/04/19 17:36 70 18 96/67 98 01/04/19 15:48 97.3 F L 74 18 124/66 100 Intake and Output 01/04/19 01/05/19 01/05/19 22:59 06:59 14:59 Other: Weight 54.885 kg Gen: This is a 73-year-old female. Patient is on the ER stretcher and is quite lethargic, able to follow instructions but slow to respond. HEENT: Head is atraumatic, normocephalic. Pupils equal, round. Sclerae is anicteric. Conjunctiva pink. Mucous members of the mouth are somewhat dry. NECK: Supple. No JVD. No lymphadenopathy. No thyromegaly. LUNGS: Diminished with crackles bilaterally. No intercostal retractions. HEART: Irregularly irregular with a systolic murmur. ABDOMEN: Soft. Bowel sounds are present. No masses. No tenderness. EXTREMITIES: No pedal edema. No calf tenderness. Dorsalis pedis +2 bilaterally. Significant ecchymosis to the right wrist at site of heart catheterization. NEUROLOGICAL: Patient is awake, alert and oriented x3. Cranial nerves 2 through 12 are grossly intact. Results CBC & Chem 7: 01/04/19 17:08 01/04/19 17:08 Labs: Abnormal Lab Results - Last 24 Hours (Table) 01/04/19 01/04/19 01/04/19 Range/Units 17:08 17:08 17:08 Hgb 16.3 H (11.4-16.0) gm/dL Lymphocytes # 0.9 L (1.0-4.8) k/uL APTT (22.0-30.0) sec Sodium 133 L (137-145) mmol/L Potassium 3.4 L (3.5-5.1) mmol/L Chloride 90 L (98-107) mmol/L Carbon Dioxide 32 H (22-30) mmol/L BUN 41 H (7-17) mg/dL Creatinine 1.53 H (0.52-1.04) mg/dL Glucose 100 H (74-99) mg/dL Total Creatine Kinase (30-135) U/L Troponin I 0.039 H* (0.000-0.034) ng/mL Total Protein 5.9 L (6.3-8.2) g/dL Urine Blood (Negative) Urine Mucus (None) /hpf 01/04/19 01/04/19 01/04/19 Range/Units 17:08 19:10 23:39 Hgb (11.4-16.0) gm/dL Lymphocytes # (1.0-4.8) k/uL APTT 34.5 H (22.0-30.0) sec Sodium (137-145) mmol/L Potassium (3.5-5.1) mmol/L Chloride (98-107) mmol/L Carbon Dioxide (22-30) mmol/L BUN (7-17) mg/dL Creatinine (0.52-1.04) mg/dL Glucose (74-99) mg/dL Total Creatine Kinase (30-135) U/L Troponin I 0.041 H* (0.000-0.034) ng/mL Total Protein (6.3-8.2) g/dL Urine Blood Small H (Negative) Urine Mucus Rare H (None) /hpf 01/05/19 Range/Units 05:15 Hgb (11.4-16.0) gm/dL Lymphocytes # (1.0-4.8) k/uL APTT (22.0-30.0) sec Sodium (137-145) mmol/L Potassium (3.5-5.1) mmol/L Chloride (98-107) mmol/L Carbon Dioxide (22-30) mmol/L BUN (7-17) mg/dL Creatinine (0.52-1.04) mg/dL Glucose (74-99) mg/dL Total Creatine Kinase 27 L (30-135) U/L Troponin I 0.039 H* (0.000-0.034) ng/mL Total Protein (6.3-8.2) g/dL Urine Blood (Negative) Urine Mucus (None) /hpf Thrombosis Risk Factor Assmnt - DVT/VTE Prophylaxis DVT/VTE Prophylaxis: Pharmacologic Prophylaxis ordered Assessment and Plan Plan: 1. Acute kidney injury secondary to dehydration and recent heart catheterization. Patient started on IV fluids and 100 mL per hour. Recheck kidney function in the morning along with electrolytes. Avoid nephrotoxic agents. 2. Abnormal troponin. Repeat ordered. Echocardiogram as above. Cardiology on consult. 3. Hypotension, generalized weakness and metabolic encephalopathy secondary to dehydration and acute kidney injury. Continue IV fluids 100 mL per hour. 4. Chronic atrial fibrillation. Continue Pradaxa 150 mg twice daily, digoxin 125 g daily, aspirin 81 mg daily, Lopressor 50 mg twice daily. 5. Known history of epilepsy. Continue gabapentin 600 mg 3 times daily. 6. Hypertension. Continue Lopressor. 7. Hyperlipidemia. Continue simvastatin 80 mg at bedtime. 8. Neuropathy. Continue gabapentin 600 mg orally tid. 9. Hypothyroidism. Continue Synthroid 50 g daily. TSH 1.910. 10. COPD. Continue Symbicort twice daily and DuoNeb treatments as needed. 11. Chronic diastolic heart failure. Lasix is on hold. Continue Lopressor. 12. Recent weight loss with COPD, active tobacco use. CAT scan of the chest ordered. 13. Metabolic encephalopathy with mild confusion of unclear etiology. . DVT prophylaxis .David hose knee-high and heparin 5000 units sc q 12 hour post surgery. 14. generalized anxiety disorder. Continue Cymbalta 60 mg daily, gabapentin 600 mg 3 times daily. 15. GI prophylaxis. Pepcid. Patient will be admitted to the hospital for a minimum of 2 night stay. Discharge plan: To be determined. PT requested. Impression and plan of care have been directed as dictated by the signing physician. Re Saeed nurse practitioner acting as scribe for signing physician.
[2019-01-05] MEDS: SYMBICORT 160-4.5 MCG INHALER INHALATION SCH (20:14)
[2019-01-05] MEDS: DABIGATRAN 75 MG CAP PO SCH (20:23)
[2019-01-05] MEDS: ATORVASTATIN 40 MG TAB PO SCH (20:23)
[2019-01-06 05:59] LABS: Calcium 8.5 mg/dL (8.4-10.2); Potassium 3.3 mmol/L (3.5-5.1)
[2019-01-06] MEDS: LEVOTHYROXINE 50 MCG TAB PO SCH (06:15)
[2019-01-06] MEDS: SODIUM CHLORIDE 0.9% 1,000 ML IV SCH ×2 (06:37→17:38)
[2019-01-06 06:56] LABS: HCT 40.1 % (34.0-46.0); HGB 13.6 gm/dL (11.4-16.0); MCH 29.7 pg (25.0-35.0); MCHC 33.9 g/dL (31.0-37.0); MCV 87.6 fL (80.0-100.0); Mean Platelet Volume 6.7; Platelet Count 171 k/uL (150-450); RBC 4.58 m/uL (3.80-5.40); RDW 14.5 % (11.5-15.5); WBC 4.6 k/uL (3.8-10.6)
[2019-01-06] MEDS: SYMBICORT 160-4.5 MCG INHALER INHALATION SCH ×2 (08:10→19:46)
[2019-01-06] MEDS: PANTOPRAZOLE 40 MG TABLET PO SCH (08:30)
[2019-01-06] MEDS: FUROSEMIDE 40 MG TAB PO SCH ×2 (08:30→12:26)
[2019-01-06] MEDS: GABAPENTIN 300 MG CAP PO SCH ×3 (08:30→20:17)
[2019-01-06] MEDS: DIGOXIN 125 MCG TAB PO SCH (08:30)
[2019-01-06] MEDS: DULoxetine HCL 60 MG CAPSULE.DR PO SCH (08:30)
[2019-01-06] MEDS: ASPIRIN 81 MG PO SCH (08:30)
[2019-01-06] MEDS: clonazePAM 1 MG TAB PO SCH ×2 (08:30→20:17)
[2019-01-06] MEDS: METOPROLOL TARTRATE 50 MG TAB PO SCH ×2 (08:30→20:19)
--- NOTE | 2019-01-06 10:29 | P.CRDCN ---
History of Present Illness Consult date: 01/06/19 Requesting physician: Leon Resendiz Reason for Consult (text): weakness Chief complaint: Weakness and falls History of present illness: This is a 73-year-old female who follows regularly with Dr. Moreno in the office. She has a known history of chronic persistent atrial fibrillation, hypertension, hyperlipidemia, history of seizures, nicotine dependence, neurofibromatosis, prior TIA, fibromyalgia patient was recently in the hospital with symptoms of weakness, and she again presents to the hospital with symptoms of weakness, and falls. Patient did have a cardiac catheterization performed by Dr. Moreno on January 01 which revealed mild nonobstructive coronary artery disease in the circumflex and ramus intermediate. Chest x-ray on arrival here showed cardiomegaly and chronic parenchymal changes without any acute pulmonary process. EKG showed atrial fibrillation with a slow ventricular response. Blood pressure this morning 138/70 with a heart rate in the 60s. White blood cell count 6.6, 4.6 this morning, hemoglobin 16.3 on admission, 13.6 this morning. Platelet count 171. Sodium on admission 133 potassium 3.4, BUN 41 and creatinine 1.5. Troponin 0.03, 0.04, 0.03. TSH 2.2. This morning's labs, sodium 137, potassium 3.3, BUN [address] of the brain and C- spine showed no acute fracture or dislocation of the spine, no acute intracranial hemorrhage or midline shift. Resolving anterior frontal hematoma noted. Patient was initiated on IV fluids on presentation here, creatinine has improved this morning. 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 She did see quit for short period 2013. No alcohol use, marijuana use, illicit drug use. - Past Family History Father Additional Family Medical History / Comment(s): AT AGE 96, MACULAR DEGENERATION, AFIB AT AGE 90 Mother Family Medical History: No Reported History Additional Family Medical History / Comment(s): MOM AT AGE 89-ALZHEIMERS Medications and Allergies Home Medications Medication Instructions Recorded Confirmed Type DULoxetine HCL [Cymbalta] 60 mg PO DAILY 07/27/14 01/04/19 History Gabapentin [Neurontin] 600 mg PO TID 07/27/14 01/04/19 History Digoxin [Digox] 125 mcg PO DAILY 09/01/14 01/04/19 History Aspirin 81 mg PO DAILY 11/29/16 01/04/19 History Budesonide/Formoterol Fumarate 2 puff INHALATION RT-BID 12/23/18 01/04/19 History [Symbicort 160-4.5 Mcg Inhaler] Levothyroxine Sodium [Synthroid] 50 mcg PO DAILY 12/23/18 01/04/19 History Simvastatin [Zocor] 80 mg PO HS 12/23/18 01/04/19 History Pantoprazole Sodium [Protonix] 40 mg PO DAILY #30 tablet. 12/25/18 01/04/19 Rx Furosemide [Lasix] 40 mg PO BID@0800,1200 12/28/18 01/04/19 History Metoprolol Tartrate [Lopressor] 50 mg PO BID 01/01/19 01/04/19 History Dabigatran [Pradaxa] 150 mg PO BID 01/04/19 01/04/19 History clonazePAM [KlonoPIN] 1 mg PO BID 01/04/19 01/04/19 History Allergies Allergy/AdvReac Type Severity Reaction Status Date / Time adhesive tape Allergy Rash/ITCHIN Verified 01/04/19 16:16 G codeine Allergy Unknown Verified 01/04/19 16:16 latex Allergy Rash/Hives Verified 01/04/19 16:16 meperidine HCl [From Demerol] AdvReac Nausea & Verified 01/04/19 16:16 Vomiting,HEADACHE Physical Exam Vitals: Vital Signs Temp Pulse Pulse Resp BP Pulse Ox 01/06/19 04:00 78 16 139/70 93 L 01/05/19 23:58 82 16 93/60 98 01/05/19 20:00 97.3 F L 86 16 124/57 97 01/05/19 16:00 18 01/05/19 15:00 97.1 F L 86 16 100/67 92 L Intake and Output 01/05/19 01/06/19 01/06/19 22:59 06:59 14:59 Intake Total 230 Balance 230 Intake: Oral 230 Other: Voiding Method Bedside Commode # Voids 1 1 Weight 56 kg PHYSICAL EXAMINATION: GENERAL: 73-year-old female, very sleepy. In no acute distress at the time of my examination HEENT: Head is atraumatic, normocephalic. Pupils equal, round. Sclera anicteric. Conjunctiva are clear. Mucous membranes of the mouth are moist. Neck is supple. There is no elevated jugular venous pressure.] bruit is heard. HEART EXAMINATION: Heart S1 and S2 irregularly irregular a systolic murmur is heard. CHEST EXAMINATION: Lungs are clear to auscultation and precussion. No chest wall tenderness is noted on palpation or with deep breathing. ABDOMEN: Soft, nontender. Bowel sounds are heard. No organomegaly noted. EXTREMITIES: 2+ peripheral pulses with no evidence of peripheral edema and no calf tenderness noted. There is ecchymosis noted to the right wrist. NEUROLOGIC patient is awake, alert and oriented 3 . . Results 01/06/19 05:10 01/06/19 05:10 CBC 01/06/19 Range/Units 05:10 WBC 4.6 (3.8-10.6) k/uL RBC 4.58 (3.80-5.40) m/uL Hgb 13.6 (11.4-16.0) gm/dL Hct 40.1 (34.0-46.0) % Plt Count 171 (150-450) k/uL Comprehensive Metabolic Panel 01/06/19 Range/Units 05:10 Sodium 137 (137-145) mmol/L Potassium 3.3 L (3.5-5.1) mmol/L Chloride 102 (98-107) mmol/L Carbon Dioxide 30 (22-30) mmol/L BUN 28 H (7-17) mg/dL Creatinine 1.17 H (0.52-1.04) mg/dL Glucose 84 (74-99) mg/dL Calcium 8.5 (8.4-10.2) mg/dL Current Medications Generic Name Dose Route Start Last Admin Trade Name Freq PRN Reason Stop Dose Admin Aspirin 81 mg 01/05/19 09:00 01/06/19 08:30 Aspirin PO 81 mg DAILY TANA Administration Atorvastatin Calcium 40 mg 01/05/19 21:00 01/05/19 20:23 Lipitor PO 40 mg HS TANA Administration Budesonide/Formoterol Fumarate 2 puff 01/05/19 20:00 01/06/19 08:10 Symbicort 160-4.5 Mcg Inhaler INHALATION 2 puff RT-BID TANA Administration Clonazepam 1 mg 01/05/19 09:00 01/06/19 08:30 Klonopin PO 1 mg BID TANA Administration Dabigatran 75 mg 01/05/19 21:00 01/05/19 20:23 Pradaxa PO 75 mg BID TANA Administration Digoxin 125 mcg 01/05/19 09:00 01/06/19 08:30 Lanoxin PO 125 mcg DAILY TANA Administration Duloxetine HCl 60 mg 01/05/19 09:00 01/06/19 08:30 Cymbalta PO 60 mg DAILY TANA Administration Furosemide 40 mg 01/05/19 12:00 01/06/19 08:30 Lasix PO 40 mg BID@0800,1200 TANA Administration Gabapentin 600 mg 01/05/19 09:00 01/06/19 08:30 Neurontin PO 600 mg TID TANA Administration Sodium Chloride 1,000 mls @ 100 mls/hr 01/05/19 11:00 01/06/19 06:37 Saline 0.9% IV 100 mls/hr .Q10H TANA Administration Levothyroxine Sodium 50 mcg 01/05/19 09:00 01/06/19 06:15 Synthroid PO 50 mcg 0630 TANA Administration Metoprolol Tartrate 50 mg 01/05/19 09:00 01/06/19 08:30 Lopressor PO 50 mg BID TANA Administration Morphine Sulfate 4 mg 01/04/19 23:27 01/04/19 23:40 Morphine Sulfate (Inj) IVP 4 mg Q4HR PRN Administration Pain Nitroglycerin 0.4 mg 01/04/19 19:30 Nitrostat SUBLINGUAL Q5M PRN Chest Pain Pantoprazole Sodium 40 mg 01/05/19 09:00 01/06/19 08:30 Protonix PO 40 mg DAILY TANA Administration Intake and Output 01/05/19 01/06/19 01/06/19 22:59 06:59 14:59 Intake Total 230 Balance 230 Intake: Oral 230 Other: Voiding Method Bedside Commode # Voids 1 1 Weight 56 kg 01/06/19 05:10 01/06/19 05:10 EKG Interpretations (text) EKG shows atrial fibrillation with a slow ventricular response. Assessment and Plan Plan: Assessment and plan #1 symptoms of progressive weakness, could be secondary to acute kidney injury from recent cardiac catheterization. Patient did receive IV fluids at 100 mL per hour, creatinine improved this morning. #2 abnormal troponin, not consistent with acute coronary syndrome with no significant rise and fall pattern. #3 chronic persistent atrial fibrillation #4 epilepsy #5 hypertension, blood pressure low on admission here, stable this #6 hyperlipidemia #7 neuropathy #8 neuro fibromatosis #9 hypothyroidism #10 COPD #11 anxiety #12 recent cardiac catheterization that did not reveal any significant obstructive coronary artery disease, medical therapy advised. Plan Patient has been given IV fluids, creatinine is improving this morning as is her blood pressure. From our perspective, we'll continue current medications. Follow-up appointment with Dr. Moreno in the office post discharge. DNP note has been reviewed, I agree with a documented findings and plan of care. Patient was seen and examined.
[2019-01-06] MEDS: DABIGATRAN 75 MG CAP PO SCH (10:53)
[2019-01-06] MEDS ORDERED: POTASSIUM CHLORIDE ER 20 MEQ TAB.ER PO STA (12:53)
--- NOTE | 2019-01-06 14:39 | P.PN ---
Subjective Progress Note Date: 01/06/19 This is a 73-year-old female patient of Dr Jones, Dr. Rasmussen, Dr. Littlejohn. She has underlying history of epilepsy, neurofibromatosis, COPD, CAD, chronic atrial fibrillation on Pradaxa, hypertension, hyperlipidemia, active tobacco use and dependence, hypothyroidism. She had a recent hospitalization in December and treated for acute diastolic heart failure and there was concern for underlying coronary artery disease and patient came back in for heart catheterization as an outpatient on January 01 that found mild nonobstructing coronary artery disease involving the left circumflex and ramus intermedius coronary arteries. Recommendations were to maximize medical treatment and aggressive cholesterol control. She had GI symptoms for which she is scheduled for EGD with Dr. Beebe. Echocardiogram from December 2017 reveals EF of 55-60% with mild concentric left ventricular hypertrophy, LA severely dilated greater than 40, mild aortic valve sclerosis, trace mitral regurgitation, mild tricuspid regurgitation Patient apparently is having trouble with falling at home. She states she was at Dr. Jones's office yesterday. Patient is quite drowsy and a poor historian. Patient came into [facility] emergency center for evaluation. Initial vital signs were temperature 97.3, pulse 74, blood pressure 124/66 and pulse ox on her percent. EKG was A. fib at rate of 57. White count normal, hemoglobin 16.3, platelet count 191. Sodium 133, potassium 3.4, chloride 90 CO2 32, BUN 41 and creatinine 1.53. Blood sugar 100. Troponin 0.039. TSH 2.200. Lactic acid 1.7. Urinalysis was clear, blood small, nitrate and leukoesterase negative. Chest x-ray reveals cardiomegaly with chronic parenchymal changes without acute pulmonary process. CT of the brain and C- spine showed no acute fracture dislocation of the cervical spine. No acute intracranial hemorrhage or midline shift. Resolving anterior frontal hematoma noted. Patient will be started on IV fluids and home medications resumed, cardiology consult requested and monitor renal function. Noted the patient was given IV Ativan last night for insomnia which is contributing to her mental status changes. 01/06: Patient has been seen by cardiology with recommendations to continue current medications and plan for follow-up with Dr. Rasmussen in the office. Patient is scheduled for EGD on Friday with Dr. Chavez and Pradaxa will be on hold. Patient states that she walked to the bathroom today and out into the hallway. She states she was a little off balance but denies any dizziness. She denies any shortness of breath or abdominal pain. Potassium 3.3 will be replaced. Repeat BUN is at 28 and creatinine 1.17. CBC within normal limits. Triglycerides 106, cholesterol 123, LDL 59, HDL 43. PT has recommended subacute rehab and patient will go to the [facility] or [facility]. Anticipate she will be ready for discharge by tomorrow. She'll be continued on IV fluids for several more hours at reduced rate of 50 mL per hour. Review Of Systems: Constitutional: No fever, no chills, no night sweats. No weight change. Reports weakness, fatigue or lethargy. No daytime sleepiness. EENT: No headache. No blurred vision or double vision, no loss of vision. No loss of Hearing, no ringing in the ears, no dizziness. No nasal drainage or congestion. No epistaxis. No sore throat. Lungs: No shortness of breath, cough, no sputum production. No wheezing. Cardiovascular: No chest pain, no lower extremity edema. No palpitations. No paroxysmal nocturnal dyspnea. No orthopnea. No lightheadedness or dizziness. No syncopal episodes. Abdominal: No abdominal pain. No nausea, vomiting. No diarrhea. No constipation. No bloody or tarry stools.. No loss of appetite. Genitourinary: No dysuria, increased frequency, urgency. No urinary retention. Musculoskeletal: No myalgias. No muscle weakness, no gait dysfunction, no frequent falls. No back pain. No neck pain. Integumentary: No wounds, no lesions. No rash or pruritus. No unusual bruising. No change in hair or nails. Neurologic: No aphasia. No facial droop. No change in mentation. No head injury. No headache. No paralysis. No paresthesia. Reports balance change. Psychiatric: No depression. No anxiety. No mood swings. Endocrine: No abnormal blood sugars. No weight change. No excessive sweating or thirst. No cold intolerance. No weight change. Objective - Vital Signs Vital signs: Vital Signs Temp 96.0 F L 01/06/19 12:00 Pulse 67 01/06/19 12:00 Resp 18 01/06/19 12:00 BP 115/68 01/06/19 12:00 Pulse Ox 97 01/06/19 12:00 Intake & Output 01/05/19 01/06/19 01/06/19 18:59 06:59 18:59 Intake Total 1150 1030 Balance 1150 1030 Weight 56 kg 56 kg Intake: Intake, IV Titration 700 800 Amount Sodium Chloride 0.9% 1, 700 800 000 ml @ 100 mls/hr IV . Q10H TANA Rx#:[id number] Oral 450 230 Other: Voiding Method Bedside Commode # Voids 1 1 2 - Exam Gen: This is a 73-year-old female. Patient is on the ER stretcher and is quite lethargic, able to follow instructions but slow to respond. HEENT: Head is atraumatic, normocephalic. Pupils equal, round. Sclerae is anicteric. Conjunctiva pink. Mucous members of the mouth are somewhat dry. NECK: Supple. No JVD. No lymphadenopathy. No thyromegaly. LUNGS: Diminished with crackles bilaterally. No intercostal retractions. HEART: Irregularly irregular with a systolic murmur. ABDOMEN: Soft. Bowel sounds are present. No masses. No tenderness. EXTREMITIES: No pedal edema. No calf tenderness. Dorsalis pedis +2 bilaterally. Significant ecchymosis to the right wrist at site of heart catheterization. NEUROLOGICAL: Patient is awake, alert and oriented x3. Cranial nerves 2 through 12 are grossly intact. - Labs CBC & Chem 7: 01/06/19 05:10 01/06/19 05:10 Labs: Abnormal Lab Results - Last 24 Hours (Table) 01/06/19 Range/Units 05:10 Potassium 3.3 L (3.5-5.1) mmol/L BUN 28 H (7-17) mg/dL Creatinine 1.17 H (0.52-1.04) mg/dL Assessment and Plan Plan: 1. Acute kidney injury secondary to dehydration and recent heart catheterization. IV fluids decreased to 50 mL per hour. Recheck kidney function in the morning along with electrolytes. Avoid nephrotoxic agents. 2. Abnormal troponin. Repeat ordered. Echocardiogram as above. Cardiology on consult. 3. Hypotension, generalized weakness and metabolic encephalopathy secondary to dehydration, acute kidney injury and Ativan. Continue IV fluids 50 mL per hour. 4. Chronic atrial fibrillation. Hold Pradaxa for EGD scheduled on Friday. Continue digoxin 125 g daily, aspirin 81 mg daily, Lopressor 50 mg twice daily. 5. Known history of epilepsy. Continue gabapentin 600 mg 3 times daily. 6. Hypertension. Continue Lopressor. 7. Hyperlipidemia. Continue simvastatin 80 mg at bedtime. 8. Neuropathy. Continue gabapentin 600 mg orally tid. 9. Hypothyroidism. Continue Synthroid 50 g daily. TSH 1.910. 10. COPD. Continue Symbicort twice daily and DuoNeb treatments as needed. 11. Chronic diastolic heart failure. Lasix is on hold. Continue Lopressor. 12. Recent weight loss with COPD, active tobacco use. CAT scan of the chest ordered. 13. Metabolic encephalopathy with mild confusion of most likely secondary to combination of Ativan and acute kidney injury. 14. generalized anxiety disorder. Continue Cymbalta 60 mg daily, gabapentin 600 mg 3 times daily. 15. GI prophylaxis. Pepcid. 16. DVT prophylaxis.David hose knee-high. Discharge plan: Subacute rehab on . Impression and plan of care have been directed as dictated by the signing physician. Re Saeed nurse practitioner acting as scribe for signing physician.
[2019-01-06] MEDS: ATORVASTATIN 40 MG TAB PO SCH (20:17)
[2019-01-07] MEDS: LEVOTHYROXINE 50 MCG TAB PO SCH (06:35)
[2019-01-07] MEDS: SYMBICORT 160-4.5 MCG INHALER INHALATION SCH ×2 (08:18→19:48)
[2019-01-07] MEDS: GABAPENTIN 300 MG CAP PO SCH ×3 (08:45→20:54)
[2019-01-07] MEDS: METOPROLOL TARTRATE 50 MG TAB PO SCH ×2 (08:45→20:43)
[2019-01-07] MEDS: DIGOXIN 125 MCG TAB PO SCH (08:46)
[2019-01-07] MEDS: clonazePAM 1 MG TAB PO SCH ×2 (08:46→20:44)
[2019-01-07] MEDS: PANTOPRAZOLE 40 MG TABLET PO SCH (08:46)
[2019-01-07] MEDS: FUROSEMIDE 40 MG TAB PO SCH ×2 (08:46→16:45)
[2019-01-07] MEDS: DULoxetine HCL 60 MG CAPSULE.DR PO SCH (08:46)
[2019-01-07] MEDS: ASPIRIN 81 MG PO SCH (08:46)
--- NOTE | 2019-01-07 08:58 | P.DS ---
Providers Date of admission: 01/04/19 19:34 Expected date of discharge: 01/07/19 Attending physician: Leon Resendiz Consults: 01/05/19 10:55 Consult Physician Routine Consulting Provider: Nakul Abel Consult Reason/Comments: elevated troponins, hypotension Do you want consulting provider notified?: Yes Primary care physician: [facility] Course: This is a 73-year-old female patient of Dr Jones, Dr. Rasmussen, Dr. Littlejohn. She has underlying history of epilepsy, neurofibromatosis, COPD, CAD, chronic atrial fibrillation on Pradaxa, hypertension, hyperlipidemia, active tobacco use and dependence, hypothyroidism. She had a recent hospitalization in December and treated for acute diastolic heart failure and there was concern for underlying coronary artery disease and patient came back in for heart catheterization as an outpatient on January 01 that found mild nonobstructing coronary artery disease involving the left circumflex and ramus intermedius coronary arteries. Recommendations were to maximize medical treatment and aggressive cholesterol control. She had GI symptoms for which she is scheduled for EGD with Dr. Beebe. Echocardiogram from December 2017 reveals EF of 55-60% with mild concentric left ventricular hypertrophy, LA severely dilated greater than 40, mild aortic valve sclerosis, trace mitral regurgitation, mild tricuspid regurgitation Patient apparently is having trouble with falling at home. She states she was at Dr. Jones's office yesterday. Patient is quite drowsy and a poor historian. Patient came into [facility] emergency center for evaluation. Initial vital signs were temperature 97.3, pulse 74, blood pressure 124/66 and pulse ox on her percent. EKG was A. fib at rate of 57. White count normal, hemoglobin 16.3, platelet count 191. Sodium 133, potassium 3.4, chloride 90 CO2 32, BUN 41 and creatinine 1.53. Blood sugar 100. Troponin 0.039. TSH 2.200. Lactic acid 1.7. Urinalysis was clear, blood small, nitrate and leukoesterase negative. Chest x-ray reveals cardiomegaly with chronic parenchymal changes without acute pulmonary process. CT of the brain and C- spine showed no acute fracture dislocation of the cervical spine. No acute intracranial hemorrhage or midline shift. Resolving anterior frontal hematoma noted. Patient will be started on IV fluids and home medications resumed, cardiology consult requested and monitor renal function. Noted the patient was given IV Ativan last night for insomnia which is contributing to her mental status changes. 01/06: Patient has been seen by cardiology with recommendations to continue current medications and plan for follow-up with Dr. Rasmussen in the office. Patient is scheduled for EGD on Friday with Dr. Chavez and Pradaxa will be on hold. Patient states that she walked to the bathroom today and out into the hallway. She states she was a little off balance but denies any dizziness. She denies any shortness of breath or abdominal pain. Potassium 3.3 will be replaced. Repeat BUN is at 28 and creatinine 1.17. CBC within normal limits. Triglycerides 106, cholesterol 123, LDL 59, HDL 43. PT has recommended subacute rehab and patient will go to the [facility] or [facility]. Anticipate she will be ready for discharge by tomorrow. She'll be continued on IV fluids for several more hours at reduced rate of 50 mL per hour. 01/07: Patient has been afebrile, blood pressure 98/54 to 129/58, heart rate running in the 70s, pulse ox 98% on room air. IV fluids have been discontinued. Patient is willing to go to [facility] but apparently daughter wanted her to go to [facility]. Case management and clinical social work therapist are working on discharge plan. Patient will be discharged today once insurance authorization is obtained. Discharge diagnoses: 1. Acute kidney injury secondary to dehydration and recent heart catheterization. 2. Abnormal troponin secondary to recent heart catheterization. 3. Hypotension, generalized weakness and metabolic encephalopathy secondary to combination of dehydration, acute kidney injury and Ativan. 4. Chronic atrial fibrillation. Hold Pradaxa for EGD scheduled on Friday. 5. Known history of epilepsy. 6. Hypertension. 7. Hyperlipidemia. 8. Neuropathy. 9. Hypothyroidism. 10. COPD. 11. Chronic diastolic heart failure. 12. Recent weight loss with COPD, active tobacco use. CAT scan of the chest reveals gastric antral fold thickening related to gastritis, infiltrating neoplasm or peristalsis. Sub-3 mm pulmonary nodules to have follow-up CAT scan in 12 months ordered. Mild to moderate emphysematous change. Patient is scheduled for EGD on Friday 13. Metabolic encephalopathy with mild confusion of most likely secondary to combination of Ativan and acute kidney injury. 14. Generalized anxiety disorder. Discharge plan: Subacute rehab. Impression and plan of care have been directed as dictated by the signing physician. Re Saeed nurse practitioner acting as scribe for signing physician. Patient Condition at Discharge: Good Plan - Discharge Summary Discharge Rx Participant: Yes New Discharge Prescriptions: Continue DULoxetine HCL [Cymbalta] 60 mg PO DAILY Digoxin [Digox] 125 mcg PO DAILY Aspirin 81 mg PO DAILY Budesonide/Formoterol Fumarate [Symbicort 160-4.5 Mcg Inhaler] 2 puff INHALATION RT-BID Levothyroxine Sodium [Synthroid] 50 mcg PO DAILY Simvastatin [Zocor] 80 mg PO HS Pantoprazole Sodium [Protonix] 40 mg PO DAILY #30 tablet. Furosemide [Lasix] 40 mg PO BID@0800,1200 Metoprolol Tartrate [Lopressor] 50 mg PO BID clonazePAM [KlonoPIN] 1 mg PO BID Gabapentin [Neurontin] 600 mg PO TID #9 tablet Discontinued Dabigatran [Pradaxa] 150 mg PO BID Discharge Medication List DULoxetine HCL [Cymbalta] 60 mg PO DAILY 07/27/14 [History] Digoxin [Digox] 125 mcg PO DAILY 09/01/14 [History] Aspirin 81 mg PO DAILY 11/29/16 [History] Budesonide/Formoterol Fumarate [Symbicort 160-4.5 Mcg Inhaler] 2 puff INHALATION RT-BID 12/23/18 [History] Levothyroxine Sodium [Synthroid] 50 mcg PO DAILY 12/23/18 [History] Simvastatin [Zocor] 80 mg PO HS 12/23/18 [History] Pantoprazole Sodium [Protonix] 40 mg PO DAILY #30 tablet. 12/25/18 [Rx] Furosemide [Lasix] 40 mg PO BID@0800,1200 12/28/18 [History] Metoprolol Tartrate [Lopressor] 50 mg PO BID 01/01/19 [History] clonazePAM [KlonoPIN] 1 mg PO BID 01/04/19 [History] Gabapentin [Neurontin] 600 mg PO TID #9 tablet 01/07/19 [Rx] Follow up Appointment(s)/Referral(s): Ed Rasmussen MD [STAFF PHYSICIAN] - 1 Week Rafy Jones MD [Primary Care Provider] - 1 Week (at [facility]) Discharge Disposition: TRANSFER TO SNF/ECF
--- NOTE | 2019-01-07 11:32 | P.PN ---
Subjective Progress Note Date: 01/07/19 This is a 73-year-old female patient of Dr Jones, Dr. Rasmussen, Dr. Littlejohn. She has underlying history of epilepsy, neurofibromatosis, COPD, CAD, chronic atrial fibrillation on Pradaxa, hypertension, hyperlipidemia, active tobacco use and dependence, hypothyroidism. She had a recent hospitalization in December and treated for acute diastolic heart failure and there was concern for underlying coronary artery disease and patient came back in for heart catheterization as an outpatient on January 01 that found mild nonobstructing coronary artery disease involving the left circumflex and ramus intermedius coronary arteries. Recommendations were to maximize medical treatment and aggressive cholesterol control. She had GI symptoms for which she is scheduled for EGD with Dr. Beebe. Echocardiogram from December 2017 reveals EF of 55-60% with mild concentric left ventricular hypertrophy, LA severely dilated greater than 40, mild aortic valve sclerosis, trace mitral regurgitation, mild tricuspid regurgitation Patient apparently is having trouble with falling at home. She states she was at Dr. Jones's office yesterday. Patient is quite drowsy and a poor historian. Patient came into [facility] emergency center for evaluation. Initial vital signs were temperature 97.3, pulse 74, blood pressure 124/66 and pulse ox on her percent. EKG was A. fib at rate of 57. White count normal, hemoglobin 16.3, platelet count 191. Sodium 133, potassium 3.4, chloride 90 CO2 32, BUN 41 and creatinine 1.53. Blood sugar 100. Troponin 0.039. TSH 2.200. Lactic acid 1.7. Urinalysis was clear, blood small, nitrate and leukoesterase negative. Chest x-ray reveals cardiomegaly with chronic parenchymal changes without acute pulmonary process. CT of the brain and C- spine showed no acute fracture dislocation of the cervical spine. No acute intracranial hemorrhage or midline shift. Resolving anterior frontal hematoma noted. Patient will be started on IV fluids and home medications resumed, cardiology consult requested and monitor renal function. Noted the patient was given IV Ativan last night for insomnia which is contributing to her mental status changes. 01/06: Patient has been seen by cardiology with recommendations to continue current medications and plan for follow-up with Dr. Rasmussen in the office. Patient is scheduled for EGD on Friday with Dr. Chavez and Pradaxa will be on hold. Patient states that she walked to the bathroom today and out into the hallway. She states she was a little off balance but denies any dizziness. She denies any shortness of breath or abdominal pain. Potassium 3.3 will be replaced. Repeat BUN is at 28 and creatinine 1.17. CBC within normal limits. Triglycerides 106, cholesterol 123, LDL 59, HDL 43. PT has recommended subacute rehab and patient will go to the [facility] or [facility]. Anticipate she will be ready for discharge by tomorrow. She'll be continued on IV fluids for several more hours at reduced rate of 50 mL per hour. 01/07: Patient has been afebrile, blood pressure 98/54 to 129/58, heart rate running in the 70s, pulse ox 98% on room air. IV fluids have been discontinued. Patient is willing to go to [facility] but apparently daughter wanted her to go to [facility]. Case management and social media editor are working on discharge plan. Patient will be discharged today once insurance authorization is obtained. Review Of Systems: Constitutional: No fever, no chills, no night sweats. No weight change. Reports weakness, fatigue or lethargy. No daytime sleepiness. EENT: No headache. No blurred vision or double vision, no loss of vision. No loss of Hearing, no ringing in the ears, no dizziness. No nasal drainage or congestion. No epistaxis. No sore throat. Lungs: No shortness of breath, cough, no sputum production. No wheezing. Cardiovascular: No chest pain, no lower extremity edema. No palpitations. No paroxysmal nocturnal dyspnea. No orthopnea. No lightheadedness or dizziness. No syncopal episodes. Abdominal: No abdominal pain. No nausea, vomiting. No diarrhea. No constipation. No bloody or tarry stools.. No loss of appetite. Genitourinary: No dysuria, increased frequency, urgency. No urinary retention. Musculoskeletal: No myalgias. No muscle weakness, no gait dysfunction, no frequent falls. No back pain. No neck pain. Integumentary: No wounds, no lesions. No rash or pruritus. No unusual bruising. No change in hair or nails. Neurologic: No aphasia. No facial droop. No change in mentation. No head injury. No headache. No paralysis. No paresthesia. Reports balance change. Psychiatric: No depression. No anxiety. No mood swings. Endocrine: No abnormal blood sugars. No weight change. No excessive sweating or thirst. No cold intolerance. No weight change. Objective - Vital Signs Vital signs: Vital Signs Temp 98.0 F 01/07/19 08:00 Pulse 73 01/07/19 08:00 Resp 18 01/07/19 08:00 BP 112/62 01/07/19 08:00 Pulse Ox 92 L 01/07/19 08:00 Intake & Output 01/06/19 01/07/19 01/07/19 18:59 06:59 18:59 Intake Total 1030 Balance 1030 Weight 56 kg 55.1 kg Intake: Intake, IV Titration 800 Amount Sodium Chloride 0.9% 1, 800 000 ml @ 50 mls/hr IV . Q20H TANA Rx#:[id number] Oral 230 Other: Voiding Method Toilet # Voids 2 1 - Exam Gen: This is a 73-year-old female. Patient is in recliner and appears to be comfortable. HEENT: Head is atraumatic, normocephalic. Pupils equal, round. Sclerae is anicteric. Conjunctiva pink. Mucous members of the mouth are somewhat dry. NECK: Supple. No JVD. No lymphadenopathy. No thyromegaly. LUNGS: Diminished with crackles bilaterally. No intercostal retractions. HEART: Irregularly irregular with a systolic murmur. ABDOMEN: Soft. Bowel sounds are present. No masses. No tenderness. EXTREMITIES: No pedal edema. No calf tenderness. Dorsalis pedis +2 bilaterally. Significant ecchymosis to the right wrist at site of heart catheterization. NEUROLOGICAL: Patient is awake, alert and oriented x3. Cranial nerves 2 through 12 are grossly intact. - Labs CBC & Chem 7: 01/06/19 05:10 01/06/19 05:10 Assessment and Plan Plan: 1. Acute kidney injury secondary to dehydration and recent heart catheterization. IV fluids discontinued. Avoid nephrotoxic agents. 2. Abnormal troponin. Repeat ordered. Echocardiogram as above. Cardiology on consult. 3. Hypotension, generalized weakness and metabolic encephalopathy secondary to dehydration, acute kidney injury and Ativan. Continue IV fluids 50 mL per hour. 4. Chronic atrial fibrillation. Hold Pradaxa for EGD scheduled on Friday. Continue digoxin 125 g daily, aspirin 81 mg daily, Lopressor 50 mg twice daily. 5. Known history of epilepsy. Continue gabapentin 600 mg 3 times daily. 6. Hypertension. Continue Lopressor. 7. Hyperlipidemia. Continue simvastatin 80 mg at bedtime. 8. Neuropathy. Continue gabapentin 600 mg orally tid. 9. Hypothyroidism. Continue Synthroid 50 g daily. TSH 1.910. 10. COPD. Continue Symbicort twice daily and DuoNeb treatments as needed. 11. Chronic diastolic heart failure. Lasix is on hold. Continue Lopressor. 12. Recent weight loss with COPD, active tobacco use. CAT scan of the chest was done on last admission. 13. Metabolic encephalopathy with mild confusion of most likely secondary to combination of Ativan and acute kidney injury. 14. Generalized anxiety disorder. Continue Cymbalta 60 mg daily, gabapentin 600 mg 3 times daily. 15. GI prophylaxis. Pepcid. 16. DVT prophylaxis.David hose knee-high. Discharge plan: [facility] or [facility] once arrangements are completed Impression and plan of care have been directed as dictated by the signing physician. Re Saeed nurse practitioner acting as scribe for signing physician.
--- NOTE | 2019-01-07 12:09 | P.PN ---
Subjective Progress Note Date: 01/07/19 This is a 73-year-old female who follows regularly with Dr. Moreno in the office. She has a known history of chronic persistent atrial fibrillation, hypertension, hyperlipidemia, history of seizures, nicotine dependence, neurofibromatosis, prior TIA, fibromyalgia patient was recently in the hospital with symptoms of weakness, and she again presents to the hospital with symptoms of weakness, and falls. Patient did have a cardiac catheterization performed by Dr. Mroeno on January 01 which revealed mild nonobstructive coronary artery disease in the circumflex and ramus intermediate. Chest x-ray on arrival here showed cardiomegaly and chronic parenchymal changes without any acute pulmonary process. EKG showed atrial fibrillation with a slow ventricular response. Blood pressure this morning 138/70 with a heart rate in the 60s. White blood cell count 6.6, 4.6 this morning, hemoglobin 16.3 on admission, 13.6 this morning. Platelet count 171. Sodium on admission 133 potassium 3.4, BUN 41 and creatinine 1.5. Troponin 0.03, 0.04, 0.03. TSH 2.2. This morning's labs, sodium 137, potassium 3.3, BUN [address] of the brain and C- spine showed no acute fracture or dislocation of the spine, no acute intracranial hemorrhage or midline shift. Resolving anterior frontal hematoma noted. Patient was initiated on IV fluids on presentation here, creatinine has improved this morning. 01/07/2019 Patient was seen and examined this morning, still feels weak however stronger than when she came. Her primary care doctor is recommending that she go to rehab she is reluctant however in agreement. Blood pressure 112/60 with a heart rate in the 70s, 92% on room air. White blood cell count 4.6, hemoglobin 13.6, platelet count 171. Sodium 137, potassium 3.3, BUN 28, creatinine 1.1. Objective - Vital Signs Vital signs: Vital Signs Temp 98.0 F 01/07/19 08:00 Pulse 73 01/07/19 08:00 Resp 18 01/07/19 08:00 BP 112/62 01/07/19 08:00 Pulse Ox 92 L 01/07/19 08:00 Intake & Output 01/06/19 01/07/19 01/07/19 18:59 06:59 18:59 Intake Total 1030 240 Balance 1030 240 Weight 56 kg 55.1 kg Intake: Intake, IV Titration 800 Amount Sodium Chloride 0.9% 1, 800 000 ml @ 50 mls/hr IV . Q20H [facility] Rx#:[id number] Oral 230 240 Other: Voiding Method Toilet # Voids 2 1 - Exam PHYSICAL EXAMINATION: GENERAL: 73-year-old female, very sleepy. In no acute distress at the time of my examination HEENT: Head is atraumatic, normocephalic. Pupils equal, round. Sclera anicteric. Conjunctiva are clear. Mucous membranes of the mouth are moist. Neck is supple. There is no elevated jugular venous pressure.] bruit is heard. HEART EXAMINATION: Heart S1 and S2 irregularly irregular a systolic murmur is heard. CHEST EXAMINATION: Lungs are clear to auscultation and precussion. No chest wall tenderness is noted on palpation or with deep breathing. ABDOMEN: Soft, nontender. Bowel sounds are heard. No organomegaly noted. EXTREMITIES: 2+ peripheral pulses with no evidence of peripheral edema and no calf tenderness noted. There is ecchymosis noted to the right wrist. NEUROLOGIC patient is awake, alert and oriented 3 . . - Labs CBC & Chem 7: 01/06/19 05:10 01/06/19 05:10 Assessment and Plan Plan: Assessment and plan #1 symptoms of progressive weakness, could be secondary to acute kidney injury from recent cardiac catheterization. Patient did receive IV fluids at 100 mL per hour, creatinine improved this morning. #2 abnormal troponin, not consistent with acute coronary syndrome with no significant rise and fall pattern. #3 chronic persistent atrial fibrillation #4 epilepsy #5 hypertension, blood pressure low on admission here, stable this #6 hyperlipidemia #7 neuropathy #8 neuro fibromatosis #9 hypothyroidism #10 COPD #11 anxiety #12 recent cardiac catheterization that did not reveal any significant obstructive coronary artery disease, medical therapy advised. Plan From cardiology's perspective, patient may be able to be discharged to [facility] for rehab. We will make her a follow-up appointment with Dr. Moreno in the office. DNP note has been reviewed, I agree with a documented findings and plan of care. Patient was seen and examined.
[2019-01-07] MEDS: ATORVASTATIN 40 MG TAB PO SCH (20:43)
[2019-01-08] MEDS: LEVOTHYROXINE 50 MCG TAB PO SCH (05:40)
[2019-01-08] MEDS: SYMBICORT 160-4.5 MCG INHALER INHALATION SCH ×2 (07:43→19:47)
[2019-01-08] MEDS: DIGOXIN 125 MCG TAB PO SCH (08:59)
[2019-01-08] MEDS: METOPROLOL TARTRATE 50 MG TAB PO SCH ×2 (08:59→22:51)
[2019-01-08] MEDS ORDERED: SODIUM CHLORIDE 0.9% 500 ML 500 ML IV ONE (11:16)
[2019-01-08] MEDS: SODIUM CHLORIDE 0.9% 1,000 ML IV SCH ×2 (11:27→22:51)
[2019-01-08] MEDS ORDERED: PROPOFOL 10 MG/ML 20 ML VIAL IV ONE (14:17)
[2019-01-08] MEDS ORDERED: SODIUM CHLORIDE 0.9% 1,000 ML IV ONE (14:23)
--- NOTE | 2019-01-08 14:33 | P.PCN ---
Date of Procedure: 01/08/19 Procedure(s) Performed: BRIEF HISTORY: Patient is a 73-year-old, pleasant, white female, admitted to the hospital with progressive weakness, frequent falls and not feeling well. She was seen in the office by me a week ago for evaluation of epigastric pain and abnormal CAT scan of the chest that was done during her last hospitalization 2 weeks ago that showed thickening of the stomach/antrum. She is hence scheduled for an upper endoscopy to evaluate further. PROCEDURE PERFORMED: Esophagogastroduodenoscopy with biopsy. PREOPERATIVE DIAGNOSIS: Epigastric pain and abnormal CT of the chest showing thickened stomach. IV sedation per anesthesia. PROCEDURE: After informed consent was obtained, the patient was brought into the endoscopy unit. IV sedation was administered by Anesthesia under continuous monitoring. Initially the Olympus GIF-140 video endoscope was inserted into the mouth. Esophagus intubated without any difficulty. It was gradually advanced into the stomach and duodenum and carefully examined. The bulb had some duodenitis and the second part of the duodenum appeared normal. The scope at this time was withdrawn to the stomach, adequately insufflated with air, and upon careful examination, mucosa of the antrum, body, had diffuse gastritis and biopsies were done from this area. The cardia and the fundus appeared normal. The scope was then withdrawn into the esophagus. The GE junction was located at 39 cm from the incisors. There were linear erosions noted in the distal esophagus consistent with LA grade B reflux esophagitis. The rest of the esophagus appeared normal and the patie IMPRESSION: 1. Linear erosions in the distal esophagus consistent with LA grade B reflux esophagitis. 2. Diffuse gastritis and duodenitis. RECOMMENDATIONS: The findings of this examination were discussed with the patient . She was advised to follow with the biopsy results. She will be continued on Protonix 40 mg daily and diet will be advanced as tolerated..
--- NOTE | 2019-01-08 15:04 | P.PN ---
Subjective Progress Note Date: 01/08/19 This is a 73-year-old female patient of Dr Jones, Dr. Rasmussen, Dr. Littlejohn. She has underlying history of epilepsy, neurofibromatosis, COPD, CAD, chronic atrial fibrillation on Pradaxa, hypertension, hyperlipidemia, active tobacco use and dependence, hypothyroidism. She had a recent hospitalization in December and treated for acute diastolic heart failure and there was concern for underlying coronary artery disease and patient came back in for heart catheterization as an outpatient on January 01 that found mild nonobstructing coronary artery disease involving the left circumflex and ramus intermedius coronary arteries. Recommendations were to maximize medical treatment and aggressive cholesterol control. She had GI symptoms for which she is scheduled for EGD with Dr. Beebe. Echocardiogram from December 2017 reveals EF of 55-60% with mild concentric left ventricular hypertrophy, LA severely dilated greater than 40, mild aortic valve sclerosis, trace mitral regurgitation, mild tricuspid regurgitation Patient apparently is having trouble with falling at home. She states she was at Dr. Jones's office yesterday. Patient is quite drowsy and a poor historian. Patient came into [facility] emergency center for evaluation. Initial vital signs were temperature 97.3, pulse 74, blood pressure 124/66 and pulse ox on her percent. EKG was A. fib at rate of 57. White count normal, hemoglobin 16.3, platelet count 191. Sodium 133, potassium 3.4, chloride 90 CO2 32, BUN 41 and creatinine 1.53. Blood sugar 100. Troponin 0.039. TSH 2.200. Lactic acid 1.7. Urinalysis was clear, blood small, nitrate and leukoesterase negative. Chest x-ray reveals cardiomegaly with chronic parenchymal changes without acute pulmonary process. CT of the brain and C- spine showed no acute fracture dislocation of the cervical spine. No acute intracranial hemorrhage or midline shift. Resolving anterior frontal hematoma noted. Patient will be started on IV fluids and home medications resumed, cardiology consult requested and monitor renal function. Noted the patient was given IV Ativan last night for insomnia which is contributing to her mental status changes. 01/06: Patient has been seen by cardiology with recommendations to continue current medications and plan for follow-up with Dr. Rasmussen in the office. Patient is scheduled for EGD on Friday with Dr. Chavez and Pradaxa will be on hold. Patient states that she walked to the bathroom today and out into the hallway. She states she was a little off balance but denies any dizziness. She denies any shortness of breath or abdominal pain. Potassium 3.3 will be replaced. Repeat BUN is at 28 and creatinine 1.17. CBC within normal limits. Triglycerides 106, cholesterol 123, LDL 59, HDL 43. PT has recommended subacute rehab and patient will go to the [facility] or [facility]. Anticipate she will be ready for discharge by tomorrow. She'll be continued on IV fluids for several more hours at reduced rate of 50 mL per hour. 01/07: Patient has been afebrile, blood pressure 98/54 to 129/58, heart rate running in the 70s, pulse ox 98% on room air. IV fluids have been discontinued. Patient is willing to go to [facility] but apparently daughter wanted her to go to [facility]. Case management and criminal justice social worker are working on discharge plan. Patient will be discharged today once insurance authorization is obtained. 01/08: The patient was unable to be discharged yesterday as insurance authorization was not obtained. This morning, patient is found to have orthostatic positive vital signs and given IV fluid bolus followed by IV fluids. Patient underwent EGD with Dr. Chavez that found linear erosions in the distal esophagus consistent with LA grade B reflux esophagitis and diffuse gastritis and duodenitis. Biopsy was obtained. Recommendations for Protonix 40 mg daily and advance diet as tolerated. Patient has returned to the cardiac stepdown unit and her blood pressure is 85/59. IV fluids will be continued. No plan for discharge at this point. She was authorization remains pending anyway. Review Of Systems: Constitutional: No fever, no chills, no night sweats. No weight change. Reports weakness, fatigue or lethargy. No daytime sleepiness. EENT: No headache. No blurred vision or double vision, no loss of vision. No loss of Hearing, no ringing in the ears, no dizziness. No nasal drainage or congestion. No epistaxis. No sore throat. Lungs: No shortness of breath, cough, no sputum production. No wheezing. Cardiovascular: No chest pain, no lower extremity edema. No palpitations. No paroxysmal nocturnal dyspnea. No orthopnea. No lightheadedness or dizziness. No syncopal episodes. Abdominal: No abdominal pain. No nausea, vomiting. No diarrhea. No constipation. No bloody or tarry stools. Genitourinary: No dysuria, increased frequency, urgency. No urinary retention. Musculoskeletal: No myalgias. No muscle weakness, no gait dysfunction, no frequent falls. No back pain. No neck pain. Integumentary: No wounds, no lesions. No rash or pruritus. No unusual bruising. No change in hair or nails. Neurologic: No aphasia. No facial droop. No change in mentation. No head injury. No headache. No paralysis. No paresthesia. Reports balance change. Psychiatric: No depression. No anxiety. No mood swings. Endocrine: No abnormal blood sugars. No weight change. No excessive sweating or thirst. No cold intolerance. No weight change. Objective - Vital Signs Vital signs: Vital Signs Temp 97.9 F 01/08/19 08:00 Pulse 75 01/08/19 10:50 Resp 16 01/08/19 10:50 BP 112/73 01/08/19 10:50 Pulse Ox 96 01/08/19 10:50 Intake & Output 01/07/19 01/08/19 01/08/19 18:59 06:59 18:59 Intake Total 240 Balance 240 Weight 55.2 kg Intake: Oral 240 Other: Voiding Method Toilet Toilet # Voids 0 1 1 - Exam Gen: This is a 73-year-old female. Patient is found ambulating with PT in her room but is very weak. HEENT: Head is atraumatic, normocephalic. Pupils equal, round. Sclerae is anicteric. Conjunctiva pink. Mucous members of the mouth are somewhat dry. NECK: Supple. No JVD. No lymphadenopathy. No thyromegaly. LUNGS: Diminished with crackles bilaterally. No intercostal retractions. HEART: Irregularly irregular with a systolic murmur. ABDOMEN: Soft. Bowel sounds are present. No masses. No tenderness. EXTREMITIES: No pedal edema. No calf tenderness. Dorsalis pedis +2 bilaterally. NEUROLOGICAL: Patient is awake, alert and oriented x3. Cranial nerves 2 through 12 are grossly intact. - Labs CBC & Chem 7: 01/06/19 05:10 01/06/19 05:10 Assessment and Plan Plan: 1. Acute kidney injury secondary to dehydration and recent heart catheterization. IV fluids continued. Avoid nephrotoxic agents. 2. Abnormal troponin. Repeat ordered. Echocardiogram as above. Cardiology on consult. 3. Hypotension, generalized weakness and metabolic encephalopathy secondary to dehydration, acute kidney injury and Ativan. Continue IV fluids 50 mL per hour. Patient is status post IV fluid bolus today 4. Chronic atrial fibrillation. Hold Pradaxa for EGD scheduled on Friday. Continue digoxin 125 g daily, aspirin 81 mg daily, Lopressor 50 mg twice daily. 5. Known history of epilepsy. Continue gabapentin 600 mg 3 times daily. 6. Hypertension. Continue Lopressor. 7. Hyperlipidemia. Continue simvastatin 80 mg at bedtime. 8. Neuropathy. Continue gabapentin 600 mg orally tid. 9. Hypothyroidism. Continue Synthroid 50 g daily. TSH 1.910. 10. COPD. Continue Symbicort twice daily and DuoNeb treatments as needed. 11. Chronic diastolic heart failure. Lasix is on hold. Continue Lopressor. 12. Recent weight loss with COPD, active tobacco use. CAT scan of the chest was done on last admission. 13. Metabolic encephalopathy with mild confusion of most likely secondary to combination of Ativan and acute kidney injury. 14. Generalized anxiety disorder. Continue Cymbalta 60 mg daily, gabapentin 600 mg 3 times daily. 15. GI prophylaxis. Pepcid. 16. DVT prophylaxis.David hose knee-high. 17. Distal esophageal esophagitis, gastritis and duodenitis. Continue Protonix Discharge plan: on Friday Impression and plan of care have been directed as dictated by the signing physician. Re Saeed nurse practitioner acting as scribe for signing physician.
[2019-01-08] MEDS: FUROSEMIDE 40 MG TAB PO SCH ×2 (15:37→15:38)
[2019-01-08] MEDS: clonazePAM 1 MG TAB PO SCH ×2 (15:37→21:44)
[2019-01-08] MEDS: DULoxetine HCL 60 MG CAPSULE.DR PO SCH (15:38)
[2019-01-08] MEDS: GABAPENTIN 300 MG CAP PO SCH ×3 (15:38→21:44)
[2019-01-08] MEDS: ASPIRIN 81 MG PO SCH (17:37)
[2019-01-08] MEDS: PANTOPRAZOLE 40 MG TABLET PO SCH (17:37)
[2019-01-08] MEDS ORDERED: DICLOFENAC SODIUM GEL 100 GM TUBE TOPICAL PRN (21:39)
[2019-01-08] MEDS: ATORVASTATIN 40 MG TAB PO SCH (21:44)
[2019-01-09] MEDS: MORPHINE SULFATE 4 MG/ML SYRINGE IVP PRN (00:25)
[2019-01-09] MEDS: LEVOTHYROXINE 50 MCG TAB PO SCH (06:49)
[2019-01-09] MEDS: SYMBICORT 160-4.5 MCG INHALER INHALATION SCH ×2 (07:47→21:15)
[2019-01-09] MEDS: PANTOPRAZOLE 40 MG TABLET PO SCH (10:00)
[2019-01-09] MEDS: ASPIRIN 81 MG PO SCH (10:00)
[2019-01-09] MEDS: clonazePAM 1 MG TAB PO SCH ×2 (10:00→21:04)
[2019-01-09] MEDS: DULoxetine HCL 60 MG CAPSULE.DR PO SCH (10:00)
[2019-01-09] MEDS: DIGOXIN 125 MCG TAB PO SCH (10:00)
[2019-01-09] MEDS: GABAPENTIN 400 MG CAP PO SCH ×3 (10:00→21:04)
[2019-01-09] MEDS: METOPROLOL TARTRATE 50 MG TAB PO SCH ×2 (10:00→21:04)
[2019-01-09] MEDS: FUROSEMIDE 40 MG TAB PO SCH ×2 (10:01→12:06)
[2019-01-09] MEDS: ACETAMINOPHEN TAB 325 MG TAB PO SCH ×2 (10:01→21:04)
[2019-01-09 10:03] LABS: Calcium 8.2 mg/dL (8.4-10.2); Potassium 3.5 mmol/L (3.5-5.1)
[2019-01-09] MEDS: SODIUM CHLORIDE 0.9% 1,000 ML IV SCH (10:05)
--- NOTE | 2019-01-09 13:16 | P.PN ---
Subjective Progress Note Date: 01/09/19 This is a 73-year-old female patient of Dr Jones, Dr. Rasmussen, Dr. Littlejohn. She has underlying history of epilepsy, neurofibromatosis, COPD, CAD, chronic atrial fibrillation on Pradaxa, hypertension, hyperlipidemia, active tobacco use and dependence, hypothyroidism. She had a recent hospitalization in December and treated for acute diastolic heart failure and there was concern for underlying coronary artery disease and patient came back in for heart catheterization as an outpatient on January 01 that found mild nonobstructing coronary artery disease involving the left circumflex and ramus intermedius coronary arteries. Recommendations were to maximize medical treatment and aggressive cholesterol control. She had GI symptoms for which she is scheduled for EGD with Dr. Beebe. Echocardiogram from December 2017 reveals EF of 55-60% with mild concentric left ventricular hypertrophy, LA severely dilated greater than 40, mild aortic valve sclerosis, trace mitral regurgitation, mild tricuspid regurgitation Patient apparently is having trouble with falling at home. She states she was at Dr. Jones's office yesterday. Patient is quite drowsy and a poor historian. Patient came into [facility] emergency center for evaluation. Initial vital signs were temperature 97.3, pulse 74, blood pressure 124/66 and pulse ox on her percent. EKG was A. fib at rate of 57. White count normal, hemoglobin 16.3, platelet count 191. Sodium 133, potassium 3.4, chloride 90 CO2 32, BUN 41 and creatinine 1.53. Blood sugar 100. Troponin 0.039. TSH 2.200. Lactic acid 1.7. Urinalysis was clear, blood small, nitrate and leukoesterase negative. Chest x-ray reveals cardiomegaly with chronic parenchymal changes without acute pulmonary process. CT of the brain and C- spine showed no acute fracture dislocation of the cervical spine. No acute intracranial hemorrhage or midline shift. Resolving anterior frontal hematoma noted. Patient will be started on IV fluids and home medications resumed, cardiology consult requested and monitor renal function. Noted the patient was given IV Ativan last night for insomnia which is contributing to her mental status changes. 01/06: Patient has been seen by cardiology with recommendations to continue current medications and plan for follow-up with Dr. Rasmussen in the office. Patient is scheduled for EGD on Friday with Dr. Chavez and Pradaxa will be on hold. Patient states that she walked to the bathroom today and out into the hallway. She states she was a little off balance but denies any dizziness. She denies any shortness of breath or abdominal pain. Potassium 3.3 will be replaced. Repeat BUN is at 28 and creatinine 1.17. CBC within normal limits. Triglycerides 106, cholesterol 123, LDL 59, HDL 43. PT has recommended subacute rehab and patient will go to the [facility] or [facility]. Anticipate she will be ready for discharge by tomorrow. She'll be continued on IV fluids for several more hours at reduced rate of 50 mL per hour. 01/07: Patient has been afebrile, blood pressure 98/54 to 129/58, heart rate running in the 70s, pulse ox 98% on room air. IV fluids have been discontinued. Patient is willing to go to [facility] but apparently daughter wanted her to go to [facility]. Case management and high school social studies tutor are working on discharge plan. Patient will be discharged today once insurance authorization is obtained. 01/08: The patient was unable to be discharged yesterday as insurance authorization was not obtained. This morning, patient is found to have orthostatic positive vital signs and given IV fluid bolus followed by IV fluids. Patient underwent EGD with Dr. Chavez that found linear erosions in the distal esophagus consistent with LA grade B reflux esophagitis and diffuse gastritis and duodenitis. Biopsy was obtained. Recommendations for Protonix 40 mg daily and advance diet as tolerated. Patient has returned to the cardiac stepdown unit and her blood pressure is 85/59. IV fluids will be continued. No plan for discharge at this point. She was authorization remains pending anyway. 01/09: Patient is complaining of feeling achy all over hold onto her shoulders. A call was placed last night and Voltaren gel was ordered but patient did not get any relief from this and she received morphine. Klonopin was to be changed to at bedtime only which will be done now. Gabapentin also decreased from 600- 400 mg 3 times daily. IV fluids will be stopped and patient to increase oral intake. Tylenol scheduled twice daily. Check orthostatic vital signs tomorrow. At this time, insurance has denied authorization for subacute rehab. Review Of Systems: Constitutional: No fever, no chills, no night sweats. No weight change. Reports weakness, fatigue or lethargy. Reports daytime sleepiness. EENT: No headache. No blurred vision or double vision, no loss of vision. No loss of Hearing, no ringing in the ears, no dizziness. No nasal drainage or congestion. No epistaxis. No sore throat. Lungs: No shortness of breath, cough, no sputum production. No wheezing. Cardiovascular: No chest pain, no lower extremity edema. No palpitations. No paroxysmal nocturnal dyspnea. No orthopnea. No lightheadedness or dizziness. No syncopal episodes. Abdominal: No abdominal pain. No nausea, vomiting. No diarrhea. No constipation. No bloody or tarry stools. Genitourinary: No dysuria, increased frequency, urgency. No urinary retention. Musculoskeletal: Reports myalgias. No muscle weakness, no gait dysfunction, no frequent falls. No back pain. No neck pain. Integumentary: No wounds, no lesions. No rash or pruritus. No unusual bruising. No change in hair or nails. Neurologic: No aphasia. No facial droop. No change in mentation. No head injury. No headache. No paralysis. No paresthesia. Reports balance change. Psychiatric: No depression. No anxiety. No mood swings. Endocrine: No abnormal blood sugars. No weight change. No excessive sweating or thirst. No cold intolerance. No weight change. Objective - Vital Signs Vital signs: Vital Signs Temp 99.1 F 01/09/19 05:30 Pulse 80 01/09/19 05:30 Resp 18 01/09/19 05:30 BP 96/60 01/09/19 05:30 Pulse Ox 92 L 01/09/19 07:47 Intake & Output 01/08/19 01/09/19 01/09/19 18:59 06:59 18:59 Intake Total 1420 200 Balance 1420 200 Intake: Intake, IV Titration 1300 Amount Sodium Chloride 0.9% 1, 800 000 ml @ 100 mls/hr IV . Q10H [facility] Rx#:[id number] Sodium Chloride 0.9% 500 500 ml 500 ml @ 999 mls/hr IV .Q31M [facility] Rx#:[id number] Oral 120 200 Other: Voiding Method Toilet Toilet # Voids 3 1 - Exam Gen: This is a 73-year-old female. Patient is in bed and appears to be comfortable and in no acute distress. HEENT: Head is atraumatic, normocephalic. Pupils equal, round. Sclerae is anicteric. Conjunctiva pink. Mucous members of the mouth are somewhat dry. NECK: Supple. No JVD. No lymphadenopathy. No thyromegaly. LUNGS: Diminished with crackles bilaterally. No intercostal retractions. HEART: Irregularly irregular with a systolic murmur. ABDOMEN: Soft. Bowel sounds are present. No masses. No tenderness. EXTREMITIES: No pedal edema. No calf tenderness. Dorsalis pedis +2 bilaterally. NEUROLOGICAL: Patient is awake, alert and oriented x3. Cranial nerves 2 through 12 are grossly intact. - Labs CBC & Chem 7: 01/06/19 05:10 01/09/19 09:25 Assessment and Plan Plan: 1. Acute kidney injury secondary to dehydration and recent heart catheterization. IV fluids continued. Avoid nephrotoxic agents. 2. Abnormal troponin. Repeat ordered. Echocardiogram as above. Cardiology on consult. 3. Hypotension, generalized weakness and metabolic encephalopathy secondary to dehydration, acute kidney injury and Ativan. Continue IV fluids 50 mL per hour. Patient is status post IV fluid bolus today 4. Chronic atrial fibrillation. Resume Pradaxa. Continue digoxin 125 g daily , aspirin 81 mg daily, Lopressor 50 mg twice daily. 5. Known history of epilepsy. Continue gabapentin 600 mg 3 times daily. 6. Hypertension. Continue Lopressor. 7. Hyperlipidemia. Continue simvastatin 80 mg at bedtime. 8. Neuropathy. Continue gabapentin 600 mg orally tid. 9. Hypothyroidism. Continue Synthroid 50 g daily. TSH 1.910. 10. COPD. Continue Symbicort twice daily and DuoNeb treatments as needed. 11. Chronic diastolic heart failure. Lasix 40 mg twice daily. Continue Lopressor. 12. Recent weight loss with COPD, active tobacco use. CAT scan of the chest was done on last admission. 13. Metabolic encephalopathy with mild confusion of most likely secondary to combination of Ativan and acute kidney injury. 14. Generalized anxiety disorder. Continue Cymbalta 60 mg daily, gabapentin decreased to 400 mg 3 times daily. Klonopin decreased to 1 mg at bedtime only. 15. GI prophylaxis. Pepcid. 16. DVT prophylaxis.David hose knee-high. 17. Distal esophageal esophagitis, gastritis and duodenitis. Continue Protonix Discharge plan: [facility] on Friday Impression and plan of care have been directed as dictated by the signing physician. Re Saeed nurse practitioner acting as scribe for signing physician.
[2019-01-09] MEDS: ATORVASTATIN 40 MG TAB PO SCH (21:04)
[2019-01-09] MEDS: DABIGATRAN 150 MG CAP PO SCH (21:04)
[2019-01-10] MEDS: LEVOTHYROXINE 50 MCG TAB PO SCH (06:16)
[2019-01-10] MEDS: SYMBICORT 160-4.5 MCG INHALER INHALATION SCH ×2 (07:06→20:15)
[2019-01-10] MEDS: FUROSEMIDE 40 MG TAB PO SCH ×2 (08:53→11:45)
[2019-01-10] MEDS: METOPROLOL TARTRATE 50 MG TAB PO SCH ×2 (08:53→20:50)
[2019-01-10] MEDS: DIGOXIN 125 MCG TAB PO SCH (08:53)
[2019-01-10] MEDS: DULoxetine HCL 60 MG CAPSULE.DR PO SCH (08:53)
[2019-01-10] MEDS: PANTOPRAZOLE 40 MG TABLET PO SCH (08:53)
[2019-01-10] MEDS: ASPIRIN 81 MG PO SCH (08:53)
[2019-01-10] MEDS: ACETAMINOPHEN TAB 325 MG TAB PO SCH ×2 (08:54→20:48)
[2019-01-10] MEDS: DABIGATRAN 150 MG CAP PO SCH ×2 (09:28→20:50)
[2019-01-10] MEDS: GABAPENTIN 400 MG CAP PO SCH ×3 (09:28→20:50)
[2019-01-10] MEDS: busPIRone HCl 10 MG TAB PO SCH ×2 (10:09→20:48)
[2019-01-10] MEDS ORDERED: Magnesium Replacement Protocol 1 EACH MISC MISCELLANE PRN (11:17)
[2019-01-10] MEDS: MAGNESIUM SULFATE-D5W PMX 1 GM in DEXTROSE/WATER 1 100ML.BAG IVPB SCH ×3 (11:45→14:39)
[2019-01-10 11:59] LABS: Calcium 8.7 mg/dL (8.4-10.2); Potassium 3.6 mmol/L (3.5-5.1)
--- NOTE | 2019-01-10 12:25 | P.PN ---
Subjective Progress Note Date: 01/10/19 This is a 73-year-old female patient of Dr Jones, Dr. Rasmussen, Dr. Littlejohn. She has underlying history of epilepsy, neurofibromatosis, COPD, CAD, chronic atrial fibrillation on Pradaxa, hypertension, hyperlipidemia, active tobacco use and dependence, hypothyroidism. She had a recent hospitalization in December and treated for acute diastolic heart failure and there was concern for underlying coronary artery disease and patient came back in for heart catheterization as an outpatient on January 01 that found mild nonobstructing coronary artery disease involving the left circumflex and ramus intermedius coronary arteries. Recommendations were to maximize medical treatment and aggressive cholesterol control. She had GI symptoms for which she is scheduled for EGD with Dr. Beebe. Echocardiogram from December 2017 reveals EF of 55-60% with mild concentric left ventricular hypertrophy, LA severely dilated greater than 40, mild aortic valve sclerosis, trace mitral regurgitation, mild tricuspid regurgitation Patient apparently is having trouble with falling at home. She states she was at Dr. Jones's office yesterday. Patient is quite drowsy and a poor historian. Patient came into [facility] emergency center for evaluation. Initial vital signs were temperature 97.3, pulse 74, blood pressure 124/66 and pulse ox on her percent. EKG was A. fib at rate of 57. White count normal, hemoglobin 16.3, platelet count 191. Sodium 133, potassium 3.4, chloride 90 CO2 32, BUN 41 and creatinine 1.53. Blood sugar 100. Troponin 0.039. TSH 2.200. Lactic acid 1.7. Urinalysis was clear, blood small, nitrate and leukoesterase negative. Chest x-ray reveals cardiomegaly with chronic parenchymal changes without acute pulmonary process. CT of the brain and C- spine showed no acute fracture dislocation of the cervical spine. No acute intracranial hemorrhage or midline shift. Resolving anterior frontal hematoma noted. Patient will be started on IV fluids and home medications resumed, cardiology consult requested and monitor renal function. Noted the patient was given IV Ativan last night for insomnia which is contributing to her mental status changes. 01/06: Patient has been seen by cardiology with recommendations to continue current medications and plan for follow-up with Dr. Rasmussen in the office. Patient is scheduled for EGD on Friday with Dr. Chavez and Pradaxa will be on hold. Patient states that she walked to the bathroom today and out into the hallway. She states she was a little off balance but denies any dizziness. She denies any shortness of breath or abdominal pain. Potassium 3.3 will be replaced. Repeat BUN is at 28 and creatinine 1.17. CBC within normal limits. Triglycerides 106, cholesterol 123, LDL 59, HDL 43. PT has recommended subacute rehab and patient will go to the [facility] or [facility]. Anticipate she will be ready for discharge by tomorrow. She'll be continued on IV fluids for several more hours at reduced rate of 50 mL per hour. 01/07: Patient has been afebrile, blood pressure 98/54 to 129/58, heart rate running in the 70s, pulse ox 98% on room air. IV fluids have been discontinued. Patient is willing to go to [facility] but apparently daughter wanted her to go to [facility]. Case management and child protective services social worker are working on discharge plan. Patient will be discharged today once insurance authorization is obtained. 01/08: The patient was unable to be discharged yesterday as insurance authorization was not obtained. This morning, patient is found to have orthostatic positive vital signs and given IV fluid bolus followed by IV fluids. Patient underwent EGD with Dr. Chavez that found linear erosions in the distal esophagus consistent with LA grade B reflux esophagitis and diffuse gastritis and duodenitis. Biopsy was obtained. Recommendations for Protonix 40 mg daily and advance diet as tolerated. Patient has returned to the cardiac stepdown unit and her blood pressure is 85/59. IV fluids will be continued. No plan for discharge at this point. She was authorization remains pending anyway. 01/09: Patient is complaining of feeling achy all over hold onto her shoulders. A call was placed last night and Voltaren gel was ordered but patient did not get any relief from this and she received morphine. Klonopin was to be changed to at bedtime only which will be done now. Gabapentin also decreased from 600- 400 mg 3 times daily. IV fluids will be stopped and patient to increase oral intake. Tylenol scheduled twice daily. Check orthostatic vital signs tomorrow. At this time, insurance has denied authorization for subacute rehab. 01/10: Patient had more confusion yesterday had mental status is somewhat improved today but she does have some tremors noted. We did discontinue the morning Klonopin. We will add in BuSpar 10 mg twice daily. The patient had a fall at home in the bathroom prior to admission and she is complaining of right shoulder pain and we will obtain an x-ray. She has been afebrile, heart rate running in the 60s and 70s, blood pressure 114/61, pulse ox 95% on room air. Vitamin B12 came back at 877. Anticipate discharge home tomorrow for evaluation occurs over the phone with insurance company. Review Of Systems: Constitutional: No fever, no chills, no night sweats. No weight change. Reports weakness, fatigue or lethargy. Reports daytime sleepiness. EENT: No headache. No blurred vision or double vision, no loss of vision. No loss of Hearing, no ringing in the ears, no dizziness. No nasal drainage or congestion. No epistaxis. No sore throat. Lungs: No shortness of breath, cough, no sputum production. No wheezing. Cardiovascular: No chest pain, no lower extremity edema. No palpitations. No paroxysmal nocturnal dyspnea. No orthopnea. No lightheadedness or dizziness. No syncopal episodes. Abdominal: No abdominal pain. No nausea, vomiting. No diarrhea. No constipation. No bloody or tarry stools. Genitourinary: No dysuria, increased frequency, urgency. No urinary retention. Musculoskeletal: Reports myalgias. No muscle weakness, no gait dysfunction, no frequent falls. No back pain. No neck pain. Integumentary: No wounds, no lesions. No rash or pruritus. No unusual bruising. No change in hair or nails. Neurologic: No aphasia. No facial droop. No change in mentation. No head injury. No headache. No paralysis. No paresthesia. Reports balance change. Psychiatric: No depression. No anxiety. No mood swings. Endocrine: No abnormal blood sugars. No weight change. No excessive sweating or thirst. No cold intolerance. No weight change. Objective - Vital Signs Vital signs: Vital Signs Temp 98.0 F 01/10/19 05:40 Pulse 62 01/10/19 05:40 Resp 18 01/10/19 05:40 BP 114/61 01/10/19 05:40 Pulse Ox 95 01/10/19 05:40 Intake & Output 02/08/1901/10/19 01/10/19 18:59 06:59 18:59 Intake Total 600 550 Balance 600 550 Intake: Oral 600 550 Other: # Voids 1 2 - Exam Gen: This is a 73-year-old female. Patient is in the bathroom appears to be comfortable and in no acute distress. HEENT: Head is atraumatic, normocephalic. Pupils equal, round. Sclerae is anicteric. Conjunctiva pink. Mucous members of the mouth are somewhat dry. NECK: Supple. No JVD. No lymphadenopathy. No thyromegaly. LUNGS: Diminished with crackles bilaterally. No intercostal retractions. HEART: Irregularly irregular with a systolic murmur. ABDOMEN: Soft. Bowel sounds are present. No masses. No tenderness. EXTREMITIES: No pedal edema. No calf tenderness. Dorsalis pedis +2 bilaterally. NEUROLOGICAL: Patient is awake, alert and oriented x3. Cranial nerves 2 through 12 are grossly intact. - Labs CBC & Chem 7: 01/06/19 05:10 01/10/19 09:46 Labs: Abnormal Lab Results - Last 24 Hours (Table) 01/09/19 Range/Units 09:25 Sodium 135 L (137-145) mmol/L Calcium 8.2 L (8.4-10.2) mg/dL Creatine Kinase 20 L (30-135) U/L Assessment and Plan Plan: 1. Acute kidney injury secondary to dehydration and recent heart catheterization. IV fluids continued. Avoid nephrotoxic agents. 2. Abnormal troponin. Repeat ordered. Echocardiogram as above. Cardiology on consult. 3. Hypotension, generalized weakness and metabolic encephalopathy secondary to dehydration, acute kidney injury and Ativan. Continue IV fluids 50 mL per hour. Patient is status post IV fluid bolus today 4. Chronic atrial fibrillation. Resume Pradaxa. Continue digoxin 125 g daily , aspirin 81 mg daily, Lopressor 50 mg twice daily. 5. Known history of epilepsy. Continue gabapentin 600 mg 3 times daily. 6. Hypertension. Continue Lopressor. 7. Hyperlipidemia. Continue simvastatin 80 mg at bedtime. 8. Neuropathy. Continue gabapentin 600 mg orally tid. 9. Hypothyroidism. Continue Synthroid 50 g daily. TSH 1.910. 10. COPD. Continue Symbicort twice daily and DuoNeb treatments as needed. 11. Chronic diastolic heart failure. Lasix 40 mg twice daily. Continue Lopressor. 12. Recent weight loss with COPD, active tobacco use. CAT scan of the chest was done on last admission. 13. Metabolic encephalopathy with mild confusion of most likely secondary to combination of Ativan and acute kidney injury. 14. Generalized anxiety disorder. Continue Cymbalta 60 mg daily, gabapentin decreased to 400 mg 3 times daily. Klonopin decreased to 1 mg at bedtime only. 15. GI prophylaxis. Pepcid. 16. DVT prophylaxis.David hose knee-high. 17. Distal esophageal esophagitis, gastritis and duodenitis. Continue Protonix 18. Right shoulder pain following fall at home, x-ray ordered Discharge plan: [facility] on Friday Impression and plan of care have been directed as dictated by the signing physician. Re Saeed nurse practitioner acting as scribe for signing physician.
--- NOTE | 2019-01-10 12:28 | P.DS ---
Providers Date of admission: 01/04/19 19:34 Expected date of discharge: 01/12/19 Attending physician: Leon Resendiz Consults: 01/05/19 10:55 Consult Physician Routine Consulting Provider: Nakul Abel Consult Reason/Comments: elevated troponins, hypotension Do you want consulting provider notified?: Yes 01/09/19 08:47 Consult Physician Routine Consulting Provider: Eric Elaine Consult Reason/Comments: inpatient rehab Do you want consulting provider notified?: Yes 01/10/19 09:10 Consult Physician Routine Consulting Provider: Eric Elaine Consult Reason/Comments: inpatient rehab Do you want consulting provider notified?: Yes Primary care physician: [facility] Hospital Course: This is a 73-year-old female patient of Dr Jones, Dr. Rasmussen, Dr. Littlejohn. She has underlying history of epilepsy, neurofibromatosis, COPD, CAD, chronic atrial fibrillation on Pradaxa, hypertension, hyperlipidemia, active tobacco use and dependence, hypothyroidism. She had a recent hospitalization in December and treated for acute diastolic heart failure and there was concern for underlying coronary artery disease and patient came back in for heart catheterization as an outpatient on January 01 that found mild nonobstructing coronary artery disease involving the left circumflex and ramus intermedius coronary arteries. Recommendations were to maximize medical treatment and aggressive cholesterol control. She had GI symptoms for which she is scheduled for EGD with Dr. Beebe. Echocardiogram from December 2017 reveals EF of 55-60% with mild concentric left ventricular hypertrophy, LA severely dilated greater than 40, mild aortic valve sclerosis, trace mitral regurgitation, mild tricuspid regurgitation Patient apparently is having trouble with falling at home. She states she was at Dr. Jones's office yesterday. Patient is quite drowsy and a poor historian. Patient came into [facility] emergency center for evaluation. Initial vital signs were temperature 97.3, pulse 74, blood pressure 124/66 and pulse ox on her percent. EKG was A. fib at rate of 57. White count normal, hemoglobin 16.3, platelet count 191. Sodium 133, potassium 3.4, chloride 90 CO2 32, BUN 41 and creatinine 1.53. Blood sugar 100. Troponin 0.039. TSH 2.200. Lactic acid 1.7. Urinalysis was clear, blood small, nitrate and leukoesterase negative. Chest x-ray reveals cardiomegaly with chronic parenchymal changes without acute pulmonary process. CT of the brain and C- spine showed no acute fracture dislocation of the cervical spine. No acute intracranial hemorrhage or midline shift. Resolving anterior frontal hematoma noted. Patient will be started on IV fluids and home medications resumed, cardiology consult requested and monitor renal function. Noted the patient was given IV Ativan last night for insomnia which is contributing to her mental status changes. 01/06: Patient has been seen by cardiology with recommendations to continue current medications and plan for follow-up with Dr. Rasmussen in the office. Patient is scheduled for EGD on Friday with Dr. Chavez and Pradaxa will be on hold. Patient states that she walked to the bathroom today and out into the hallway. She states she was a little off balance but denies any dizziness. She denies any shortness of breath or abdominal pain. Potassium 3.3 will be replaced. Repeat BUN is at 28 and creatinine 1.17. CBC within normal limits. Triglycerides 106, cholesterol 123, LDL 59, HDL 43. PT has recommended subacute rehab and patient will go to the [facility] or [facility]. Anticipate she will be ready for discharge by tomorrow. She'll be continued on IV fluids for several more hours at reduced rate of 50 mL per hour. 01/07: Patient has been afebrile, blood pressure 98/54 to 129/58, heart rate running in the 70s, pulse ox 98% on room air. IV fluids have been discontinued. Patient is willing to go to [facility] but apparently daughter wanted her to go to [facility]. Case management and criminal justice social worker are working on discharge plan. Patient will be discharged today once insurance authorization is obtained. 01/08: The patient was unable to be discharged yesterday as insurance authorization was not obtained. This morning, patient is found to have orthostatic positive vital signs and given IV fluid bolus followed by IV fluids. Patient underwent EGD with Dr. Chavez that found linear erosions in the distal esophagus consistent with LA grade B reflux esophagitis and diffuse gastritis and duodenitis. Biopsy was obtained. Recommendations for Protonix 40 mg daily and advance diet as tolerated. Patient has returned to the cardiac stepdown unit and her blood pressure is 85/59. IV fluids will be continued. No plan for discharge at this point. She was authorization remains pending anyway. 01/09: Patient is complaining of feeling achy all over hold onto her shoulders. A call was placed last night and Voltaren gel was ordered but patient did not get any relief from this and she received morphine. Klonopin was to be changed to at bedtime only which will be done now. Gabapentin also decreased from 600- 400 mg 3 times daily. IV fluids will be stopped and patient to increase oral intake. Tylenol scheduled twice daily. Check orthostatic vital signs tomorrow. At this time, insurance has denied authorization for subacute rehab. 01/10: Patient had more confusion yesterday had mental status is somewhat improved today but she does have some tremors noted. We did discontinue the morning Klonopin. We will add in BuSpar 10 mg twice daily. The patient had a fall at home in the bathroom prior to admission and she is complaining of right shoulder pain and we will obtain an x-ray. She has been afebrile, heart rate running in the 60s and 70s, blood pressure 114/61, pulse ox 95% on room air. Vitamin B12 came back at 877. Anticipate discharge home tomorrow for evaluation occurs over the phone with insurance company. 01/11: Daughter verbalizes that patient has had on and off confusion since she had her stroke. Most likely this is secondary to vascular dementia. She has also been experiencing the same while hospitalized. She is more confused today from yesterday but is able to follow commands and answer simple questions. X- ray of the right shoulder reveal osteoarthritic degenerative change. No acute osseous abnormality. Patient had orthostatics done yesterday that did show a 20 point change from sitting to standing. Lasix will be decreased to 20mg daily. She has been afebrile, blood pressure 101/53, pulse ox 95% on room air, heart rate running in the 50s and 60s. Patient has been evaluated by Dr. Elaine and is following therapy. We will plan for discharge to either [facility] or [facility] Re[facility] at [facility] today once arrangements are completed. Dr. Pan is waiting for insurance called sometime today before 5 PM regarding [id number] evaluation for rehab. 01/12: Patient was doing very well this morning during our evaluation. She was ambulated out into the hallway and use her walker. She did have some confusion during the night and orthostatic changes continue to be a problem. She is started on middle drain for orthostatic changes. Clonidine will be decreased at bedtime. Patient states that she is feeling weak and she gets lightheaded when she gets up. Today, authorization from insurance was obtained during the [id number] phone evaluation. Subsequently, patient developed sudden onset of left-sided weakness and left-sided facial droop. Her blood pressure was low at systolic of 50. Patient was ordered for IV fluid bolus, stat CAT scan and transferred to the intensive care unit. CT of the brain found to 0.4 cm right basal ganglia acute intra-parenchymal hematoma. Arrangements were made for patient be transferred to [facility]. Discharge diagnoses: 1. Acute kidney injury secondary to dehydration and recent heart catheterization. 2. Abnormal troponin secondary to recent heart catheterization. 3. Hypotension with orthostatic changes, generalized weakness and metabolic encephalopathy secondary to combination of dehydration, acute kidney injury and Ativan. 4. Chronic atrial fibrillation. Hold Pradaxa for EGD scheduled on Friday. 5. Known history of epilepsy. 6. Hypertension. 7. Hyperlipidemia. 8. Neuropathy. 9. Hypothyroidism. 10. COPD. 11. Chronic diastolic heart failure. 12. Metabolic encephalopathy with mild confusion of most likely secondary to combination of Ativan and acute kidney injury. 13. Generalized anxiety disorder. 14. Distal esophageal esophagitis, gastritis and duodenitis. 15. Right shoulder pain secondary to osteoasrthritis 16. Vascular dementia secondary to previous CVA 17. Acute hemorrhagic stroke right-sided with left-sided weakness and facial droop Discharge plan: [facility] canceled. Transfer to [facility]. Impression and plan of care have been directed as dictated by the signing physician. Re Saeed nurse practitioner acting as scribe for signing physician. Patient Condition at Discharge: Serious Plan - Discharge Summary Discharge Rx Participant: Yes New Discharge Prescriptions: New busPIRone HCl [Buspar] 10 mg PO BID #60 tab Dabigatran [Pradaxa] 150 mg PO BID cap Diclofenac Sodium Gel [Voltaren Gel] 4 gm TOPICAL QID PRN tube PRN Reason: Pain Gabapentin [Neurontin] 400 mg PO TID #9 cap clonazePAM [KlonoPIN] 0.5 mg PO HS #3 tab Metoprolol Tartrate [Lopressor] 25 mg PO BID tab Midodrine [ProAmatine] 10 mg PO AC-TID tab Continue DULoxetine HCL [Cymbalta] 60 mg PO DAILY Digoxin [Digox] 125 mcg PO DAILY Aspirin 81 mg PO DAILY Budesonide/Formoterol Fumarate [Symbicort 160-4.5 Mcg Inhaler] 2 puff INHALATION RT-BID Levothyroxine Sodium [Synthroid] 50 mcg PO DAILY Simvastatin [Zocor] 80 mg PO HS Pantoprazole Sodium [Protonix] 40 mg PO DAILY #30 tablet.dr Changed Furosemide [Lasix] 20 mg PO DAILY #0 Metoprolol Tartrate [Lopressor] 25 mg PO BID #0 Discontinued Gabapentin [Neurontin] 600 mg PO TID clonazePAM [KlonoPIN] 1 mg PO BID Dabigatran [Pradaxa] 150 mg PO BID Discharge Medication List DULoxetine HCL [Cymbalta] 60 mg PO DAILY 07/27/14 [History] Digoxin [Digox] 125 mcg PO DAILY 09/01/14 [History] Aspirin 81 mg PO DAILY 11/29/16 [History] Budesonide/Formoterol Fumarate [Symbicort 160-4.5 Mcg Inhaler] 2 puff INHALATION RT-BID 12/23/18 [History] Levothyroxine Sodium [Synthroid] 50 mcg PO DAILY 12/23/18 [History] Simvastatin [Zocor] 80 mg PO HS 12/23/18 [History] Pantoprazole Sodium [Protonix] 40 mg PO DAILY #30 tablet. 12/25/18 [Rx] Dabigatran [Pradaxa] 150 mg PO BID cap 01/11/19 [Rx] Diclofenac Sodium Gel [Voltaren Gel] 4 gm TOPICAL QID PRN tube 01/11/19 [Rx] Furosemide [Lasix] 20 mg PO DAILY #0 01/11/19 [Rx] Gabapentin [Neurontin] 400 mg PO TID #9 cap 01/11/19 [Rx] Metoprolol Tartrate [Lopressor] 25 mg PO BID #0 01/11/19 [Rx] busPIRone HCl [Buspar] 10 mg PO BID #60 tab 01/11/19 [Rx] Metoprolol Tartrate [Lopressor] 25 mg PO BID tab 01/12/19 [Rx] Midodrine [ProAmatine] 10 mg PO AC-TID tab 01/12/19 [Rx] clonazePAM [KlonoPIN] 0.5 mg PO HS #3 tab 01/12/19 [Rx] Follow up Appointment(s)/Referral(s): Ed Rasmussen MD [STAFF PHYSICIAN] - 01/19/19 4:30 pm Rafy Jones MD [Primary Care Provider] - 1 Week (at [facility]) Activity/Diet/Wound Care/Special Instructions: Orthostatic check q shift x 2 days. Discharge Disposition: TRANSFER TO SHORT TERM HOSP
--- NOTE | 2019-01-10 18:45 | XR ---
EXAMINATION TYPE: XR shoulder complete RT DATE OF EXAM: 01/10/2019 COMPARISON: NONE HISTORY: Pain TECHNIQUE: Shoulder examined in 3 FINDINGS: The humeral head articulates with the glenoid. Joint spaces narrowed compatible some osteoarthritic d egenerative change. The acromio-clavicular junction is normal. No acute fractures or dislocations are evident. Degenerative spurring is at the humeral head. A follow up study can be performed 7-10 days from acute trauma for continued pain. IMPRESSION: 1. Osteoarthritic degenerative change of the right shoulder. No acute osseous abnormality is evident.
[2019-01-10] MEDS: ATORVASTATIN 40 MG TAB PO SCH (20:48)
[2019-01-10] MEDS: clonazePAM 1 MG TAB PO SCH (20:49)
--- NOTE | 2019-01-11 06:20 | P.CONS ---
History of Present Illness - Chief Complaint Gait disturbance - History of Present Illness I had the opportunity to see patient for inpatient rehab consultation with regard to gait disturbance and frequent falls. She was admitted to [facility] January 04 with history of falling and diagnosis of acute kidney injury. Seen by cardiology for known CHF and persistent atrial fibrillation. Seen by Dr. Luis Beebe who did upper endoscopy diagnosed esophagitis, gastritis, duodenitis. Right shoulder x-ray of arthritic change. Head CT negative. C-spine CT with retrolisthesis C6 and facet change C3. Chest x-ray cardiomegaly and patchy infiltrate. PT reports supervision for bed mobility and minimal assistance for gait 25 feet with roller walker, balance poor and quick and impulsive with poor safety awareness. OT reports moderate assistance for upper dressing and total assistance for lower dressing. Maximal assistance for toileting and unable to assess transfers. Previous functional history as elicited from patient: 73-year-old right-handed white female who is lives in one floor home with . Both are retired. Patient describes independent with cooking, laundry, driving, standing shower and gait without device. Just quit smoking 3 weeks ago. Occasional drink. Dr. Jones is regular doctor. Review of Systems Review of systems: ENT: Denies sneezes or discharge. Eyes: Denies discharge or photophobia. Cardiac: Denies chest pain or palpitation. Pulmonary: Denies cough or shortness of breath. Breast: Denies discharge or lumps. Gastrointestinal: Denies nausea, emesis, constipation, diarrhea. Genitourinary: Denies discharge or frequency. Musculoskeletal: Denies muscle or bone aches. Neurologic: Balance problems. Endocrine: Denies shakes or sweats. Oncology: Denies cancers. Dermatologic: Denies rash, itching, pruritus. ALLERGY/immunology: Denies sneezes, rashes. 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 She did see quit for short period 2013. No alcohol use, marijuana use, illicit drug use. - Past Family History Father Additional Family Medical History / Comment(s): AT AGE 96, MACULAR DEGENERATION, AFIB AT AGE 90 Mother Family Medical History: No Reported History Additional Family Medical History / Comment(s): MOM AT AGE 89-ALZHEIMERS Medications and Allergies Home Medications Medication Instructions Recorded Confirmed Type DULoxetine HCL [Cymbalta] 60 mg PO DAILY 07/27/14 01/04/19 History Digoxin [Digox] 125 mcg PO DAILY 09/01/14 01/04/19 History Aspirin 81 mg PO DAILY 11/29/16 01/04/19 History Budesonide/Formoterol Fumarate 2 puff INHALATION RT-BID 12/23/18 01/04/19 History [Symbicort 160-4.5 Mcg Inhaler] Levothyroxine Sodium [Synthroid] 50 mcg PO DAILY 12/23/18 01/04/19 History Simvastatin [Zocor] 80 mg PO HS 12/23/18 01/04/19 History Pantoprazole Sodium [Protonix] 40 mg PO DAILY #30 tablet. 12/25/18 01/04/19 Rx Furosemide [Lasix] 40 mg PO BID@0800,1200 12/28/18 01/04/19 History Metoprolol Tartrate [Lopressor] 50 mg PO BID 01/01/19 01/04/19 History clonazePAM [KlonoPIN] 1 mg PO BID 01/04/19 01/04/19 History Gabapentin [Neurontin] 600 mg PO TID #9 tablet 01/07/19 Rx Allergies Allergy/AdvReac Type Severity Reaction Status Date / Time adhesive tape Allergy Rash/ITCHIN Verified 01/04/19 16:16 G codeine Allergy Unknown Verified 01/04/19 16:16 latex Allergy Rash/Hives Verified 01/04/19 16:16 meperidine HCl [From Demerol] AdvReac Nausea & Verified 01/04/19 16:16 Vomiting,HEADACHE Physical Exam Vitals: Vital Signs Temp Pulse Pulse Pulse Pulse Resp BP 01/10/19 23:29 98.0 F 52 L 14 01/10/19 15:16 97.5 F L 90 81 73 16 114/50 01/10/19 15:00 BP BP Pulse Ox 01/10/19 23:29 98/60 96 01/10/19 15:16 87/53 93/57 01/10/19 15:00 95 Intake and Output 01/10/19 01/10/19 01/11/19 14:59 22:59 06:59 Intake Total 700 Balance 700 Intake: Oral 700 Other: # Voids 3 2 Skin: Atrophic, intact. General: Medium build and comfortable appearance. Head: Normocephalic, atraumatic. Eyes: Symmetric. Pupils equal round. Ears: Symmetric. Hearing within normal limits. Mouth: Clear. Neck: Supple. Carotid without bruit. Cardiac: Regular rate and rhythm. Lungs: Clear anteriorly and posteriorly. Abdomen: Soft active nontender. Extremities: Normal tone. Neurological: Mental status: Alert, cooperative, pleasant. Cranial nerves: Symmetric facial tone and trapezius. Motor: Normal strength and isolation all 4 limbs. Sensation: Intact throughout. DTRs: Symmetric and equal throughout. Mobility: Sits with assistance. Results CBC & Chem 7: 01/06/19 05:10 01/10/19 09:46 Labs: Abnormal Lab Results - Last 24 Hours (Table) 01/10/19 01/10/19 Range/Units 09:46 09:46 Sodium 136 L (137-145) mmol/L Chloride 96 L (98-107) mmol/L Carbon Dioxide 35 H (22-30) mmol/L Creatinine 1.07 H (0.52-1.04) mg/dL Magnesium 1.3 L (1.6-2.3) mg/dL Assessment and Plan (1) Acute renal failure Current Visit: Yes Status: Acute Code(s): N17.9 - ACUTE KIDNEY FAILURE, UNSPECIFIED SNOMED Code(s): 23499372 (2) Falls Current Visit: Yes Status: Acute Code(s): W19.XXXA - UNSPECIFIED FALL, INITIAL ENCOUNTER SNOMED Code(s): 0208666 (3) Weakness Current Visit: Yes Status: Acute Code(s): R53.1 - WEAKNESS SNOMED Code(s) : 83439188 Plan: Impression: 1. Gait disturbance with frequent falls. 2. Generalized weakness. 3. Acute kidney injury. 4. CHF. 5. Persistent atrophic fibrillation. 6. Hypertension. 7. Dyslipidemia. 8. History of epilepsy. 9. History of stroke. 10. COPD. 11. Fibromyalgia. Counts and plan: At this time PT and OT are ongoing with safety concerns noted and the ability tolerate and benefit from therapies. We'll determine goals for patient return to home, for possible inpatient rehab goals.
[2019-01-11] MEDS: LEVOTHYROXINE 50 MCG TAB PO SCH (06:36)
[2019-01-11] MEDS: SYMBICORT 160-4.5 MCG INHALER INHALATION SCH ×2 (07:13→20:07)
[2019-01-11] MEDS: METOPROLOL TARTRATE 50 MG TAB PO SCH (09:21)
[2019-01-11] MEDS: FUROSEMIDE 40 MG TAB PO SCH (09:38)
[2019-01-11] MEDS: DULoxetine HCL 60 MG CAPSULE.DR PO SCH (09:40)
[2019-01-11] MEDS: DIGOXIN 125 MCG TAB PO SCH (09:40)
[2019-01-11] MEDS: PANTOPRAZOLE 40 MG TABLET PO SCH (09:40)
[2019-01-11] MEDS: FUROSEMIDE 20 MG TAB PO SCH (09:40)
[2019-01-11] MEDS: busPIRone HCl 10 MG TAB PO SCH ×2 (09:40→20:45)
[2019-01-11] MEDS: GABAPENTIN 400 MG CAP PO SCH ×3 (09:40→20:46)
[2019-01-11] MEDS: ASPIRIN 81 MG PO SCH (09:40)
[2019-01-11] MEDS: METOPROLOL TARTRATE 25 MG TAB PO SCH ×2 (09:41→20:46)
[2019-01-11] MEDS: ACETAMINOPHEN TAB 325 MG TAB PO SCH ×2 (09:41→20:44)
[2019-01-11] MEDS: DABIGATRAN 150 MG CAP PO SCH ×2 (09:55→20:46)
[2019-01-11 10:00] LABS: Potassium 3.6 mmol/L (3.5-5.1)
[2019-01-11 10:48] VITALS: BMI 22.2
[2019-01-11] MEDS ORDERED: CALCIUM CARBONATE 500 MG CHEWABLE PO PRN ×2 (14:52→18:34)
[2019-01-11] MEDS: clonazePAM 1 MG TAB PO SCH (20:45)
[2019-01-11] MEDS: ATORVASTATIN 40 MG TAB PO SCH (20:45)
[2019-01-12] MEDS: LEVOTHYROXINE 50 MCG TAB PO SCH (06:16)
[2019-01-12] MEDS: ASPIRIN 81 MG PO SCH (08:33)
[2019-01-12] MEDS: ACETAMINOPHEN TAB 325 MG TAB PO SCH (08:33)
[2019-01-12] MEDS: busPIRone HCl 10 MG TAB PO SCH (08:33)
[2019-01-12] MEDS: METOPROLOL TARTRATE 25 MG TAB PO SCH (08:34)
[2019-01-12] MEDS: DIGOXIN 125 MCG TAB PO SCH (08:34)
[2019-01-12] MEDS: DULoxetine HCL 60 MG CAPSULE.DR PO SCH (08:34)
[2019-01-12] MEDS: FUROSEMIDE 20 MG TAB PO SCH (08:34)
[2019-01-12] MEDS: DABIGATRAN 150 MG CAP PO SCH (08:34)
[2019-01-12] MEDS: PANTOPRAZOLE 40 MG TABLET PO SCH (08:35)
[2019-01-12] MEDS: GABAPENTIN 400 MG CAP PO SCH (08:58)
[2019-01-12] MEDS: SYMBICORT 160-4.5 MCG INHALER INHALATION SCH (09:51)
[2019-01-12 11:39] LABS: Glucose,Whole Blood 115 mg/dL (75-99)
--- NOTE | 2019-01-12 11:55 | CT ---
EXAMINATION TYPE: CT brain wo con DATE OF EXAM: 01/12/2019 HISTORY: Left-sided weakness and facial droop, history of TIA. CT DLP: 1210 mGycm. Automated Exposure Control for Dose Reduction was Utilized. TECHNIQUE: CT scan of the head is performed without contrast. COMPARISON: CT brain from 8 days ago. FINDINGS: There is new acute intraparenchymal hemorrhage right basal ganglia measuring 2.4 cm AP diam eter by 1.4 cm transversely by approximately 2.1 cm craniocaudal dimension coronal image 34. No midli ne shift is seen. Ventricle and sulcal prominence consistent with diffuse cerebral atrophy is redemon strated. Old lacunar infarct left basal ganglia axial image 29 is redemonstrated. Some mild low-atten uation periventricular white matter is redemonstrated. There is new moderate size acute frontal scalp hematoma in the midline axial image 39. There is suspected new high left acute frontal scalp hematom a axial image 51 adjacent to 2 soft tissue calcifications of uncertain etiology. The calvarium is int act without fracture. Visualized sinuses are clear. IMPRESSION: New 2.4 cm right basal ganglia acute intraparenchymal hematoma with new frontal scalp hem atomas. Critical results communicated to patient's ICU nurse via telephone at time of dictation.
[2019-01-12] MEDS: IDARUCIZUMAB 2.5 GM in EMPTY BAG 1 BAG IV SCH ×2 (12:14→12:32)
[2019-01-12] MEDS ORDERED: SODIUM CHLORIDE 0.9% 1,000 ML IV SCH (12:15)
[2019-01-12 12:19] VITALS: TEMP 97.7
[2019-01-12] MEDS ORDERED: MIDODRINE 5 MG TAB PO SCH (12:30)
[2019-01-12 12:53] LABS: HCT 39.1 % (34.0-46.0); HGB 13.7 gm/dL (11.4-16.0); MCH 30.4 pg (25.0-35.0); MCHC 35.1 g/dL (31.0-37.0); MCV 86.6 fL (80.0-100.0); Mean Platelet Volume 7.2; Platelet Count 183 k/uL (150-450); RBC 4.52 m/uL (3.80-5.40); RDW 14.4 % (11.5-15.5); WBC 7.3 k/uL (3.8-10.6)
[2019-01-12] MEDS ORDERED: SODIUM CHLORIDE 0.9% 500 ML 500 ML IV ONE (13:06)
[2019-01-12 14:20] VITALS: BP 91/70; PULSE 84; RESP 13
--- NOTE | 2019-01-12 16:35 | P.CNPUL ---
History of Present Illness Consult date: 01/12/19 Requesting physician: Luanne Pan Reason for consult: other Chief complaint: Acute hemorrhagic stroke History of present illness: This is 73-year-old white female patient of Dr. Resendiz, was admitted to the hospital on 01/04/2019 when she came in for evaluation of altered mentation, increased fatigue, weakness, patient had falls at home, shortness of breath, and diffuse paresthesias. Patient denied any chest pain, no isolated areas of weakness, there were no difficulties with speech. Medical history is positive for chronic atrial fibrillation on Pradaxa, hypertension, hyperlipidemia, hypothyroidism, neurofibromatosis, his story of previous CVA/TIA with slight left-sided weakness, seizure disorder, anxiety, depression, patient is a current smoker. CT of the brain and neck showed no acute fracture or dislocation, in no acute intracranial hemorrhage or midline shift. There was a resolving anterior frontal hematoma. Chest x-ray on admission showed cardiomegaly and chronic parenchymal changes without pulmonary process. EKG showed atrial fibrillation with a slow ventricular response, troponins were 0.03 , 0.04, 0.03. Patient was found to be in acute kidney injury, and she has had a recent cardiac catheterization, and this was suspected to be related to contrast nephropathy. Patient was rehydrated, subsequent improvement of patient 's renal profile. Of note recent cardiac catheterization did not reveal any significant obstructive coronary artery disease. Patient had been afebrile, her mentation was improving. Today on 01/12/2019 patient developed left-sided weakness, she was noted to be hypotensive, rapid response team was called, " code stroke was called, and patient had a stat brain CT which revealed a 2.4 cm right basal ganglia acute intraparenchymal hematoma with new frontal scalp hematomas. Patient is transferred to the intensive care unit, and arrangements were made to transfer the patient to the [facility] for neurological evaluation, we spoke to a neurologist from [facility], and a recommendation was made to give the patient Praxbind to reverse Pradaxa. Patient remains awake and alert, with persistent left-sided facial droop, and left-sided arm and leg weakness, no speech difficulty, no difficulty breathing, she maintained stable saturations on room air, awake and alert, no headaches, no lightheadedness or dizziness, no chest pain. Is given IV fluid bolus of 0.9 normal saline of 500 mL and her blood pressure improved to 126/76, maintained in A. fib with controlled rate. Patient was accepted a [facility] received a bed, and was transferred there per EMS. Review of Systems All systems: negative Constitutional: Denies chills, Denies fever Eyes: denies blurred vision, denies pain Ears, nose, mouth and throat: Denies headache, Denies sore throat Cardiovascular: Denies chest pain, Denies shortness of breath Respiratory: Denies cough Gastrointestinal: Denies abdominal pain, Denies diarrhea, Denies nausea, Denies vomiting Genitourinary: Denies dysuria, Denies hematuria Musculoskeletal: Denies myalgias Integumentary: Denies pruritus, Denies rash Neurological: Denies numbness, Denies weakness Psychiatric: Denies anxiety, Denies depression Endocrine: Denies fatigue, Denies weight change Past Medical History Past Medical History: Atrial Fibrillation, Heart Failure, COPD, CVA/TIA, Fibromyalgia, Hyperlipidemia, Hypertension, Pneumonia, Seizure Disorder, Thyroid Disorder Additional Past Medical History / Comment(s): 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 She did see quit for short period 2013. No alcohol use, marijuana use, illicit drug use. - Past Family History Father Additional Family Medical History / Comment(s): AT AGE 96, MACULAR DEGENERATION, AFIB AT AGE 90 Mother Family Medical History: No Reported History Additional Family Medical History / Comment(s): MOM AT AGE 89-ALZHEIMERS Medications and Allergies Home Medications Medication Instructions Recorded Confirmed Type DULoxetine HCL [Cymbalta] 60 mg PO DAILY 07/27/14 01/04/19 History Digoxin [Digox] 125 mcg PO DAILY 09/01/14 01/04/19 History Aspirin 81 mg PO DAILY 11/29/16 01/04/19 History Budesonide/Formoterol Fumarate 2 puff INHALATION RT-BID 12/23/18 01/04/19 History [Symbicort 160-4.5 Mcg Inhaler] Levothyroxine Sodium [Synthroid] 50 mcg PO DAILY 12/23/18 01/04/19 History Simvastatin [Zocor] 80 mg PO HS 12/23/18 01/04/19 History Pantoprazole Sodium [Protonix] 40 mg PO DAILY #30 tablet. 12/25/18 01/04/19 Rx Dabigatran [Pradaxa] 150 mg PO BID cap 01/11/19 Rx Diclofenac Sodium Gel [Voltaren 4 gm TOPICAL QID PRN tube 01/11/19 Rx Gel] Furosemide [Lasix] 20 mg PO DAILY #0 01/11/19 01/04/19 Rx Gabapentin [Neurontin] 400 mg PO TID #9 cap 01/11/19 Rx Metoprolol Tartrate [Lopressor] 25 mg PO BID #0 01/11/19 01/04/19 Rx busPIRone HCl [Buspar] 10 mg PO BID #60 tab 01/11/19 Rx Metoprolol Tartrate [Lopressor] 25 mg PO BID tab 01/12/19 Rx Midodrine [ProAmatine] 10 mg PO AC-TID tab 01/12/19 Rx clonazePAM [KlonoPIN] 0.5 mg PO HS #3 tab 01/12/19 Rx Allergies Allergy/AdvReac Type Severity Reaction Status Date / Time adhesive tape Allergy Rash/ITCHIN Verified 01/04/19 16:16 G codeine Allergy Unknown Verified 01/04/19 16:16 latex Allergy Rash/Hives Verified 01/04/19 16:16 meperidine HCl [From Demerol] AdvReac Nausea & Verified 01/04/19 16:16 Vomiting,HEADACHE Physical Exam Vitals: Vital Signs Temp Pulse Pulse Pulse Resp BP BP 01/12/19 14:10 84 13 91/70 01/12/19 14:00 72 14 118/75 01/12/19 13:51 70 16 135/75 01/12/19 13:40 82 16 114/68 01/12/19 13:31 77 16 118/63 01/12/19 13:20 76 20 109/77 01/12/19 13:10 83 11 L 108/68 01/12/19 13:00 80 14 125/71 01/12/19 12:50 81 19 114/74 01/12/19 12:40 75 10 L 133/75 01/12/19 12:30 82 10 L 121/80 01/12/19 12:20 74 21 120/85 01/12/19 12:10 97.7 F 80 14 126/70 01/12/19 11:20 01/12/19 11:15 01/12/19 07:00 98.0 F 74 16 01/11/19 22:42 97.7 F 73 18 110/68 BP BP BP Pulse Ox 01/12/19 14:10 96 01/12/19 14:00 97 01/12/19 13:51 96 01/12/19 13:40 93 L 01/12/19 13:31 95 01/12/19 13:20 96 01/12/19 13:10 83 L 01/12/19 13:00 93 L 01/12/19 12:50 96 01/12/19 12:40 95 01/12/19 12:30 93 L 01/12/19 12:20 98 01/12/19 12:10 96 01/12/19 11:20 143/70 01/12/19 11:15 53/41 01/12/19 07:00 90/54 94 L 01/11/19 22:42 96 Intake and Output 01/12/19 01/12/19 01/12/19 06:59 14:59 22:59 Intake Total 100 520 Output Total 500 Balance 100 20 Intake: IV 200 Idarucizumab 2.5 gm In 100 Empty Bag 1 bag @ 300 mls /hr IV Q10M TANA Rx#: [id number] Sodium Chloride 0.9% 1, 100 000 ml @ 50 mls/hr IV . Q20H TANA Rx#:[id number] Oral 100 320 Output: Urine 500 Other: Voiding Method Indwelling Catheter # Voids 1 GENERAL EXAM: Alert, pleasant, 73-year-old white female, with the left-sided facial droop, and left-sided arm and leg weakness, no speech difficulty, denies any acute distress comfortable in no apparent distress. HEAD: Normocephalic/atraumatic. EYES: Normal reaction of pupils, equal size. Conjunctiva pink, sclera white. NOSE: Clear with pink turbinates. THROAT: No erythema or exudates. NECK: No masses, no JVD, no thyroid enlargement, no adenopathy. CHEST: No chest wall deformity. Symmetrical expansion. LUNGS: Equal air entry with no crackles, wheeze, rhonchi or dullness. CVS: Irregular rate and rhythm, normal S1 and S2, no gallops, no murmurs, no rubs ABDOMEN: Soft, nontender. No hepatosplenomegaly, normal bowel sounds, no guarding or rigidity. EXTREMITIES: No clubbing, no edema, no cyanosis, 2+ pulses and upper and lower extremities. MUSCULOSKELETAL: Muscle strength and tone normal. SPINE: No scoliosis or deformity SKIN: No rashes CENTRAL NERVOUS SYSTEM: Alert and oriented -3. Slight facial weakness on the left, and the left arm and left leg weakness Results - Laboratory Findings CBC and BMP: 01/12/19 12:30 01/11/19 09:07 PT/INR, D-dimer PT 11.5 sec (9.0-12.0) 01/04/19 17:08 INR 1.1 (<1.2) 01/04/19 17:08 Abnormal lab findings: Abnormal Labs 01/04/19 01/04/19 01/04/19 17:08 17:08 17:08 Hgb 16.3 H Lymphocytes # 0.9 L APTT Sodium 133 L Potassium 3.4 L Chloride 90 L Carbon Dioxide 32 H BUN 41 H Creatinine 1.53 H Glucose 100 H POC Glucose (mg/dL) Calcium Magnesium Creatine Kinase Total Creatine Kinase Troponin I 0.039 H* Total Protein 5.9 L Urine Blood Urine Mucus 01/04/19 01/04/19 01/04/19 17:08 19:10 23:39 Hgb Lymphocytes # APTT 34.5 H Sodium Potassium Chloride Carbon Dioxide BUN Creatinine Glucose POC Glucose (mg/dL) Calcium Magnesium Creatine Kinase Total Creatine Kinase Troponin I 0.041 H* Total Protein Urine Blood Small H Urine Mucus Rare H 01/05/19 01/06/19 01/09/19 05:15 05:10 09:25 Hgb Lymphocytes # APTT Sodium 135 L Potassium 3.3 L Chloride Carbon Dioxide BUN 28 H Creatinine 1.17 H Glucose POC Glucose (mg/dL) Calcium 8.2 L Magnesium Creatine Kinase 20 L Total Creatine Kinase 27 L Troponin I 0.039 H* Total Protein Urine Blood Urine Mucus 01/10/19 01/10/19 01/11/19 09:46 09:46 09:07 Hgb Lymphocytes # APTT Sodium 136 L Potassium Chloride 96 L 95 L Carbon Dioxide 35 H 35 H BUN Creatinine 1.07 H 1.19 H Glucose POC Glucose (mg/dL) Calcium Magnesium 1.3 L Creatine Kinase Total Creatine Kinase Troponin I Total Protein Urine Blood Urine Mucus 01/12/19 11:25 Hgb Lymphocytes # APTT Sodium Potassium Chloride Carbon Dioxide BUN Creatinine Glucose POC Glucose (mg/dL) 115 H Calcium Magnesium Creatine Kinase Total Creatine Kinase Troponin I Total Protein Urine Blood Urine Mucus - Diagnostic Findings Chest x-ray: report reviewed, image reviewed Additional studies: CT brain Assessment and Plan Plan: Assessment: #1. Acute hemorrhagic CVA, CT brain showed 2.4 centimeter right basal ganglia acute intraparenchymal hematoma with a new frontal scalp hematomas #2. Left-sided weakness, of the left arm and left leg, with left-sided facial weakness, related to the above #3. Chronic atrial fibrillation on anticoagulation with production #4. Acute kidney injury related to dehydration and contrast nephropathy, improved with hydration #5. Elevated troponin #6. Weakness, orthostatic hypotension, metabolic encephalopathy related to dehydration, acute kidney injury on admission, improved with hydration #7. History of seizure disorder, hypertension, hyperlipidemia, neuropathy, hypothyroidism, COPD which is stable at this time, crying diastolic heart failure, generalized anxiety disorder, esophagitis, osteoarthritis, vascular dementia, previous history of CVA/TIA Plan: Patient was given a fluid bolus blood pressure has stabilized, she remained awake and alert, no respiratory difficulty, she maintains to stable saturations on room air, she did have persistent left-sided weakness, arrangements were made regarding transfer to a tertiary [facility] with neurology coverage for neurologic evaluation in regards to acute hemorrhagic CVA. Blood access was put on hold, a dose of Praxbind was infused. She was accepted at the [facility] and the bed was available, she was transferred there per EMS. I performed a history & physical examination of the patient and discussed their management with my nurse practitioner, Melania Bryan. I reviewed the nurse practitioner's note and agree with the documented findings and plan of care. Lung sounds are clear. The findings and the impression was discussed with the patient. I attest to the documentation by the nurse practitioner. Time with Patient: Greater than 30
[2019-01-12] MEDS ORDERED: clonazePAM 0.5 MG TAB PO SCH (21:00)
--- NOTE | 2019-01-13 14:42 | P.PN ---
Subjective Progress Note Date: 01/11/19 This is a 73-year-old female patient of Dr Jones, Dr. Rasmussen, Dr. Littlejohn. She has underlying history of epilepsy, neurofibromatosis, COPD, CAD, chronic atrial fibrillation on Pradaxa, hypertension, hyperlipidemia, active tobacco use and dependence, hypothyroidism. She had a recent hospitalization in December and treated for acute diastolic heart failure and there was concern for underlying coronary artery disease and patient came back in for heart catheterization as an outpatient on January 01 that found mild nonobstructing coronary artery disease involving the left circumflex and ramus intermedius coronary arteries. Recommendations were to maximize medical treatment and aggressive cholesterol control. She had GI symptoms for which she is scheduled for EGD with Dr. Beebe. Echocardiogram from December 2017 reveals EF of 55-60% with mild concentric left ventricular hypertrophy, LA severely dilated greater than 40, mild aortic valve sclerosis, trace mitral regurgitation, mild tricuspid regurgitation Patient apparently is having trouble with falling at home. She states she was at Dr. Jones's office yesterday. Patient is quite drowsy and a poor historian. Patient came into [facility] emergency center for evaluation. Initial vital signs were temperature 97.3, pulse 74, blood pressure 124/66 and pulse ox on her percent. EKG was A. fib at rate of 57. White count normal, hemoglobin 16.3, platelet count 191. Sodium 133, potassium 3.4, chloride 90 CO2 32, BUN 41 and creatinine 1.53. Blood sugar 100. Troponin 0.039. TSH 2.200. Lactic acid 1.7. Urinalysis was clear, blood small, nitrate and leukoesterase negative. Chest x-ray reveals cardiomegaly with chronic parenchymal changes without acute pulmonary process. CT of the brain and C- spine showed no acute fracture dislocation of the cervical spine. No acute intracranial hemorrhage or midline shift. Resolving anterior frontal hematoma noted. Patient will be started on IV fluids and home medications resumed, cardiology consult requested and monitor renal function. Noted the patient was given IV Ativan last night for insomnia which is contributing to her mental status changes. 01/06: Patient has been seen by cardiology with recommendations to continue current medications and plan for follow-up with Dr. Rasmussen in the office. Patient is scheduled for EGD on Friday with Dr. Chavez and Pradaxa will be on hold. Patient states that she walked to the bathroom today and out into the hallway. She states she was a little off balance but denies any dizziness. She denies any shortness of breath or abdominal pain. Potassium 3.3 will be replaced. Repeat BUN is at 28 and creatinine 1.17. CBC within normal limits. Triglycerides 106, cholesterol 123, LDL 59, HDL 43. PT has recommended subacute rehab and patient will go to the [facility] or [facility]. Anticipate she will be ready for discharge by tomorrow. She'll be continued on IV fluids for several more hours at reduced rate of 50 mL per hour. 01/07: Patient has been afebrile, blood pressure 98/54 to 129/58, heart rate running in the 70s, pulse ox 98% on room air. IV fluids have been discontinued. Patient is willing to go to [facility] but apparently daughter wanted her to go to [facility]. Case management and oncology social work are working on discharge plan. Patient will be discharged today once insurance authorization is obtained. 01/08: The patient was unable to be discharged yesterday as insurance authorization was not obtained. This morning, patient is found to have orthostatic positive vital signs and given IV fluid bolus followed by IV fluids. Patient underwent EGD with Dr. Chavez that found linear erosions in the distal esophagus consistent with LA grade B reflux esophagitis and diffuse gastritis and duodenitis. Biopsy was obtained. Recommendations for Protonix 40 mg daily and advance diet as tolerated. Patient has returned to the cardiac stepdown unit and her blood pressure is 85/59. IV fluids will be continued. No plan for discharge at this point. She was authorization remains pending anyway. 01/09: Patient is complaining of feeling achy all over hold onto her shoulders. A call was placed last night and Voltaren gel was ordered but patient did not get any relief from this and she received morphine. Klonopin was to be changed to at bedtime only which will be done now. Gabapentin also decreased from 600- 400 mg 3 times daily. IV fluids will be stopped and patient to increase oral intake. Tylenol scheduled twice daily. Check orthostatic vital signs tomorrow. At this time, insurance has denied authorization for subacute rehab. 01/10: Patient had more confusion yesterday had mental status is somewhat improved today but she does have some tremors noted. We did discontinue the morning Klonopin. We will add in BuSpar 10 mg twice daily. The patient had a fall at home in the bathroom prior to admission and she is complaining of right shoulder pain and we will obtain an x-ray. She has been afebrile, heart rate running in the 60s and 70s, blood pressure 114/61, pulse ox 95% on room air. Vitamin B12 came back at 877. Anticipate discharge tomorrow for evaluation occurs over the phone with insurance company. 01/11: Daughter verbalizes that patient has had on and off confusion since she had her stroke. Most likely this is secondary to vascular dementia. She has also been experiencing the same while hospitalized. She is more confused today from yesterday but is able to follow commands and answer simple questions. X- ray of the right shoulder reveal osteoarthritic degenerative change. No acute osseous abnormality. Patient had orthostatics done yesterday that did show a 20 point change from sitting to standing. Lasix will be decreased to 20mg daily. She has been afebrile, blood pressure 101/53, pulse ox 95% on room air, heart rate running in the 50s and 60s. Patient has been evaluated by Dr. Elaine and is following therapy. We will plan for discharge to either [facility] or [facility] patient Rehab at [facility] today once arrangements are completed. Dr. Pan is waiting for insurance called sometime today before 5 PM regarding [id number] evaluation for rehab. Review Of Systems: Constitutional: No fever, no chills, no night sweats. No weight change. Reports weakness, fatigue or lethargy. Denies daytime sleepiness. EENT: No headache. No blurred vision or double vision, no loss of vision. No loss of Hearing, no ringing in the ears, no dizziness. No nasal drainage or congestion. No epistaxis. No sore throat. Lungs: No shortness of breath, cough, no sputum production. No wheezing. Cardiovascular: No chest pain, no lower extremity edema. No palpitations. No paroxysmal nocturnal dyspnea. No orthopnea. No lightheadedness or dizziness. No syncopal episodes. Abdominal: No abdominal pain. No nausea, vomiting. No diarrhea. No constipation. No bloody or tarry stools. Genitourinary: No dysuria, increased frequency, urgency. No urinary retention. Musculoskeletal: Reports myalgias. No muscle weakness, no gait dysfunction, no frequent falls. No back pain. No neck pain. Integumentary: No wounds, no lesions. No rash or pruritus. No unusual bruising. No change in hair or nails. Neurologic: No aphasia. No facial droop. No change in mentation. No head injury. No headache. No paralysis. No paresthesia. Reports balance change. Psychiatric: No depression. No anxiety. No mood swings. Endocrine: No abnormal blood sugars. No weight change. No excessive sweating or thirst. No cold intolerance. No weight change. Objective - Vital Signs Vital signs: Vital Signs Temp 98.1 F 01/11/19 06:00 Pulse 64 01/11/19 06:00 Resp 16 01/11/19 06:00 BP 101/53 01/11/19 06:00 Pulse Ox 95 01/11/19 06:00 Intake & Output 01/10/19 01/11/19 01/11/19 18:59 06:59 18:59 Intake Total 700 Balance 700 Weight 55.2 kg Intake: Oral 700 Other: # Voids 3 3 1 - Exam Gen: This is a 73-year-old female. Patient is in the bathroom appears to be comfortable and in no acute distress. Mild confusion. Patient can answer questions appropriately HEENT: Head is atraumatic, normocephalic. Pupils equal, round. Sclerae is anicteric. Conjunctiva pink. Mucous members of the mouth are somewhat dry. NECK: Supple. No JVD. No lymphadenopathy. No thyromegaly. LUNGS: Diminished with crackles bilaterally. No intercostal retractions. HEART: Irregularly irregular with a systolic murmur. ABDOMEN: Soft. Bowel sounds are present. No masses. No tenderness. EXTREMITIES: No pedal edema. No calf tenderness. Dorsalis pedis +2 bilaterally. NEUROLOGICAL: Patient is awake, alert and oriented x3. Cranial nerves 2 through 12 are grossly intact. - Labs CBC & Chem 7: 01/12/19 12:30 01/11/19 09:07 Labs: Abnormal Lab Results - Last 24 Hours (Table) 01/10/19 01/11/19 Range/Units 09:46 09:07 Sodium 136 L (137-145) mmol/L Chloride 96 L 95 L (98-107) mmol/L Carbon Dioxide 35 H 35 H (22-30) mmol/L Creatinine 1.07 H 1.19 H (0.52-1.04) mg/dL Assessment and Plan Plan: 1. Acute kidney injury secondary to dehydration and recent heart catheterization. IV fluids discontinued. Avoid nephrotoxic agents. 2. Abnormal troponin. Repeat ordered. Echocardiogram as above. Cardiology on consult. 3. Hypotension, generalized weakness and metabolic encephalopathy secondary to dehydration, acute kidney injury and Ativan. Midodrine added 4. Chronic atrial fibrillation. Resume Pradaxa. Continue digoxin 125 g daily , aspirin 81 mg daily, Lopressor 50 mg twice daily. 5. Known history of epilepsy. Continue gabapentin 600 mg 3 times daily. 6. Hypertension. Continue Lopressor. 7. Hyperlipidemia. Continue simvastatin 80 mg at bedtime. 8. Neuropathy. Continue gabapentin 600 mg orally tid. 9. Hypothyroidism. Continue Synthroid 50 g daily. TSH 1.910. 10. COPD. Continue Symbicort twice daily and DuoNeb treatments as needed. 11. Chronic diastolic heart failure. Lasix 40 mg twice daily. Continue Lopressor. 12. Recent weight loss with COPD, active tobacco use. CAT scan of the chest was done on last admission. 13. Metabolic encephalopathy with mild confusion of most likely secondary to combination of Ativan and acute kidney injury. 14. Generalized anxiety disorder. Continue Cymbalta 60 mg daily, gabapentin decreased to 400 mg 3 times daily. Klonopin decreased to 1 mg at bedtime only. 15. GI prophylaxis. Pepcid. 16. DVT prophylaxis.David hose knee-high. 17. Distal esophageal esophagitis, gastritis and duodenitis. Continue Protonix 18. Right shoulder pain following fall at home, x-ray ordered Discharge plan: on Friday after insurance authorization has been obtained Impression and plan of care have been directed as dictated by the signing physician. Re Saeed nurse practitioner acting as scribe for signing physician.
== END 2019-01-12 14:52 | disposition short-term general hospital (02) | DRG 682 ==
LOC: EC 15:01 → 3NMEDONC 19:34 → 3SCARD 01-05 18:33 → 4MS4W 01-08 23:54 → 2SICU 01-12 11:38
PROVIDERS: ADMIT Internal Medicine; ATTEND Internal Medicine
PROC: 0DB38ZX Excision of Lower Esophagus, Via Natural or Artificial Opening Endoscopic, Diagnostic (ICD-10-PCS; principal; 2019-01-04)
PROC: 0DB68ZX Excision of Stomach, Via Natural or Artificial Opening Endoscopic, Diagnostic (ICD-10-PCS; 2019-01-04)
DX: N17.9 Acute kidney failure, unspecified (principal); G92 Toxic encephalopathy; I61.8 Other nontraumatic intracerebral hemorrhage; I50.32 Chronic diastolic (congestive) heart failure; I48.1 Persistent atrial fibrillation; G81.94 Hemiplegia, unspecified affecting left nondominant side; R29.810 Facial weakness; R29.6 Repeated falls; K20.9 Esophagitis, unspecified; K29.70 Gastritis, unspecified, without bleeding; K29.80 Duodenitis without bleeding; G40.909 Epilepsy, unspecified, not intractable, without status epilepticus; J44.9 Chronic obstructive pulmonary disease, unspecified; E86.0 Dehydration; I25.10 Atherosclerotic heart disease of native coronary artery without angina pectoris; E78.5 Hyperlipidemia, unspecified; F01.50 Vascular dementia, unspecified severity, without behavioral disturbance, psychotic disturbance, mood disturbance, and anxiety; I08.3 Combined rheumatic disorders of mitral, aortic and tricuspid valves; T42.4X5A Adverse effect of benzodiazepines, initial encounter; M19.011 Primary osteoarthritis, right shoulder; F41.1 Generalized anxiety disorder; E03.9 Hypothyroidism, unspecified; Q85.00 Neurofibromatosis, unspecified; G47.00 Insomnia, unspecified; G62.9 Polyneuropathy, unspecified; I11.0 Hypertensive heart disease with heart failure; F17.210 Nicotine dependence, cigarettes, uncomplicated; Z79.02 Long term (current) use of antithrombotics/antiplatelets; E87.6 Hypokalemia; I95.1 Orthostatic hypotension; N14.1 Nephropathy induced by other drugs, medicaments and biological substances; T50.8X5A Adverse effect of diagnostic agents, initial encounter; M19.90 Unspecified osteoarthritis, unspecified site; M79.7 Fibromyalgia; I69.311 Memory deficit following cerebral infarction; Z90.710 Acquired absence of both cervix and uterus; Z91.81 History of falling; Z87.440 Personal history of urinary (tract) infections; Z87.01 Personal history of pneumonia (recurrent); Z82.0 Family history of epilepsy and other diseases of the nervous system; Z79.899 Other long term (current) drug therapy; Z79.890 Hormone replacement therapy; Z79.82 Long term (current) use of aspirin; Z79.51 Long term (current) use of inhaled steroids; Z88.5 Allergy status to narcotic agent; Z88.8 Allergy status to other drugs, medicaments and biological substances; Z91.040 Latex allergy status
CPT/HCPCS: 36415; 43239; 70450; 71046; 72125; 80048; 80053; 80061; 81001; 82550; 82553; 82607; 83605; 83735; 84100; 84443; 84484; 85025; 85027; 85610; 85730; 88305; 88312; 93005; 94640; 94760; 96361; 96374; 96375; 99285